=== PATIENT | male | born 1960 | race Caucasian/White ===

== ENCOUNTER → 2016-07-25 | Outpatient (CLI) | payer BC ==
[2016-07-25 08:21] LABS: MEAN CORPUSCULAR HEMOGLOBIN 30.2 pg (27.0-33.0); MEAN CORPUSCULAR HGB CONC 33.6 g/dl (32.0-36.5); MEAN CORPUSCULAR VOLUME 89.8 fl (80.0-96.0); RED CELL DISTRIBUTION WIDTH 13.7 % (11.5-14.5); WHITE BLOOD COUNT 4.7 K/mm3 (4.0-10.0)
[2016-07-25 08:26] LABS: ALBUMIN 4.1 GM/DL (3.2-5.2); ALBUMIN/GLOBULIN RATIO 1.52 (1.00-1.93); ALKALINE PHOSPHATASE 118 U/L (45-117); ALT/SGPT 47 U/L (12-78); ANION GAP 8 MEQ/L (8-16); AST/SGOT 21 U/L (15-37); BILIRUBIN,TOTAL 0.8 MG/DL (0.2-1.0); BLOOD UREA NITROGEN 18 MG/DL (7-18); CALCIUM LEVEL 8.9 MG/DL (8.5-10.1); CARBON DIOXIDE LEVEL 25 MEQ/L (21-32); CHLORIDE LEVEL 108 MEQ/L (98-107); CREATININE FOR GFR 1.09 MG/DL (0.70-1.30); GLOMERULAR FILTRATION RATE > 60.0 (>56); GLUCOSE, FASTING 91 MG/DL (70-105); IMMUNOGLOBULIN A 95.9 MG/DL (70-400); MAGNESIUM LEVEL 2.2 MG/DL (1.8-2.4); POTASSIUM SERUM 4.3 MEQ/L (3.5-5.1); SODIUM LEVEL 141 MEQ/L (136-145); TOTAL PROTEIN 6.8 GM/DL (6.4-8.2)
[2016-07-25 09:02] LABS: VITAMIN B12 LEVEL 366 PG/ML (247-911)
[2016-07-30 00:06] LABS: ANTI-SACCHAROMYCES CEREV. IgA <20.0 Units (0.0-24.9); ANTI-SACCHAROMYCES CEREV. IgG <20.0 Units (0.0-24.9); ENDOMYSIAL ABY IgA Negative (Negative); TISSUE TRANSGLUTAMINASE IgG <2 U/mL (0-5)
== END ==
LOC: M LAB 07:32
PROVIDERS: ATTEND Internal Medicine Gastroenterology
DX: K21.9 Gastro-esophageal reflux disease without esophagitis (principal); K59.1 Functional diarrhea; D51.8 Other vitamin B12 deficiency anemias; E55.9 Vitamin D deficiency, unspecified

== ENCOUNTER → 2016-11-26 | Outpatient (REF) | payer BC | LOC: M SFHCCLAY 15:20 | PROVIDERS: ATTEND Nurse Practitioner | DX: B34.9 Viral infection, unspecified (principal) ==

== ENCOUNTER → 2017-05-12 | Outpatient (CLI) | payer BC ==
--- NOTE | 2017-05-12 16:15 | REP ---
Clinical: Nontraumatic pain times 2 weeks. Technique: AP, lateral, bilateral oblique and sunrise views left knee. Findings: The osseous structures and joint spaces are intact and relatively normal for age. There is no evidence for acute fracture or dislocation. No definite joint effusion is appreciated. Surrounding soft tissues are unremarkable. No subcutaneous emphysema or radiodense foreign body. Impression: Mild age-related changes. No acute fracture or dislocation.
== END ==
LOC: M CLY 15:37
PROVIDERS: ATTEND Family Medicine
DX: M25.562 Pain in left knee (principal)

== ENCOUNTER → 2017-11-03 | Outpatient (CLI) | payer BC ==
[2017-11-03 11:18] LABS: HEMATOCRIT 41.5 % (42.0-52.0); HEMOGLOBIN 14.1 g/dl (13.5-17.5); MEAN CORPUSCULAR HEMOGLOBIN 30.4 pg (27.0-33.0); MEAN CORPUSCULAR VOLUME 89.4 fl (80.0-96.0); PLATELET COUNT, AUTOMATED 132 10^3/uL (150-450); RED BLOOD COUNT 4.64 10^6/uL (4.30-6.10); RED CELL DISTRIBUTION WIDTH 13.1 % (11.5-14.5); WHITE BLOOD COUNT 4.9 10^3/uL (4.0-10.0)
[2017-11-03 11:52] LABS: TOTAL 25(OH) VITAMIN D 30.1 NG/ML (30.0-100.0)
[2017-11-03 12:00] LABS: ALBUMIN 4.1 GM/DL (3.2-5.2); ALBUMIN/GLOBULIN RATIO 1.37 (1.00-1.93); ALKALINE PHOSPHATASE 148 U/L (45-117); ALT/SGPT 70 U/L (12-78); ANION GAP 5 MEQ/L (8-16); AST/SGOT 37 U/L (7-37); BILIRUBIN,TOTAL 1.2 MG/DL (0.2-1.0); BLOOD UREA NITROGEN 13 MG/DL (7-18); CALCIUM LEVEL 8.8 MG/DL (8.5-10.1); CARBON DIOXIDE LEVEL 26 MEQ/L (21-32); CHLORIDE LEVEL 109 MEQ/L (98-107); CREATININE FOR GFR 1.13 MG/DL (0.70-1.30); GLOMERULAR FILTRATION RATE > 60.0 (>56); GLUCOSE, FASTING 96 MG/DL (70-100); MAGNESIUM LEVEL 2.4 MG/DL (1.8-2.4); POTASSIUM SERUM 4.3 MEQ/L (3.5-5.1); SODIUM LEVEL 140 MEQ/L (136-145); TOTAL PROTEIN 7.1 GM/DL (6.4-8.2)
== END ==
LOC: M LAB 10:34
DX: K59.1 Functional diarrhea (principal); K44.9 Diaphragmatic hernia without obstruction or gangrene; K57.30 Diverticulosis of large intestine without perforation or abscess without bleeding; K22.70 Barrett's esophagus without dysplasia
CPT/HCPCS: 83735

== ENCOUNTER → 2017-11-19 | Outpatient (CLI) | payer BC ==
[2017-11-19 15:42] LABS: ALKALINE PHOSPHATASE 147 U/L (45-117); BILIRUBIN,DIRECT 0.2 MG/DL (0.0-0.2); BILIRUBIN,TOTAL 0.9 MG/DL (0.2-1.0); GAMMA GLUTAMYLTRANSPEPTIDASE 573 U/L (15-85)
[2017-11-19 16:25] LABS: STABLE ALKPHOS 32 U/L
[2017-11-19 16:27] LABS: LABILE ALKPHOS 115 U/L
== END ==
LOC: M LAB 14:10
DX: K22.70 Barrett's esophagus without dysplasia (principal); R19.5 Other fecal abnormalities; Z86.010 Personal history of colon polyps; R74.8 Abnormal levels of other serum enzymes
CPT/HCPCS: 82247

== ENCOUNTER → 2018-01-07 | Outpatient (CLI) | payer BC ==
[2018-01-07 09:47] LABS: RHEUMATOID FACTOR QUANT < 10.0 IU/ML (<15.0)
[2018-01-07 09:47] LABS: URIC ACID 8.5 MG/DL (3.5-7.2)
[2018-01-07 09:53] LABS: HEMATOCRIT 41.4 % (42.0-52.0); HEMOGLOBIN 14.1 g/dl (13.5-17.5); MEAN CORPUSCULAR HEMOGLOBIN 30.7 pg (27.0-33.0); MEAN CORPUSCULAR HGB CONC 34.1 g/dl (32.0-36.5); MEAN CORPUSCULAR VOLUME 90.2 fl (80.0-96.0); PLATELET COUNT, AUTOMATED 125 10^3/uL (150-450); RED BLOOD COUNT 4.59 10^6/uL (4.30-6.10); RED CELL DISTRIBUTION WIDTH 12.8 % (11.5-14.5); WHITE BLOOD COUNT 4.9 10^3/uL (4.0-10.0)
[2018-01-07 10:31] LABS: ERYTHROCYTE SEDIMENTATION RATE 7 mm/hr (0-20)
[2018-01-10 00:14] LABS: ANTINUCLEAR ANTIBODIES DIRECT Negative (Negative); Lyme Disease IgG Ab 18 kDa Ban Absent (.); Lyme Disease IgG Ab 23 kDa Ban Absent (.); Lyme Disease IgG Ab 28 kDa Ban Absent (.); Lyme Disease IgG Ab 30 kDa Ban Absent (.); Lyme Disease IgG Ab 39 kDa Ban Absent (.); Lyme Disease IgG Ab 41 kDa Ban Present (.); Lyme Disease IgG Ab 45 kDa Ban Absent (.); Lyme Disease IgG Ab 58 kDa Ban Absent (.); Lyme Disease IgG Ab 66 kDa Ban Absent (.); Lyme Disease IgG Ab 93 kDa Ban Absent (.); Lyme Disease IgG West Blot Int Negative (.); Lyme Disease IgG/IgM Antibodie <0.91 ISR (0.00-0.90); Lyme Disease IgM Ab 23 kDa Ban Present (.); Lyme Disease IgM Ab 39 kDa Ban Absent (.); Lyme Disease IgM Ab 41 kDa Ban Absent (.); Lyme Disease IgM Ab Quantitati 1.05 index (0.00-0.79); Lyme Disease IgM West Blot Int Negative (.)
== END ==
LOC: M LAB 08:15
DX: M79.674 Pain in right toe(s) (principal)
CPT/HCPCS: 73630

== ENCOUNTER → 2018-07-22 | Outpatient (CLI) | payer BC ==
[2018-07-22 08:49] LABS: BLOOD UREA NITROGEN 17 MG/DL (7-18); CALCIUM LEVEL 8.1 MG/DL (8.5-10.1); CARBON DIOXIDE LEVEL 25 MEQ/L (21-32); CHLORIDE LEVEL 106 MEQ/L (98-107); CHOLESTEROL LEVEL 118 MG/DL (<200); CHOLESTEROL RISK RATIO 2.878 (<5); GLOMERULAR FILTRATION RATE > 60.0 (>56); GLUCOSE, FASTING 84 MG/DL (70-100); HDL CHOLESTEROL 41 MG/DL (>40); LDL CHOLESTEROL 0 MG/DL (<100); NON-HDL-C 77 MG/DL; POTASSIUM SERUM 4.3 MEQ/L (3.5-5.1); SODIUM LEVEL 138 MEQ/L (136-145); TRIGLYCERIDES LEVEL 384 MG/DL (<150)
[2018-07-24 08:38] LABS: VITAMIN B12 LEVEL 545 PG/ML (232-1245)
== END ==
LOC: M LAB 07:35
PROVIDERS: ATTEND Internal Medicine Cardiovascular Disease
DX: I25.10 Atherosclerotic heart disease of native coronary artery without angina pectoris (principal); D51.9 Vitamin B12 deficiency anemia, unspecified

== ENCOUNTER 2018-08-26 09:18 | Emergency (ER) | payer BC ==
[~2018-08-26] VITALS: Ht 185.4 cm; Wt 104.5 kg
[2018-08-26] MEDS ORDERED: PRED20TA (09:29)
[2018-08-26] MEDS ORDERED: VITA2000 (09:29)
[2018-08-26] MEDS ORDERED: ZYLO300T6 (09:29)
[2018-08-26] MEDS ORDERED: ATOR80TA59 (09:29)
[2018-08-26] MEDS ORDERED: METO1TAB7 (09:29)
[2018-08-26] MEDS ORDERED: OMEP20CA3 (09:29)
[2018-08-26] MEDS ORDERED: RAMI1CAP24 (09:30)
[2018-08-26] MEDS ORDERED: MECLIZINE 25 MG TABLET PO ONE (10:30)
[2018-08-26 10:51] LABS: BASO % 0.6 % (0.0-1.0); EOS # 0.1 10^3/uL (0.0-0.50); EOS % 2.8 % (0.0-3.0); HEMATOCRIT 41.6 % (42.0-52.0); HEMOGLOBIN 13.9 g/dl (13.5-17.5); LYMPH # 1.1 10^3/uL (1.5-4.5); LYMPH % 22.9 % (24.0-44.0); MEAN CORPUSCULAR HEMOGLOBIN 30.2 pg (27.0-33.0); MEAN CORPUSCULAR HGB CONC 33.4 g/dl (32.0-36.5); MEAN CORPUSCULAR VOLUME 90.4 fl (80.0-96.0); MONO # 0.3 10^3/uL (0.0-0.8); MONO % 5.6 % (0.0-5.0); NEUTROPHILS # 3.3 10^3/uL (1.8-7.7); NEUTROPHILS % 66.7 % (36.0-66.0); PLATELET COUNT, AUTOMATED 132 10^3/uL (150-450)
[2018-08-26 11:04] LABS: BLOOD UREA NITROGEN 13 MG/DL (7-18); CALCIUM LEVEL 8.8 MG/DL (8.5-10.1); CARBON DIOXIDE LEVEL 26 MEQ/L (21-32); CHLORIDE LEVEL 106 MEQ/L (98-107); CPK CREATINE PHOSPHOKINASE 110 U/L (39-308); CREATININE FOR GFR 1.05 MG/DL (0.70-1.30); GLOMERULAR FILTRATION RATE > 60.0 (>56); GLUCOSE, FASTING 98 MG/DL (70-100); MB/CK RELATIVE INDEX 1.36 (< OR =4); SODIUM LEVEL 139 MEQ/L (136-145); TROPONIN I 0.19 NG/ML (< 0.10)
--- NOTE | 2018-08-26 11:08 | REP ---
Clinical: Near-syncopal episode . Comparison: 09/08/2014 . Findings: The mediastinum and cardiac silhouette are stable and within normal limits for portable technique. The lung jefferson are clear without acute consolidation, effusion, or pneumothorax. Skeletal structures are intact. Impression: No acute cardiopulmonary process appreciated. Electronically Signed by Federico Higuera MD 08/26/2018 10:59 A
--- NOTE | 2018-08-26 11:11 | REP ---
CT Head without contrast HISTORY: Vertigo COMPARISON: None There is no intraparenchymal hemorrhage, acute infarct, mass or midline shift. The ventricular system is normal in appearance. A cavum septum pellucidi and vergae are present. The cortical sulci are dilated consistent with minimal volume loss. There is no extra cerebral collection. There is no fracture. The visualized sinuses are clear. IMPRESSION: Minimal volume loss. Electronically Signed by Richy Marsh MD 08/26/2018 11:02 A
[2018-08-26 12:31] VITALS: BP 129/86
[2018-08-26 12:44] LABS: MB/CK RELATIVE INDEX 1.46 (< OR =4); TROPONIN I 0.16 NG/ML (< 0.10)
[2018-08-26] MEDS ORDERED: MECL-68 PO (13:16)
--- NOTE | 2018-08-26 20:58 | ECGEPIP ---
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
--- NOTE | 2018-08-26 21:03 | ECGEPIP ---
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
== END 2018-08-26 13:33 | disposition home or self-care (01) ==
LOC: M ED 09:18
DX: H83.09 Labyrinthitis, unspecified ear (principal); I10 Essential (primary) hypertension; E78.5 Hyperlipidemia, unspecified; I25.10 Atherosclerotic heart disease of native coronary artery without angina pectoris; I25.2 Old myocardial infarction; Z95.5 Presence of coronary angioplasty implant and graft; Z79.899 Other long term (current) drug therapy

== ENCOUNTER → 2018-10-01 | Outpatient (CLI) | payer BC ==
[~2018-10-01] MED LIST: ATOR80TA59; MECL-68 PO; METO1TAB7; OMEP20CA3; PRED20TA; RAMI1CAP24; VITA2000; ZYLO300T6
[2018-10-01 11:26] LABS: HEMATOCRIT 42.9 % (42.0-52.0); HEMOGLOBIN 14.3 g/dl (13.5-17.5); MEAN CORPUSCULAR HGB CONC 33.3 g/dl (32.0-36.5); MEAN CORPUSCULAR VOLUME 89.9 fl (80.0-96.0); PLATELET COUNT, AUTOMATED 142 10^3/uL (150-450); RED BLOOD COUNT 4.77 10^6/uL (4.30-6.10); WHITE BLOOD COUNT 6.1 10^3/uL (4.0-10.0)
[2018-10-01 11:49] LABS: ALBUMIN 4.3 GM/DL (3.2-5.2); ALT/SGPT 50 U/L (12-78); BILIRUBIN,TOTAL 0.9 MG/DL (0.2-1.0); BLOOD UREA NITROGEN 15 MG/DL (7-18); CALCIUM LEVEL 8.7 MG/DL (8.5-10.1); CARBON DIOXIDE LEVEL 29 MEQ/L (21-32); CHLORIDE LEVEL 105 MEQ/L (98-107); CREATININE FOR GFR 1.02 MG/DL (0.70-1.30); GLOMERULAR FILTRATION RATE > 60.0 (>56); GLUCOSE, FASTING 79 MG/DL (70-100); POTASSIUM SERUM 4.2 MEQ/L (3.5-5.1); SODIUM LEVEL 140 MEQ/L (136-145); TOTAL PROTEIN 6.9 GM/DL (6.4-8.2); URIC ACID 4.5 MG/DL (3.5-7.2)
--- NOTE | 2018-10-01 12:25 | REP ---
RIGHT TOE, FIVE VIEWS: HISTORY: Gout. There is no acute fracture or dislocation. The joint spaces are normal in appearance. IMPRESSION: There is no acute fracture or dislocation. Electronically Signed by Richy Marsh MD 10/01/2018 12:32 P
== END ==
LOC: M LAB 10:51
PROVIDERS: ATTEND Nurse Practitioner Family
DX: D64.9 Anemia, unspecified (principal); I10 Essential (primary) hypertension; M1A.9XX1 Chronic gout, unspecified, with tophus (tophi)

== ENCOUNTER → 2019-03-10 | Outpatient (CLI) | payer BC ==
[~2019-03-10] MED LIST changes: -OMEP20CA3; +OMEP20CA4
[2019-03-10 09:39] LABS: HEMATOCRIT 41.1 % (42.0-52.0); HEMOGLOBIN 14.1 g/dl (13.5-17.5); MEAN CORPUSCULAR HEMOGLOBIN 31.5 pg (27.0-33.0); MEAN CORPUSCULAR HGB CONC 34.3 g/dl (32.0-36.5); MEAN CORPUSCULAR VOLUME 91.9 fl (80.0-96.0); PLATELET COUNT, AUTOMATED 116 10^3/uL (150-450); RED BLOOD COUNT 4.47 10^6/uL (4.30-6.10)
[2019-03-10 10:06] LABS: ALBUMIN 3.9 GM/DL (3.2-5.2); ALT/SGPT 45 U/L (12-78); BILIRUBIN,TOTAL 0.8 MG/DL (0.2-1.0); BLOOD UREA NITROGEN 17 MG/DL (7-18); CALCIUM LEVEL 9.2 MG/DL (8.5-10.1); CARBON DIOXIDE LEVEL 23 MEQ/L (21-32); CHLORIDE LEVEL 106 MEQ/L (98-107); CREATININE FOR GFR 1.02 MG/DL (0.70-1.30); FERRITIN 350 NG/ML (26-388); GAMMA GLUTAMYLTRANSPEPTIDASE 274 U/L (15-85); GLOMERULAR FILTRATION RATE > 60.0 (>56); GLUCOSE, FASTING 119 MG/DL (70-100); IRON (FE) 81 UG/DL (65-175); MAGNESIUM LEVEL 1.8 MG/DL (1.8-2.4); PERCENT SATURATION 25.4 % (19.7-50.0); POTASSIUM SERUM 3.9 MEQ/L (3.5-5.1); SODIUM LEVEL 141 MEQ/L (136-145); TOTAL IRON BINDING CAPACITY 319 UG/DL (250-450); TOTAL PROTEIN 6.3 GM/DL (6.4-8.2)
[2019-03-10 10:12] LABS: TOTAL 25(OH) VITAMIN D 38.3 NG/ML (30.0-100.0); VITAMIN B12 LEVEL 508 PG/ML (247-911)
== END ==
LOC: M LAB 08:26
PROVIDERS: ATTEND Internal Medicine Gastroenterology
DX: Z90.5 Acquired absence of kidney (principal)

== ENCOUNTER → 2019-12-01 | Outpatient (CLI) | payer BC ==
[~2019-12-01] MED LIST changes: -MECL-68 PO; +MECL1TAB31 PO; +OMEP1CAP73; -OMEP20CA4
[2019-12-01 13:42] LABS: BASO % 0.8 % (0.0-1.0); EOS # 0.2 10^3/uL (0.0-0.5); EOS % 3.6 % (0.0-3.0); HEMATOCRIT 43.3 % (42.0-52.0); LYMPH # 1.5 10^3/uL (1.5-5.0); MEAN CORPUSCULAR HEMOGLOBIN 29.5 pg (27.0-33.0); MEAN CORPUSCULAR HGB CONC 32.3 g/dl (32.0-36.5); MEAN CORPUSCULAR VOLUME 91.4 fl (80.0-96.0); MONO # 0.4 10^3/uL (0.0-0.8); NEUTROPHILS # 2.9 10^3/uL (1.5-8.5); RED BLOOD COUNT 4.74 10^6/uL (4.30-6.10)
[2019-12-01 13:55] LABS: PLTBLUE- EDTA FREE CALC 116 K/mm3 (172-450)
[2019-12-01 14:09] LABS: PLATELET COUNT, AUTOMATED 124 10^3/uL (150-450)
[2019-12-01 14:20] LABS: PLTBLUE- EDTA FREE MACHINE 105 10^3/uL (172-450)
== END ==
LOC: M LAB 12:42
PROVIDERS: ATTEND Family Medicine
DX: D69.6 Thrombocytopenia, unspecified (principal)

== ENCOUNTER → 2020-08-14 | Outpatient (CLI) | payer SELFPAY | LOC: M LABSMTC 11:26 | PROVIDERS: ATTEND Pediatrics | DX: Z20.822 Contact with and (suspected) exposure to COVID-19 (principal) ==

== ENCOUNTER → 2020-10-30 | Outpatient (REF) | payer BC | LOC: M SFHCCLAY 11:44 | PROVIDERS: ATTEND Family Medicine | DX: B35.1 Tinea unguium (principal) ==

== ENCOUNTER → 2020-11-16 | Outpatient (REF) | payer BC | LOC: M SFHCCLAY 07:36 | PROVIDERS: ATTEND Family Medicine | DX: Z53.9 Procedure and treatment not carried out, unspecified reason (principal); M10.9 Gout, unspecified; D69.6 Thrombocytopenia, unspecified; I25.2 Old myocardial infarction; Z95.5 Presence of coronary angioplasty implant and graft; I10 Essential (primary) hypertension ==

== ENCOUNTER → 2020-11-22 | Outpatient (CLI) | payer BC ==
[2020-11-22 11:38] LABS: BILIRUBIN,DIRECT 0.2 MG/DL (0.0-0.2); MAGNESIUM LEVEL 2.1 MG/DL (1.8-2.4); TOTAL PROTEIN 6.5 GM/DL (6.4-8.2)
[2020-11-22 11:39] LABS: TOTAL 25(OH) VITAMIN D 32.1 NG/ML (30.0-100.0)
== END ==
LOC: M LAB 08:12
PROVIDERS: ATTEND Nurse Practitioner Family
DX: K22.70 Barrett's esophagus without dysplasia (principal); K21.9 Gastro-esophageal reflux disease without esophagitis; Z86.010 Personal history of colon polyps; K76.0 Fatty (change of) liver, not elsewhere classified; E55.9 Vitamin D deficiency, unspecified

== ENCOUNTER → 2020-11-22 | Outpatient (CLI) | payer BC ==
[2020-11-22 09:24] LABS: BASO % 0.9 % (0.0-1.0); EOS # 0.1 10^3/uL (0.0-0.5); EOS % 2.6 % (0.0-3.0); HEMATOCRIT 42.3 % (42.0-52.0); HEMOGLOBIN 13.9 g/dl (13.5-17.5); LYMPH % 23.5 % (24.0-44.0); MEAN CORPUSCULAR HEMOGLOBIN 30.1 pg (27.0-33.0); MEAN CORPUSCULAR HGB CONC 32.9 g/dl (32.0-36.5); MEAN CORPUSCULAR VOLUME 91.6 fl (80.0-96.0); MONO # 0.3 10^3/uL (0.0-0.8); MONO % 7.3 % (2.0-8.0); NEUTROPHILS # 2.7 10^3/uL (1.5-8.5); NEUTROPHILS % 64.8 % (36.0-66.0); PLATELET COUNT, AUTOMATED 119 10^3/uL (150-450); RED BLOOD COUNT 4.62 10^6/uL (4.30-6.10); WHITE BLOOD COUNT 4.2 10^3/uL (4.0-10.0)
[2020-11-22 11:38] LABS: BLOOD UREA NITROGEN 14 MG/DL (7-18); CALCIUM LEVEL 8.8 MG/DL (8.5-10.1); CARBON DIOXIDE LEVEL 26 MEQ/L (21-32); CHLORIDE LEVEL 106 MEQ/L (98-107); CHOLESTEROL LEVEL 111 MG/DL (<200); CHOLESTEROL RISK RATIO 2.413 (<5); CREATININE FOR GFR 1.08 MG/DL (0.70-1.30); GLOMERULAR FILTRATION RATE > 60.0 (>56); GLUCOSE, FASTING 86 MG/DL (70-100); HDL CHOLESTEROL 46 MG/DL (>40); LDL CHOLESTEROL 18 MG/DL (<100); NON-HDL-C 65 MG/DL; POTASSIUM SERUM 4.2 MEQ/L (3.5-5.1); SODIUM LEVEL 139 MEQ/L (136-145); TRIGLYCERIDES LEVEL 235 MG/DL (<150); URIC ACID 4.7 MG/DL (3.5-7.2)
== END ==
LOC: M LAB 08:08
PROVIDERS: ATTEND Family Medicine
DX: M10.9 Gout, unspecified (principal); D69.6 Thrombocytopenia, unspecified; I25.2 Old myocardial infarction; E78.00 Pure hypercholesterolemia, unspecified; I10 Essential (primary) hypertension; Z95.5 Presence of coronary angioplasty implant and graft

== ENCOUNTER → 2021-03-28 | Outpatient (CLI) | payer BC | LOC: M LABSMTC 10:03 | PROVIDERS: ATTEND Pediatrics | DX: Z20.822 Contact with and (suspected) exposure to COVID-19 (principal) | CPT/HCPCS: C9803; U0003 ==

== ENCOUNTER 2021-05-17 10:27 | Emergency (ER) | payer BC ==
[~2021-05-17] VITALS: Ht 188 cm; Wt 111.3 kg
--- OUTSIDE RECORDS SUMMARY | 2021-05-17 10:35 | CCD ---
Author Author [facility] Organization [facility] Address Unknown Phone Unavailable Care Team Providers Care Cotton Ginner Helper Name Role Phone Billy De La Torre Unavailable PROBLEMS Type Condition ICD9-CM Code [id number] Code Onset Dates Condition S tatus W/U Status Risk SNOMED Code Notes Problem Lyme disease A69.20 Active confirmed 6688002 6 Problem Essential hypertension I10 Active confirmed 10496044 Problem Plantar fasciitis M72.2 Active confirmed 20 7364935 Problem Arthritis M19.90 Active confirmed 7769730 Problem Irritable bowel syndrome with diarrhea K58.0 A ctive confirmed 590499817 Problem Vitamin B12 deficiency E53.8 Active confirmed 692274944 Problem Sinusitis, unspecified chronicity, unspecified location J32.9 Active confirmed 41259663 Problem Diaphragmatic hernia without obstruction and without gangr robe K44.9 Active confirmed 05297033 Problem Cough R05 Active confirmed 53408690 Problem Chronic pansinusitis J32.4 Active confirmed 99237177 Problem 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, unspecified cause M1A.9XX0 Active confirmed 742110493 Problem Thrombocytopenia D69.6 Active confirmed 415 966370 Problem BRAIN (obstructive sleep apnea) G47.33 Active confirm ed 76281286 Problem 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, unspecified cause M1A.9XX1 Active confirmed 45759987 Problem Other malaise and fatigue R53.81 Active confirmed 836006982 Problem Encounter for general adult medical examination without abnormal findings Z00.00 Active confirmed 973119104 Problem Gout involving toe, unspecif ied cause, unspecified chronicity, unspecified laterality M10.9 Active confirmed 2039301 04 Problem Anemia, unspecified type D64.9 Active confirmed 289352282 Problem Other and unspecified hyperlipidemia E78.5 Act nupur confirmed 65770072 Problem Allergic rhinitis, unspecified seasonality, unspecifie d trigger J30.9 Active confirmed 55287314 Problem History of anterior wall myocardial infarction I25 .2 Active confirmed 436638400 Problem Hypercholesterolemia E78.00 Active confirmed 65793133 Problem S/P coronary artery stent placement Z95.5 Acti ve confirmed 373955848 ALLERGIES No Known Allergies ENCOUNTERS from 1960 to 2021-03-27 Encounter Location Date Provider Diagnosis [facility] [address] [facility] [phone] [place] [address] Feb, Billy De La Torre IMMUNIZATIONS Vaccine Route Administration Date Status Vitamin B-12 1000mcg/1mL Cyanocobalamin IM Intramuscular May 29, 2016 Administered Vitamin B-12 1000mcg/1mL Cyanocobalamin IM Intramuscular May 01, 2016 Administered Vitamin B-12 1000mcg/1mL Cyanocobalamin IM Intramuscular Apr 11, 2016 Administered Vitamin B-12 1000mcg/1mL Cyanocobalamin IM Intramuscular Feb Administered Vitamin B-12 1000mcg/1mL Cyanocobalamin IM Intramuscular Feb 01, 2016 Administered Vitamin B-12 1000mcg/1mL Cyanocobalamin IM Intramuscular December Administered COVID-19 dose #1 given elsewhere Unspecified Unknown [facility] 2020 Administered Vitamin B-12 1000mcg/1mL Cyanocobalamin IM Intramuscular November Administered COVID-19 dose #2 given elsewhere Unspecified Unknown [facility] 2020 Administered Vitamin B-12 1000mcg/1mL Cyanocobalamin IM Intramuscular Aug 24, 2015 Administered Influenza 6mo & up Fluzone IM Intramuscular Aug 02, 2016 Admi nistered SOCIAL HISTORY Tobacco Use: Social History Observation Description Date Details (start date - stop date) Never Smoker Sex Assigned At : Social History Observation Description Sex Assigned At Unknown Education: Question Answer Notes Level of Education: Finished College Audit Question Answer Notes Total Score: 9 Interpretation: Simple Advice Language: Question Answer Notes Languages spoken: Belarusian Baptist: Question Answer Notes Baptist No congregation beliefs that would impact health care. Sexual Hx: Question Answer Notes Had sex in the last 12 months (vaginal, oral, or anal)? Yes Have you ever had an STD? No with Women only Use protection? No Drug and Alcohol Question Answer Notes Total Score: 0 Interpretation: No problems reported Alcohol Screening: Question Answer Notes Did you have a drink containing alcohol in the past year? No Points 0 Interpretation Negative BMI Care Goal Follow-Up Question Answer Notes Above Normal BMI Follow-Up Dietary management educatio n, guidance, and counseling Tobacco Use: Question Answer Notes Are you a: never smoker NEVER A SMOKER REASON FOR REFERRAL No Information VITAL SIGNS No information MEDICATIONS Medication SIG (Take, Route, Frequency, Duration) Notes Start Da te End Date Status Lipitor 80 MG 1 tablet Orally Once a day Active Vitamin B 12 100 MCG Orally Acti ve Toprol XL 50mg 1 Orally Once a day A ctive Colchicine 0.6 MG 1 capsule Orally bid Sep, Active Aspirin 81 MG 1 tablet Orally Daily Active Allopurinol 300 MG 1 tablet Orally Once a day for 90 Active Mometasone Furoate 50 MCG/ACT 2 sprays in each nostril Nasally Once a day for 30 day(s) Nov, Active hydrOXYzine HCl 25 mg 1 tablet as needed Orally qhs, prn sleep Active Altace 5 5mg 1 oral daily Active Omeprazole 20 MG 1 capsule Orally Once a day Active PROCEDURES No Information RESULTS No Results REASON FOR VISIT cold sx MEDICAL (GENERAL) HISTORY Type Description Date Medical History Hx of [place] Medical History Hx heart burn Medical History Glaucoma-Dr Douglas Medical History Lyme disease Medical History CPAP Medical History Colonoscopy/Endoscopy 08/2016 Surgical History Stents cardiac 2005 Surgical History Colonoscopy/ endoscopy 2016 Surgical History Left arthroscopic knee 2017 Surgical History ENT [facility] 2020 Hospitalization History Heart Issues Hospitalization History surgery Goals Section No Information Health Concerns No Information MEDICAL EQUIPMENT No Information MENTAL STATUS No Information FUNCTIONAL STATUS No Information ASSESSMENTS No Information PLAN OF TREATMENT Medication Medication Name Sig Start Date Stop Date Lipitor 80 MG 1 tablet Orally Once a day hydrOXYzine HCl 25 mg 1 tablet as needed Orally qhs, prn sleep Altace 5 5mg 1 oral daily Mometasone Furoate 50 MCG/ACT 2 sprays in each nostril Nasally Once a day for 30 day(s) Nov, Toprol XL 50mg 1 Orally Once a day Vitamin B 12 100 MCG Orally Colchicine 0.6 MG 1 capsule Orally bid Sep, Aspirin 81 MG 1 tablet Orally Daily Allopurinol 300 MG 1 tablet Orally Once a day for 90 Omeprazole 20 MG 1 capsule Orally Once a day Next Appt Details Provider Name:Shanice Denson, 2021-06-06 02:15:00 PM, [address] [place] [address], , [place], [address], Provider Name:Billy De La Torre, 2021-11-20 07 :15:00 AM, [address] [place] [address], , [place], [address], Insurance Providers Payer Name Payer Address Payer Phone Insured Name Patient Relati onship to Insured Coverage Start Date Coverage End Date [phone] [facility] [place] [address] NIVIA ARMSTRONG self
--- OUTSIDE RECORDS SUMMARY | 2021-05-17 10:35 | CCD ---
Author Author [facility] Organization [facility] Address Unknown Phone Unavailable Care Team Providers Care Paid Internship Name Role Phone Billy De La Torre Unavailable PROBLEMS Type Condition ICD9-CM Code [id number] Code Onset Dates Condition S tatus W/U Status Risk SNOMED Code Notes Problem Lyme disease A69.20 Active confirmed 6005021 6 Problem Essential hypertension I10 Active confirmed 27455508 Problem Plantar fasciitis M72.2 Active confirmed 20 7801729 Problem Arthritis M19.90 Active confirmed 3540340 Problem Irritable bowel syndrome with diarrhea K58.0 A ctive confirmed 922772516 Problem Vitamin B12 deficiency E53.8 Active confirmed 228382698 Problem Sinusitis, unspecified chronicity, unspecified location J32.9 Active confirmed 89661761 Problem Diaphragmatic hernia without obstruction and without gangr robe K44.9 Active confirmed 57416045 Problem Cough R05 Active confirmed 76416747 Problem Chronic pansinusitis J32.4 Active confirmed 63381534 Problem 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, unspecified cause M1A.9XX0 Active confirmed 852309514 Problem Thrombocytopenia D69.6 Active confirmed 415 159539 Problem BRAIN (obstructive sleep apnea) G47.33 Active confirm ed 01819289 Problem 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, unspecified cause M1A.9XX1 Active confirmed 56983906 Problem Other malaise and fatigue R53.81 Active confirmed 348304343 Problem Encounter for general adult medical examination without abnormal findings Z00.00 Active confirmed 855070445 Problem Gout involving toe, unspecif ied cause, unspecified chronicity, unspecified laterality M10.9 Active confirmed 5260919 04 Problem Anemia, unspecified type D64.9 Active confirmed 056535739 Problem Other and unspecified hyperlipidemia E78.5 Act nupur confirmed 20799145 Problem Allergic rhinitis, unspecified seasonality, unspecifie d trigger J30.9 Active confirmed 44034409 Problem History of anterior wall myocardial infarction I25 .2 Active confirmed 290301411 Problem Hypercholesterolemia E78.00 Active confirmed 28993604 Problem S/P coronary artery stent placement Z95.5 Acti ve confirmed 011497259 ALLERGIES No Known Allergies ENCOUNTERS from 1960 to 2021-04-12 Encounter Location Date Provider Diagnosis [facility] George Kalli CHILO [phone] [place] [address] 14 Mar, 2021 Billy De La Torre IMMUNIZATIONS Vaccine Route Administration Date Status COVID-19 dose #2 given elsewhere Unspecified Unknown [facility] 2020 Administered COVID-19 dose #1 given elsewhere Unspecified Unknown [facility] 2020 Administered Vitamin B-12 1000mcg/1mL Cyanocobalamin IM Intramuscular Apr 11, 2016 Administered Vitamin B-12 1000mcg/1mL Cyanocobalamin IM Intramuscular Feb Administered Vitamin B-12 1000mcg/1mL Cyanocobalamin IM Intramuscular Feb 01, 2016 Administered Vitamin B-12 1000mcg/1mL Cyanocobalamin IM Intramuscular December Administered Vitamin B-12 1000mcg/1mL Cyanocobalamin IM Intramuscular May 01, 2016 Administered Vitamin B-12 1000mcg/1mL Cyanocobalamin IM Intramuscular November Administered Vitamin B-12 1000mcg/1mL Cyanocobalamin IM Intramuscular [...] Advice Language: Question Answer Notes Languages spoken: Estonian Sabianist: Question Answer Notes Sabianist No mormon beliefs that would impact health care. Sexual [...] 1 Orally Once a day A ctive Aspirin 81 MG 1 tablet Orally Daily Active Altace 5 5mg 1 oral daily Active Omeprazole 20 MG 1 capsule Orally Once a day Active Mometasone Furoate 50 MCG/ACT 2 sprays in each nostril Nasally Once a day for 30 day(s) Nov, Active hydrOXYzine HCl 25 mg 1 tablet as needed Orally qhs, prn sleep Active Allopurinol 300 MG TAKE ONE TABLET BY MOUTH EVERY DAY for 90 Active Colchicine 0.6 MG 1 capsule Orally bid Sep, Active PROCEDURES No Information RESULTS No Results REASON FOR VISIT No Information MEDICAL (GENERAL) HISTORY Type Description Date Medical History Hx of [place] Medical History Hx heart burn Medical History Glaucoma-Dr Douglas Medical History Lyme disease Medical History CPAP Medical History Colonoscopy/Endoscopy 08/2016 Surgical History Stents cardiac 2004 Surgical History Colonoscopy/ endoscopy 2016 Surgical History Left arthroscopic knee 2017 Surgical History ENT [facility] 2020 Hospitalization History Heart Issues Hospitalization History surgery Goals Section No Information Health Concerns No Information MEDICAL EQUIPMENT No Information MENTAL STATUS No Information FUNCTIONAL STATUS No Information ASSESSMENTS No Information PLAN OF TREATMENT Medication Medication Name Sig Start Date Stop Date Lipitor 80 MG 1 tablet Orally Once a day hydrOXYzine HCl 25 mg 1 tablet as needed Orally qhs, prn sleep Allopurinol 300 MG TAKE ONE TABLET BY MOUTH EVERY DAY for 90 Mometasone Furoate 50 MCG/ACT 2 sprays in each nostril Nasally Once a day for 30 day(s) Nov, Toprol XL 50mg 1 Orally Once a day Vitamin B 12 100 MCG Orally Aspirin 81 MG 1 tablet Orally Daily Altace 5 5mg 1 oral daily Omeprazole 20 MG 1 capsule Orally Once a day Colchicine 0.6 MG 1 capsule Orally bid Sep, Next Appt Details Provider Name:Shanice Denson, 2021-06-06 02:15:00 PM, [address] [place] [address], , [place], [address], Provider Name:Billy De La Torre, 2021-11-20 07 :15:00 AM, [address] [place] [address], , [place], [address], Insurance Providers Payer Name Payer Address Payer Phone Insured Name Patient Relati onship to Insured Coverage Start Date Coverage End Date [facility] [place] [facility] [phone] [facility] [place] [facility] [address] NIVIA ARMSTRONG self
--- OUTSIDE RECORDS SUMMARY | 2021-05-17 10:35 | CCD ---
Author Author [facility] Organization [facility] Address Unknown Phone Unavailable Care Team Providers Care Manager Metrology Name Role Phone Billy De La Torre Unavailable PROBLEMS Type Condition ICD9-CM Code LGE50-GL Code Onset Dates Condition S tatus W/U Status Risk SNOMED Code Notes Problem Lyme disease A69.20 Active confirmed 9233546 6 Problem Essential hypertension I10 Active confirmed 34521996 Problem Plantar fasciitis M72.2 Active confirmed 20 1188248 Problem Arthritis M19.90 Active confirmed 8740349 Problem Irritable bowel syndrome with diarrhea K58.0 A ctive confirmed 171304511 Problem Vitamin B12 deficiency E53.8 Active confirmed 421595547 Problem Sinusitis, unspecified chronicity, unspecified location J32.9 Active confirmed 30467034 Problem Diaphragmatic hernia without obstruction and without gangr robe K44.9 Active confirmed 82379777 Problem Cough R05 Active confirmed 56525532 Problem Chronic pansinusitis J32.4 Active confirmed 85357527 Problem 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, unspecified cause M1A.9XX0 Active confirmed 668238262 Problem Thrombocytopenia D69.6 Active confirmed 415 063381 Problem BRAIN (obstructive sleep apnea) G47.33 Active confirm ed 93807045 Problem 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, unspecified cause M1A.9XX1 Active confirmed 48815521 Problem Other malaise and fatigue R53.81 Active confirmed 977987145 Problem Encounter for general adult medical examination without abnormal findings Z00.00 Active confirmed 348850890 Problem Gout involving toe, unspecif ied cause, unspecified chronicity, unspecified laterality M10.9 Active confirmed 2645253 04 Problem Anemia, unspecified type D64.9 Active confirmed 637254644 Problem Other and unspecified hyperlipidemia E78.5 Act nupur confirmed 81785318 Problem Allergic rhinitis, unspecified seasonality, unspecifie d trigger J30.9 Active confirmed 48426157 Problem History of anterior wall myocardial infarction I25 .2 Active confirmed 081846782 Problem Hypercholesterolemia E78.00 Active confirmed 94182112 Problem S/P coronary artery stent placement Z95.5 Acti ve confirmed 423600991 ALLERGIES No Known Allergies ENCOUNTERS from 1960 to 2021-04-05 Encounter Location Date Provider Diagnosis [facility] [phone] [place] [address] Mar, Billy De La Torre IMMUNIZATIONS Vaccine Route [...] COVID-19 dose #1 given elsewhere Unspecified Unknown [facility] 2020 Administered Vitamin B-12 1000mcg/1mL Cyanocobalamin IM Intramuscular November Administered COVID-19 dose #2 given elsewhere Unspecified Unknown [facility] 2020 Administered Vitamin B-12 1000mcg/1mL Cyanocobalamin IM [...] Advice Language: Question Answer Notes Languages spoken: Uzbek Sabianist: Question Answer Notes Sabianist No baptism beliefs that would impact health care. Sexual [...] Type Description Date Medical History Hx of [place] Medical History Hx heart burn Medical History Glaucoma-Dr Douglas Medical History Lyme disease Medical History CPAP Medical History Colonoscopy/Endoscopy 08/2016 Surgical History Stents cardiac 2004 Surgical History Colonoscopy/ endoscopy 2016 Surgical History Left arthroscopic knee 2017 Surgical History ENT [facility] 2020 Hospitalization History Heart Issues Hospitalization [...] Details Provider Name:Shanice Denson, 2021-06-06 02:15:00 PM, [address] [place] [address], , [place], [address], Provider Name:Billy De La Torre, 2021-11-20 07 :15:00 AM, [address] [place] [address], , [place], [address], Insurance Providers Payer Name Payer Address Payer Phone Insured Name Patient Relati onship to Insured Coverage Start Date Coverage End Date BCBS [place] [phone] [facility] [place] [facility] [place] [address] NIVIA ARMSTRONG self
--- OUTSIDE RECORDS SUMMARY | 2021-05-17 10:35 | CCD ---
Author Author [facility] Organization [facility] Address Unknown Phone Unavailable Care Team Providers Care Cold Food Packer Name Role Phone Billy De La Torre Unavailable PROBLEMS Type Condition ICD9-CM Code EWS57-BG Code Onset Dates Condition S tatus W/U Status Risk SNOMED Code Notes Problem Lyme disease A69.20 Active confirmed 4935564 6 Problem Essential hypertension I10 Active confirmed 07387351 Problem Plantar fasciitis M72.2 Active confirmed 20 7192987 Problem Arthritis M19.90 Active confirmed 4957669 Problem Irritable bowel syndrome with diarrhea K58.0 A ctive confirmed 981000811 Problem Vitamin B12 deficiency E53.8 Active confirmed 840102107 Problem Sinusitis, unspecified chronicity, unspecified location J32.9 Active confirmed 31714304 Problem Diaphragmatic hernia without obstruction and without gangr robe K44.9 Active confirmed 33957394 Problem Cough R05 Active confirmed 00064321 Problem Chronic pansinusitis J32.4 Active confirmed 02951541 Problem 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, unspecified cause M1A.9XX0 Active confirmed 732133426 Problem Thrombocytopenia D69.6 Active confirmed 415 552694 Problem BRAIN (obstructive sleep apnea) G47.33 Active confirm ed 95990187 Problem 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, unspecified cause M1A.9XX1 Active confirmed 16078003 Problem Other malaise and fatigue R53.81 Active confirmed 214950200 Problem Encounter for general adult medical examination without abnormal findings Z00.00 Active confirmed 229130768 Problem Gout involving toe, unspecif ied cause, unspecified chronicity, unspecified laterality M10.9 Active confirmed 7958943 04 Problem Anemia, unspecified type D64.9 Active confirmed 762746647 Problem Other and unspecified hyperlipidemia E78.5 Act nupur confirmed 28835901 Problem Allergic rhinitis, unspecified seasonality, unspecifie d trigger J30.9 Active confirmed 16527579 Problem History of anterior wall myocardial infarction I25 .2 Active confirmed 852939768 Problem Hypercholesterolemia E78.00 Active confirmed 30795163 Problem S/P coronary artery stent placement Z95.5 Acti ve confirmed 432727535 ALLERGIES No Known Allergies ENCOUNTERS from 1960 to 2021-04-12 Encounter Location Date Provider Diagnosis [facility] George Kalli CHILO [phone] [place] [address] 14 Mar, 2021 Billy De La Torre IMMUNIZATIONS Vaccine Route Administration Date Status COVID-19 dose #2 given elsewhere Unspecified Unknown [facility] 2020 Administered COVID-19 dose #1 given elsewhere Unspecified Unknown [facility] 2020 Administered Vitamin B-12 1000mcg/1mL Cyanocobalamin IM [...] Advice Language: Question Answer Notes Languages spoken: Pashto Tenriism: Question Answer Notes Tenriism No congregation beliefs that would impact health [...] Type Description Date Medical History Hx of [place] Medical History Hx heart burn Medical History Glaucoma-Dr Douglas Medical History Lyme disease Medical History CPAP Medical History Colonoscopy/Endoscopy 08/2016 Surgical History Stents cardiac 2004 Surgical History Colonoscopy/ endoscopy 2016 Surgical History Left arthroscopic knee 2017 Surgical History ENT [facility] 2020 Hospitalization History Heart Issues [...] Details Provider Name:Shanice Denson, 2021-06-06 02:15:00 PM, [address] [place] [address], , [place], [address], Provider Name:Billy De La Torre, 2021-11-20 07 :15:00 AM, [address] [place] [address], , [place], [address], Insurance Providers Payer Name Payer Address Payer Phone Insured Name Patient Relati onship to Insured Coverage Start Date Coverage End Date [facility] [place] [phone] [facility] [place] [facility] [place] [address] NIVIA ARMSTRONG self
--- OUTSIDE RECORDS SUMMARY | 2021-05-17 10:36 | CCD ---
Author Author [facility] Organization [facility] Address Unknown Phone Unavailable Care Team Providers Care Inspector Tool Name Role Phone Shorty EPPS, T Javad Unavailable Shorty EPPS, T Javad Unavailable Shorty EPPS, T Javad Unavailable Shorty EPPS, T Javad Unavailable Shorty EPPS, T Javad Unavailable Shorty EPPS, T Javad Unavailable Shorty EPPS, T Javad Unavailable Shorty EPPS, T Javad Unavailable Shorty EPPS, T Javad Unavailable Shorty EPPS, T Javad Unavailable Shorty EPPS, T Javad Unavailable Shorty EPPS, T Javad Unavailable Shorty EPPS, T Javad Unavailable Shorty EPPS, T Javad Unavailable Shorty EPPS, T Javad Unavailable Shorty EPPS, T Javad Unavailable Shorty EPPS, T Javad Unavailable Shorty EPPS, T Javad Unavailable Shorty EPPS, T Javad Unavailable Shorty MD, T Javad Unavailable Shorty EPPS, T Javad Unavailable Shorty MD, T Javad Unavailable Shorty MD, T Javad Unavailable Shorty MD, T Javad Unavailable Shorty MD, T Javad Unavailable Shorty MD, T Javad Unavailable Shorty MD, T Javad Unavailable Shorty MD, T Javad Unavailable Shorty MD, T Javad Unavailable Shorty MD, T Javad Unavailable Shorty MD, T Javad Unavailable Shorty MD, T Javad Unavailable Shorty MD, T Javad Unavailable Shorty MD, T Javad Unavailable Shorty MD, T Javad Unavailable Shorty EPPS, T Javad Unavailable Shorty MD, T Javad Unavailable Shorty MD, T Javad Unavailable Shorty MD, T Javad Unavailable Shorty EPPS, T Javad Unavailable Shorty EPPS, T Javad Unavailable Shorty EPPS, T Javad Unavailable Shorty EPPS, T Javad Unavailable Shorty EPPS, T Javad Unavailable Shorty EPPS, T Javad Unavailable Shorty EPPS, T Javad Unavailable Shorty EPPS, T Javad Unavailable Shorty EPPS, T Javad Unavailable Shorty , T Javad Unavailable Shorty EPPS, T Javad Unavailable Shorty EPPS, T Javad Unavailable Shorty EPPS, T Javad Unavailable Shorty EPPS, T Javad Unavailable Shorty EPPS, T Javad Unavailable IRENE (SERGIO), Cherrie PALENCIA MD Unavailable Unavailab le IRENE (SERGIO), Cherrie PALENCIA MD Unavailable Unavailab le IRENE (SERGIO), Cherrie PALENCIA MD Unavailable Unavailab le IRENE (SERGIO), Cherrie PALENCIA MD Unavailable Unavailab le IRENE (SERGIO), Cherrie PALENCIA MD Unavailable Unavailab le IRENE (SERGIO), Cherrie PALENCIA MD Unavailable Unavailab le IRENE (SERGIO), Cherrie PALENCIA MD Unavailable Unavailab le IRENE (SERGIO), Cherrie PALENCIA MD Unavailable Unavailab le IRENE (SERGIO), Cherrie PALENCIA MD Unavailable Unavailab le IRENE (SERGIO), Cherrie PALENCIA MD Unavailable Unavailab le IRENE (SERGIO), Cherrie PALENCIA MD Unavailable Unavailab le IRENE (SERGIO), Cherrie PALENCIA MD Unavailable Unavailab le IRENE (SERGIO), Cherrie PALENCIA MD Unavailable Unavailab le IRENE (SERGIO), Cherrie PALENCIA MD Unavailable Unavailab le IRENE (SERGIO), Cherrie PALENCIA MD Unavailable Unavailab le IRENE (SERGIO), Cherrie PALENCIA MD Unavailable Unavailab le IRENE (SERGIO), Cherrie PALENCIA MD Unavailable Unavailab le IRENE (SERGIO), Cherrie PALENCIA MD Unavailable Unavailab le IRENE (SERGIO), Cherrie PALENCIA MD Unavailable Unavailab le IRENE (SERGIO), Cherrie PALENCIA MD Unavailable Unavailab le IRENE (SERGIO), Cherrie PALENCIA MD Unavailable Unavailab le IRENE (SERGIO), Cherrie PALENCIA MD Unavailable Unavailab le IRENE (SERGIO), Cherrie PALENCIA MD Unavailable Unavailab le IRENE (SERGIO), Cherrie PALENCIA MD Unavailable Unavailab le IRENE (SERGIO), Cherrie PALENCIA MD Unavailable Unavailab le IRENE (SERGIO), Cherrie PALENCIA MD Unavailable Unavailab le IRENE (SERGIO), Cherrie PALENCIA MD Unavailable Unavailab le IRENE (SERGIO), Cherrie PALENCIA MD Unavailable Unavailab le IRENE (SERGIO), Cherrie PALENCIA MD Unavailable Unavailab le IRENE (SERGIO), Cherrie PALENCIA MD Unavailable Unavailab le IRENE (SERGIO), Cherrie PALENCIA MD Unavailable Unavailab le IRENE (SERGIO), Cherrie PALENCIA MD Unavailable Unavailab le IRENE (SERGIO), Cherrie PALENCIA MD Unavailable Unavailab le IRENE (SERGIO), Cherrie PALENCIA MD Unavailable Unavailab le IRENE (SERGIO), Cherrie PALENCIA MD Unavailable Unavailab le IRENE (SERGIO), Cherrie PALENCIA MD Unavailable Unavailab le IRENE (SERGIO), Cherrie PALENCIA MD Unavailable Unavailab le IRENE (SERGIO), Cherrie PALENCIA MD Unavailable Unavailab le IRENE (SERGIO), Cherrie PALENCIA MD Unavailable Unavailab le IRENE (SERGIO), Cherrie PALENCIA MD Unavailable Unavailab le IRENE (SERGIO), Cherrie PALENCIA MD Unavailable Unavailab le IRENE (SERGIO), Cherrie PALENCIA MD Unavailable Unavailab le IRENE (SERGIO), Cherrie PALENCIA MD Unavailable Unavailab le IRENE (SERGIO), Cherrie PALENCIA MD Unavailable Unavailab le IRENE (SERGIO), Cherrie PALENCIA MD Unavailable Unavailab le IRENE (SERGIO), Cherrie PALENCIA MD Unavailable Unavailab le IRENE (SERGIO), Cherrie PALENCIA MD Unavailable Unavailab le IRENE (SERGIO), Cherrie PALENCIA MD Unavailable Unavailab le IRENE (SERGIO), Cherrie PALENCIA MD Unavailable Unavailab le IRENE (SERGIO), Cherrie PALENCIA MD Unavailable Unavailab le IRENE (SERGIO), Cherrie PALENCIA MD Unavailable Unavailab le IRENE (SERGIO), Cherrie PALENCIA MD Unavailable Unavailab le IRENE (SERGIO), Cherrie PALENCIA MD Unavailable Unavailab le IRENE (SERGIO), Cherrie PALENCIA MD Unavailable Unavailab le IRENE (SERGIO), Cherrie PALENCIA MD Unavailable Unavailab le IRENE (SERGIO), Cherrie PALENCIA MD Unavailable Unavailab le IRENE (SERGIO), Cherrie PALENCIA MD Unavailable Unavailab le IRENE (SERGIO), Cherrie PALENCIA MD Unavailable Unavailab le IRENE (SERGIO), Cherrie PALENCIA MD Unavailable Unavailab le IRENE (SERGIO), Cherrie PALENCIA MD Unavailable Unavailab le IRENE (SERGIO), Cherrie PALENCIA MD Unavailable Unavailab le IRENE (SERGIO), Cherrie PALENCIA MD Unavailable Unavailab le IRENE (SERGIO), Cherrie PALENCIA MD Unavailable Unavailab le IRENE (SERGIO), Cherrie PALENCIA MD Unavailable Unavailab le IRENE (SERGIO), Cherrie PALENCIA MD Unavailable Unavailab le IRENE (SERGIO), Cherrie PALENCIA MD Unavailable Unavailab le IRENE (SERGIO), Cherrie PALENCIA MD Unavailable Unavailab le IRENE (SERGIO), Cherrie PALENCIA MD Unavailable Unavailab le IRENE (SERGIO), Cherrie PALENCIA MD Unavailable Unavailab le IRENE (SERGIO), Cherrie PALENCIA MD Unavailable Unavailab le IRENE (SERGIO), Cherrie PALENCIA MD Unavailable Unavailab le IRENE (SERGIO), Cherrie PALENCIA MD Unavailable Unavailab le IRENE (SERGIO), Cherrie PALENCIA MD Unavailable Unavailab le IRENE (SERGIO), Cherrie PALENCIA MD Unavailable Unavailab le IRENE (SERGIO), Cherrie PALENCIA MD Unavailable Unavailab le IRENE (SERGIO), Cherrie PALENCIA MD Unavailable Unavailab le IRENE (SERGIO), Cherrie PALENCIA MD Unavailable Unavailab le IRENE (SERGIO), Cherrie PALENCIA MD Unavailable Unavailab le IRENE (SERGIO), Cherrie PALENCIA MD Unavailable Unavailab le IRENE (SERGIO), Cherrie PALENCIA MD Unavailable Unavailab le IRENE (SERGIO), Cherrie PALENCIA MD Unavailable Unavailab le IRENE (SERGIO), Cherrie PALENCIA MD Unavailable Unavailab le IRENE (SERGIO), Cherrie PALENCIA MD Unavailable Unavailab le IRENE (SERGIO), Cherrie PALENCIA MD Unavailable Unavailab le IRENE (SERGIO), Cherrie PALENCIA MD Unavailable Unavailab le IRENE (SERGIO), Cherrie PALENCIA MD Unavailable Unavailab le IRENE (SERGIO), Cherrie PALENCIA MD Unavailable Unavailab le SHORTY, T JAVAD Unavailable Unavailable Kaplan, L Yenny PA Unavailable Unavailable Kaplan, L Yenny PA Unavailable Unavailable Kaplan, L Yenny PA Unavailable Unavailable Kaplan, L Yenny PA Unavailable Unavailable Kaplan, L Yenny PA Unavailable Unavailable Kaplan, L Yenny PA Unavailable Unavailable Kaplan, L Yenny PA Unavailable Unavailable Kaplan, L Yenny PA Unavailable Unavailable Kaplan, L Yenny PA Unavailable Unavailable Kaplan, L Yenny PA Unavailable Unavailable Kaplan, L Yneny PA Unavailable Unavailable Kaplan, L Yenny PA Unavailable Unavailable Kaplan, L Yenny PA Unavailable Unavailable Kaplan, L Yenny PA Unavailable Unavailable Kaplan, L Yenny PA Unavailable Unavailable Kaplan, L Yenny PA Unavailable Unavailable Kaplan, L Yenny PA Unavailable Unavailable Kaplan, L Yenny PA Unavailable Unavailable Kaplan, L Yenny PA Unavailable Unavailable Kaplan, L Yenny PA Unavailable Unavailable Kaplan, L Yenny PA Unavailable Unavailable Kaplan, L Yenny PA Unavailable Unavailable Kaplan, L Yenny PA Unavailable Unavailable Kaplan, L Yenny PA Unavailable Unavailable Kaplan, L Yenny PA Unavailable Unavailable Kaplan, L Yenny PA Unavailable Unavailable Kaplan, L Yenny PA Unavailable Unavailable Kaplan, L Yenny PA Unavailable Unavailable Kaplan, L Yenny PA Unavailable Unavailable Kaplan, L Yenny PA Unavailable Unavailable Kaplan, L Yenny PA Unavailable Unavailable Kaplan, L Yenny PA Unavailable Unavailable Kaplan, L Yenny PA Unavailable Unavailable Kaplan, L Yenny PA Unavailable Unavailable Kapaln, L Yenny PA Unavailable Unavailable Kaplan, L Yenny PA Unavailable Unavailable Kaplan, L Yenny PA Unavailable Unavailable Kaplan, L Yenny PA Unavailable Unavailable Kaplan, L Yenny PA Unavailable Unavailable LESIA BECKMAN Unavailable Unavailable Desmond De La Torre MD Unavailable Unavailable Desmond De La Torre MD Unavailable Unavailable Desmond De La Torre MD Unavailable Unavailable Desmond De La Torre MD Unavailable Unavailable Desmond De La Torre MD Unavailable Unavailable Desmond De La Torre MD Unavailable Unavailable Desmond De La Torre MD Unavailable Unavailable Desmond De La Torre MD Unavailable Unavailable Desmond De La Torre MD Unavailable Unavailable Desmond De La Torre MD Unavailable Unavailable Desmond De La Torre MD Unavailable Unavailable Desmond De La Torre MD Unavailable Unavailable Desmond De La Torre MD Unavailable Unavailable Desmond De La Torre MD Unavailable Unavailable Desmond De La Torre MD Unavailable Unavailable Desmond De La Torre MD Unavailable Unavailable Desmond De La Torre MD Unavailable Unavailable Desmond De La Torre MD Unavailable Unavailable Desmond De La Torre MD Unavailable Unavailable Desmond De La Torre MD Unavailable Unavailable Desmond De La Torre MD Unavailable Unavailable Desmond De La Torre MD Unavailable Unavailable Desmond De La Torre MD Unavailable Unavailable Desmond De La Torre MD Unavailable Unavailable Desmond De La Torre MD Unavailable Unavailable Desmond De La Torre MD Unavailable Unavailable Desmond De La Torre MD Unavailable Unavailable Desmond De La Torre MD Unavailable Unavailable Desmond De La Torre MD Unavailable Unavailable Desmond De La Torre MD Unavailable Unavailable Desmond De La Torre MD Unavailable Unavailable Desmond De La Torre MD Unavailable Unavailable Desmond De La Torre MD Unavailable Unavailable Desmond De La Torre MD Unavailable Unavailable Desmond De La Torre MD Unavailable Unavailable Desmond De La Torre MD Unavailable Unavailable Desmond De La Torre MD Unavailable Unavailable Desmond De La Torre MD Unavailable Unavailable Desmond De La Torre MD Unavailable Unavailable Desmond De La Torre MD Unavailable Unavailable Desmond De La Torre MD Unavailable Unavailable Desmond De La Torre MD Unavailable Unavailable Desmond De La Torre MD Unavailable Unavailable Desmond De La Torre MD Unavailable Unavailable Desmond De La Torre MD Unavailable Unavailable Desmond De La Torre MD Unavailable Unavailable Desmond De La Torre MD Unavailable Unavailable Desmond De La Torre MD Unavailable Unavailable Desmond De La Torre MD Unavailable Unavailable Desmond De La Torre MD Unavailable Unavailable Desmond De La Torre MD Unavailable Unavailable Desmond De La Torre MD Unavailable Unavailable Desmond De La Torre MD Unavailable Unavailable Desmond De La Torre MD Unavailable Unavailable Desmond De La Torre MD Unavailable Unavailable Desmond De La Torre MD Unavailable Unavailable Desmond De La Torre MD Unavailable Unavailable Desmond De La Torre MD Unavailable Unavailable Desmond De La Torre MD Unavailable Unavailable Desmond De La Torre MD Unavailable Unavailable Desmond De La Torre MD Unavailable Unavailable Desmond De La Torre MD Unavailable Unavailable Desmond De La Torre MD Unavailable Unavailable Desmond De La Torre MD Unavailable Unavailable Desmond De La Torre MD Unavailable Unavailable Desmond De La Torre MD Unavailable Unavailable Desmond De La Torre MD Unavailable Unavailable Desmond De La Torre MD Unavailable Unavailable Desmond De La Torre MD Unavailable Unavailable Desmond De La Torre MD Unavailable Unavailable Desmond De La Torre MD Unavailable Unavailable Desmond De La Torre MD Unavailable Unavailable Desmond De La Torre MD Unavailable Unavailable Desmond De La Torre MD Unavailable Unavailable Desmond De La Torre MD Unavailable Unavailable Desmond De La Torre MD Unavailable Unavailable Desmond De La Torre MD Unavailable Unavailable Desmond De La Torre MD Unavailable Unavailable Desmond De La Torre MD Unavailable Unavailable Desmond De La Torre MD Unavailable Unavailable Desmond De La Torre MD Unavailable Unavailable Desmond De La Torre MD Unavailable Unavailable Desmond De La Torre MD Unavailable Unavailable Desmond De La Torre MD Unavailable Unavailable Desmond De La Torre MD Unavailable Unavailable Desmond De La Torre MD Unavailable Unavailable Desmond De La Torre MD Unavailable Unavailable Desmond De La Torre MD Unavailable Unavailable Desmond De La Torre MD Unavailable Unavailable Desmond De La Torre MD Unavailable Unavailable Desmond De La Torre MD Unavailable Unavailable Desmond De La Torre MD Unavailable Unavailable Desmond De La Torre MD Unavailable Unavailable Desmond De La Torre MD Unavailable Unavailable Desmond De La Torre MD Unavailable Unavailable Desmond De La Torre MD Unavailable Unavailable Desmond De La Torre MD Unavailable Unavailable Desmond De La Torre MD Unavailable Unavailable Desmond De La Torre MD Unavailable Unavailable Desmond De La Torre MD Unavailable Unavailable Desmond De La Torre MD Unavailable Unavailable De La TorreDesmond little MD Unavailable Unavailable De La TorreDesmond MD Unavailable Unavailable De La TorreDesmond MD Unavailable Unavailable De La TorreDesmond MD Unavailable Unavailable De La TorreDesmond MD Unavailable Unavailable De La TorreDesmond MD Unavailable Unavailable De La TorreDesmond MD Unavailable Unavailable De La TorreDesmond MD Unavailable Unavailable De La TorreDesmond MD Unavailable Unavailable De La TorreDesmond MD Unavailable Unavailable De La TorreDesmond MD Unavailable Unavailable De La Torre, Desmond Cervantes MD Unavailable Unavailable De La Torre, Desmond Cervantes MD Unavailable Unavailable De La Torre, Desmond Cevrantes MD Unavailable Unavailable De La TorreDesmond MD Unavailable Unavailable De La TorreeDsmond MD Unavailable Unavailable De La Torre, Desmond Cervantes MD Unavailable Unavailable De La TorreDesmond MD Unavailable Unavailable De La Torre, Desmond Cervantes MD Unavailable Unavailable De La Torre, Desmond Cervantes MD Unavailable Unavailable De La TorreDesmond MD Unavailable Unavailable De La Torre, Desmond Cervantes MD Unavailable Unavailable De La TorreDesmond MD Unavailable Unavailable De La Torre, Desmond Cervantes MD Unavailable Unavailable De La Torre, Desmond Cervantes MD Unavailable Unavailable De La Torre, Desmond Cervantes MD Unavailable Unavailable De La Torre, Desmond Cervantes MD Unavailable Unavailable De La Torre, Desmond Cervantes MD Unavailable Unavailable De La Torre, Desmond Cervantes MD Unavailable Unavailable De La TorreDesmond MD Unavailable Unavailable De La Torre, Desmond Cervantes MD Unavailable Unavailable De La Torre, Desmond Cervantes MD Unavailable Unavailable De La TorerDesmond MD Unavailable Unavailable De La TorreDesmond MD Unavailable Unavailable De La Torre, Desmond Cervantes MD Unavailable Unavailable De La TorreDesmond MD Unavailable Unavailable De La Torre, Desmond Cervantes MD Unavailable Unavailable De La TorreDesmond MD Unavailable Unavailable De La TorreDesmond MD Unavailable Unavailable De La Torre, Desmond Cervantes MD Unavailable Unavailable De La TorreDesmond MD Unavailable Unavailable De La TorreDesmond MD Unavailable Unavailable De La TorreDesmond MD Unavailable Unavailable De La TorreDesmond MD Unavailable Unavailable De La TorreDesmond MD Unavailable Unavailable De La TorreDesmond MD Unavailable Unavailable De La TorreDesmond MD Unavailable Unavailable Re-disclosure Warning The records that you are about to access may contain information from federally-assisted alcohol or drug abuse programs. If such information is present, then the following federally mandated warning applies: This information has been disclosed to you from records protected by federal confidentiality rules (42 CFR part 2). The federal rules prohibit you from making any further disclosure of this information unless further disclosure is expressly permitted by the written consent of the person to whom it pertains or as otherwise permitted by 42 CFR part 2. A general authorization for the release of medical or other information is NOT sufficient for this purpose. The Federal rules restrict any use of the information to criminally investigate or prosecute any alcohol or drug abuse patient.The records that you are about to access may contain highly sensitive health information, the redisclosure of which is protected by Article 27-F of the [facility] Public Health law. If you continue you may have access to information: Regarding HIV / AIDS; Provided by facilities licensed or operated by the [facility] Office of Mental Health; or Provided by the [facility] Office for People With Developmental Disabilities. If such information is present, then the following [facility] mandated warning applies: This information has been disclosed to you from confidential records which are protected by state law. State law prohibits you from making any further disclosure of this information without the specific written consent of the person to whom it pertains, or as otherwise permitted by law. Any unauthorized further disclosure in violation of state law may result in a fine or snf sentence or both. A general authorization for the release of medical or other information is NOT sufficient authorization for further disc losure. Family History Family Member Name Family Member Gender Family Member Status Date o f Status Description Data Source(s) Unknown Unknown Problem MED[facility] ([facility]) Unknown Male Problem MEDENT ([facility]) Encounters Encounter Providers Location Date Indications Data Source(s ) Outpatient Attender: Javad Oro MDAttender: JAVAD COBIAN 10/16/2021 12:00:00 AM [facility] Unknown [address] [facility] [place] [address] 04/12/2021 12:00:00 AM EDT eCW1 ([facility]) Unknown [address] [facility] [id number] 04/12/2021 12:00:00 AM EDT eCW1 ([facility]) Unknown [address] [facility] [place] [address] 04/05/2021 12:00:00 AM EDT eCW1 ([facility]) Unknown [address] [facility] [place] [address] 03/27/2021 12:00:00 AM EDT eCW1 ([facility]) Unknown [address] [facility] [place] [address] 01/29/2021 12:00:00 AM EDT eCW1 ([facility]) Outpatient Attender: Javad Oro MDA ttender: JAVAD OROReferrtommie: Billy De La Torre MD [id number] 12/19/2020 12:00:00 AM EDT Chronic maxillary sin usitis [facility] Chronic maxillary sinusitis Attender: TALHA VOSS) MDReferrer: Tia De La Torre MD 12/04/2020 08:21:06 PM EDT [facility] Outpatient Attender: Yenny RIDLEY [email or web address] 07:55:12 AM EDT - 11/17/2020 09:23:23 AM EDT [facility] [address] [facility] [place] [address] 11/16/2020 12:00:00 AM EDT eCW1 ([facility]) Attender: TALHA BONILLA (MITCHELL) MDReferrer: Tia De La Torre MD 10/10/2020 08:21:04 PM EDT [facility] [address] [facility] [place] [address] 10/05/2020 12:00:00 AM EDT eCW1 ([facility]) [place] [address] [facility] [place] [address] 10/05/2020 12:00:00 AM EDT eCW1 ([facility]) Outpatient Attender: JAVAD Pyleerrtommie: Billy De La Torre MD [id number] 08/16/2020 12:00:00 AM EST Allergic rhinitis, unspecified [facility] Allergic rhinitis, unspecified Outpatient Attender: JAVAD Mixon: Billy De La Torre MD [id number] 07/11/2020 12:00:00 AM EST Chronic frontal sinusitis [facility] Chronic frontal sinusitis [place] [address] [facility] [place] [address] 07/07/2020 12:00:00 AM EST eCW1 ([facility]) [place] [address] [facility] [place] [address] 07/06/2020 12:00:00 AM EST eCW1 ([facility]) Outpatient Attender: JAVAD OROReferrer: Billy De La Torre MD [id number] 06/09/2020 12:00:00 AM EST Chronic maxillary sinusitis [facility] Chronic maxillary sinusitis Outpatient Attender: HUGO Reneeer: JAVAD ORO [id number] 06/05/2020 12:00:00 AM EST - 06/06/2020 12:00:00 AM EST [facility] Outpatient Attender: JAVAD ORO [id number] 03/21/2020 12:00:00 A M EDT [facility] Outpatient Referrer: JAVAD ORO 03/21/2020 12:00 :00 AM EDT Chronic maxillary sinusitis [facility] Chronic maxillary sinusitis [place] [address] [facility] [place] [address] 03/21/2020 12:00:00 AM EDT eCW1 ([facility]) Immunizations Vaccine Date Status Description Data Source(s) COVID-19 dose #2 given elsewhere Unspecified 09/20/2020 12:0 1:00 PM EDT completed eCW1 ([facility]) COVID-19 dose #2 given elsewhere Unspecified 09/20/2020 12:0 1:00 PM EDT completed eCW1 ([facility]) COVID-19 dose #2 given elsewhere Unspecified 09/20/2020 12:0 1:00 PM EDT completed eCW1 ([facility]) COVID-19 dose #2 given elsewhere Unspecified 09/20/2020 12:0 1:00 PM EDT completed eCW1 ([facility]) COVID-19 dose #2 given elsewhere Unspecified 09/20/2020 12:0 1:00 PM EDT completed eCW1 ([facility]) COVID-19 dose #2 given elsewhere Unspecified 09/20/2020 12:0 1:00 PM EDT completed eCW1 ([facility]) COVID-19 dose #2 given elsewhere Unspecified 09/20/2020 12:0 1:00 PM EDT completed eCW1 ([facility]) COVID-19 dose #2 given elsewhere Unspecified 09/20/2020 12:0 1:00 PM EDT completed eCW1 ([facility]) COVID-19 VACCINE Pfizer 09/20/2020 12:00:00 AM EDT completed [facility] Vaccine Series Complete: YESThis Data wa s Submitted to [facility] Via [employer]. COVID-19 dose #1 given elsewhere Unspecified 08/30/2020 12:0 0:00 PM EST completed eCW1 ([facility]) COVID-19 dose #1 given elsewhere Unspecified 08/30/2020 12:0 0:00 PM EST completed eCW1 ([facility]) COVID-19 dose #1 given elsewhere Unspecified 08/30/2020 12:0 0:00 PM EST completed eCW1 ([facility]) COVID-19 dose #1 given elsewhere Unspecified 08/30/2020 12:0 0:00 PM EST completed eCW1 ([facility]) COVID-19 dose #1 given elsewhere Unspecified 08/30/2020 12:0 0:00 PM EST completed eCW1 ([facility]) COVID-19 dose #1 given elsewhere Unspecified 08/30/2020 12:0 0:00 PM EST completed eCW1 ([facility]) COVID-19 dose #1 given elsewhere Unspecified 08/30/2020 12:0 0:00 PM EST completed eCW1 ([facility]) COVID-19 dose #1 given elsewhere Unspecified 08/30/2020 12:0 0:00 PM EST completed eCW1 ([facility]) COVID-19 VACCINE Pfizer 08/30/2020 12:00:00 AM EST completed [facility] Vaccine Series Complete: NOThis Data was Submitted to [facility] Via [employer]. Medications Medication Brand Name Start Date Product Form Dose Route Admi nistrative Instructions Pharmacy Instructions Status Indications Reaction Description Data Source(s) 2.5 % 05/05/2021 12:00:00 AM EDT cream with perineal angelina licator 28 USE TWICE A DAY DIRECTED USE TWICE A DAY DIRECTED SOLD: 05/07/2021 [facility] Ramipril 5 MG Oral Capsule RAMIPRIL 04/12/2021 12:00:00 AM EDT capsul e 90 TAKE ONE CAPSULE BY MOUTH EVERY DAY TAKE ONE CAPSULE BY MOUTH EVERY DAY SOLD: 04/12/2021 [facility] 300 mg 04/05/2021 12:00:00 AM EDT tablet 90 TAKE ONE TABLET BY MOUTH EVERY DAY TAKE ONE TABLET BY MOUTH EVERY DAY SOLD: 04/07/2021 [facility] 150 mg 03/11/2021 12:00:00 AM EDT tablet 60 TAKE ONE TABLET BY MOUTH EVERY DAY TAKE ONE TABLET BY MOUTH EVERY DAY SOLD: 03/13/2021 [facility] 80 mg 01/18/2021 12:00:00 AM EDT tablet 90 TAKE ONE TABLET BY MOUTH EVERY DAY TAKE ONE TABLET BY MOUTH EVERY DAY SOLD: 04/19/2021 [facility] 80 mg 01/18/2021 12:00:00 AM EDT tablet 90 TAKE ONE TABLET BY MOUTH EVERY DAY TAKE ONE TABLET BY MOUTH EVERY DAY SOLD: 01/23/2021 [facility] 300 mg 01/03/2021 12:00:00 AM EDT tablet 90 TAKE ONE TABLET BY MOUTH EVERY DAY TAKE ONE TABLET BY MOUTH EVERY DAY SOLD: 01/05/2021 [facility] 137 mcg (0.1 %) 12/12/2020 12:00:00 AM EDT aerosol,spray 30 SPRAY TWO SPRAYS IN EACH NOSTRIL EVERY MORNING SPRAY TWO SPRAYS IN EACH NOSTRIL EVERY MORNING SOLD: 02/09/2021 [facility] 137 mcg (0.1 %) 12/12/2020 12:00:00 AM EDT aerosol,spray 30 SPRAY TWO SPRAYS IN EACH NOSTRIL EVERY MORNING SPRAY TWO SPRAYS IN EACH NOSTRIL EVERY MORNING SOLD: 05/09/2021 [facility] 137 mcg (0.1 %) 12/12/2020 12:00:00 AM EDT aerosol,spray 30 SPRAY TWO SPRAYS IN EACH NOSTRIL EVERY MORNING SPRAY TWO SPRAYS IN EACH NOSTRIL EVERY MORNING SOLD: 12/13/2020 [facility] SUPREP BOWEL PREP KIT 17.5-3.13-1.6 gram SODIUM, POTASSIUM,M AG SULFATES 12/04/2020 12:00:00 AM EDT [facility] 354 USE A S DIRECTED BY [facility] USE DIRECTED BY [facility] SOLD: 12/06/2020 [facility] 25 mg 11/17/2020 12:00:00 AM EDT tablet extended release 24 hr 90 TAKE ONE TABLET BY MOUTH EVERY DAY TAKE ONE TABLET BY MOUTH EVERY DAY SOLD: 03/24/2021 [facility] 24 HR metoprolol succinate 25 MG Extende d Release Oral Tablet metoprolol succinate (TOPROL-XL) 25 MG 24 hr tablet metoprolol succinate (TOPROL-XL) 25 MG 24 hr tablet 11/17/2020 12:00:00 AM EDT 25 mg Oral active Coronary angioplasty status Take 1 tablet (25 mg total) by mouth henny john [facility] Coronary angioplasty status 25 mg 11/17/2020 12:00:00 AM EDT tablet extended release 24 hr 90 TAKE ONE TABLET BY MOUTH EVERY DAY TAKE ONE TABLET BY MOUTH EVERY DAY SOLD: 11/19/2020 [facility] 50 mcg/actuation 11/16/2020 12:00:00 AM EDT spray,non-aeroso l 17 SPRAY TWO SPRAYS IN EACH NOSTRIL EVERY DAY SPRAY TWO SPRAYS IN EACH NOSTRIL EVERY DAY SOLD: 11/19/2020 [facility] 50 mcg/actuation 11/16/2020 12:00:00 AM EDT spray,non-aeroso l 17 SPRAY TWO SPRAYS IN EACH NOSTRIL EVERY DAY SPRAY TWO SPRAYS IN EACH NOSTRIL EVERY DAY SOLD: 02/09/2021 [facility] 0.6 mg 10/06/2020 12:00:00 AM EDT capsule 20 TAKE ONE CAPSULE BY MOUTH TWO TIMES A DAY TAKE ONE CAPSULE BY MOUTH TWO TIMES A DAY SOLD: 10/09/2020 [facility] Colchicine 0.6 MG Oral Capsule Colchicine 0.6 MG Oral Capsul e 10/06/2020 12:00:00 AM EDT active TAKE ONE CAPSULE BY MOUTH TWO TIMES A DAY [facility] 25 mg 10/04/2020 12:00:00 AM EDT suppository 15 INSERT ONE SUPPOSITORY RECTALLY THREE TIMES A DAY NEEDED INSERT ONE SUPPOSITORY RECTALLY THREE TI MES A DAY NEEDED SOLD: 10/09/2020 [facility] 300 mg 10/03/2020 12:00:00 AM EDT tablet 90 TAKE ONE TABLET BY MOUTH EVERY DAY TAKE ONE TABLET BY MOUTH EVERY DAY SOLD: 10/04/2020 [facility] Allopurinol 300 MG Oral Tablet Allopurinol 300 MG Oral Tablet (ZYLOPRIM) Allopurinol 300 MG Oral Tablet (ZYLOPRIM) 10/03/2020 12:00:00 AM EDT 300 mg Oral active Take 300 mg by mouth daily [facility] 80 mg 07/19/2020 12:00:00 AM EST tablet 90 TAKE ONE TABLET BY MOUTH EVERY DAY TAKE ONE TABLET BY MOUTH EVERY DAY SOLD: 07/21/2020 [facility] 80 mg 07/19/2020 12:00:00 AM EST tablet 90 TAKE ONE TABLET BY MOUTH EVERY DAY TAKE ONE TABLET BY MOUTH EVERY DAY SOLD: 10/18/2020 [facility] atorvastatin 80 MG Oral Tablet atorvastatin (LIPITOR) 80 MG tablet atorvastatin (LIPITOR) 80 MG tablet 07/18/2020 12:00:00 AM EST active TAKE ONE TABLET BY MOUTH EVERY DAY [facility] 875-125 mg 07/14/2020 12:00:00 AM EST tablet 20 TAKE ONE TABLET BY MOUTH TWICE A DAY FOR 10 DAYS TAKE ONE TABLET BY MOUTH TWICE A DAY FOR 10 DAYS SOLD: 07/15/2020 [facility] Ramipril 5 MG Oral Capsule RAMIPRIL 07/05/2020 12:00:00 AM EST capsul e 90 TAKE ONE CAPSULE BY MOUTH EVERY DAY TAKE ONE CAPSULE BY MOUTH EVERY DAY SOLD: 07/06/2020 [facility] Ramipril 5 MG Oral Capsule RAMIPRIL 07/05/2020 12:00:00 AM EST capsul e 90 TAKE ONE CAPSULE BY MOUTH EVERY DAY TAKE ONE CAPSULE BY MOUTH EVERY DAY SOLD: 01/05/2021 [facility] 50 mg 07/05/2020 12:00:00 AM EST tablet extended release 24 hr 90 TAKE ONE TABLET BY MOUTH EVERY DAY TAKE ONE TABLET BY MOUTH EVERY DAY SOLD: 07/06/2020 [facility] 50 mg 07/05/2020 12:00:00 AM EST tablet extended release 24 hr 90 TAKE ONE TABLET BY MOUTH EVERY DAY TAKE ONE TABLET BY MOUTH EVERY DAY SOLD: 10/18/2020 [facility] Ramipril 5 MG Oral Capsule RAMIPRIL 07/05/2020 12:00:00 AM EST capsul e 90 TAKE ONE CAPSULE BY MOUTH EVERY DAY TAKE ONE CAPSULE BY MOUTH EVERY DAY SOLD: 10/03/2020 [facility] 24 HR metoprolol succinate 50 MG Extende d Release Oral Tablet metoprolol succinate (TOPROL-XL) 50 MG 24 hr tablet metoprolol succinate (TOPROL-XL) 50 MG 24 hr tablet 07/04/2020 12:00:00 AM EST 50 mg Oral abort ed Take 1 tablet (50 mg total) by mouth daily [facility] Ramipril 5 MG Oral Capsule ramipril (ALTACE) 5 MG caps ule ramipril (ALTACE) 5 MG capsule 07/04/2020 12:00:00 AM EST active TAKE ONE CAPSULE BY MOUTH EVERY DAY [facility] 24 HR metoprolol succinate 50 MG Extende d Release Oral Tablet metoprolol succinate (TOPROL-XL) 50 MG 24 hr tablet metoprolol succinate (TOPROL-XL) 50 MG 24 hr tablet 07/04/2020 12:00:00 AM EST abort ed TAKE ONE TABLET BY MOUTH EVERY DAY [facility] 20 mg 06/28/2020 12:00:00 AM EST capsule,delayed release (DR/EC) 180 TAKE ONE CAPSULE BY MOUTH TWICE A DAY NEEDED TAKE ONE CAPSULE BY MOUTH TWICE A DAY NEEDED SOLD: 12/25/2020 [facility] 20 mg 06/28/2020 12:00:00 AM EST capsule,delayed release (DR/EC) 180 TAKE ONE CAPSULE BY MOUTH TWICE A DAY NEEDED TAKE ONE CAPSULE BY MOUTH TWICE A DAY NEEDED SOLD: 07/03/2020 [facility] 5 mg 06/08/2020 12:00:00 AM EST tablet 4 TAKE 1-2 TABLETS BY MOUTH 1 HOUR BEFORE PROCEDURE MAX=2TABS/DAY TAKE 1-2 TABLETS BY MOUTH 1 HOUR BEFORE PROCEDURE MAX=2TABS/DAY SOLD: 06/08/2020 [facility] Diazepam 5 MG Oral Tablet diazePAM 5 MG Oral Tablet (V alium) diazePAM 5 MG Oral Tablet (Valium) 06/08/2020 12:00:00 AM EST ac tive Take 1-2 an hour before procedure [facility] 5-325 mg 06/07/2020 12:00:00 AM EST tablet 12 TAKE ONE TABLET BY MOUTH EVERY 8 HOURS NEEDED FOR PAIN FOR UP TO 3 DAYS MAX=3TABS/DAY TAKE ONE TABLET BY MOUTH EVERY 8 HOURS NEEDED FOR PAIN FOR UP TO 3 DAYS MAX=3TABS/DAY SOLD: 06/08/2020 [facility] Amoxicillin 875 MG / Clavulanate 125 MG Oral Tablet Amoxicillin-Pot Clavulanate 875-125 MG Oral Tablet Amoxicillin-Pot Clavulanate 875-125 MG Oral Tablet 06/07/2020 12:00:00 AM EST 1 {tbl} Oral active Take 1 tablet by mouth Two Times Daily for 10 days [facility] Acetaminophen 325 MG / Hydrocodone Lionel trate 5 MG Oral Tablet HYDROcodone- Acetaminophen 5-325 MG Oral Tablet (LORTAB) HYDROcodone-Acetaminophen 5-325 MG Oral Tablet (LORTAB) 06/07/2020 12:00:00 AM EST 1 {tbl} Oral active Take 1 tablet by mouth every 8 (eight) hours as needed for Pain for up to 3 days, Max Daily Dose: 3 tablets [facility] 875-125 mg 06/07/2020 12:00:00 AM EST tablet 20 TAKE ONE TABLET BY MOUTH TWICE A DAY FOR 10 DAYS TAKE ONE TABLET BY MOUTH TWICE A DAY FOR 10 DAYS SOLD: 06/08/2020 [facility] Ramipril 5 MG Oral Capsule RAMIPRIL 04/06/2020 12:00:00 AM EDT capsul e 90 TAKE ONE CAPSULE BY MOUTH EVERY DAY TAKE ONE CAPSULE BY MOUTH EVERY DAY SOLD: 04/07/2020 [facility] 300 mg 04/05/2020 12:00:00 AM EDT tablet 90 TAKE ONE TABLET BY MOUTH EVERY DAY TAKE ONE TABLET BY MOUTH EVERY DAY SOLD: 07/05/2020 [facility] 300 mg 04/05/2020 12:00:00 AM EDT tablet 90 TAKE ONE TABLET BY MOUTH EVERY DAY TAKE ONE TABLET BY MOUTH EVERY DAY SOLD: 04/07/2020 [facility] 10 mg 04/01/2020 12:00:00 AM EDT tablet 30 TAKE ONE TABLET BY MOUTH EVERY DAY TAKE ONE TABLET BY MOUTH EVERY DAY SOLD: 04/05/2020 [facility] montelukast 10 MG Oral Tablet MONTELUKAST SODIUM 04/01/2020 12:0 0:00 AM EDT tablet 30 TAKE ONE TABLET BY MOUTH EVERY D AY TAKE ONE TABLET BY MOUTH EVERY DAY SOLD: 04/05/2020 [facility] cetirizine hydrochloride 10 MG Oral Tablet Cetirizine HCl 10 MG Cetirizine HCl 10 MG 03/31/2020 12:00:00 AM EDT 1.0 {tablet} suspe nded Cetirizine HCl 10 MG [facility] cetirizine hydrochloride 10 MG Oral Tablet Cetirizine HCl 10 MG Cetirizine HCl 10 MG 03/31/2020 12:00:00 AM EDT 1.0 {tablet} activ e Cetirizine HCl 10 MG eCW1 ([facility]) cetirizine hydrochloride 10 MG Oral Tablet Cetirizine HCl 10 MG Cetirizine HCl 10 MG 03/31/2020 12:00:00 AM EDT 1.0 {tablet} suspe nded Cetirizine HCl 10 MG eCW1 ([facility]) cetirizine hydrochloride 10 MG Oral Tablet Cetirizine HCl 10 MG Cetirizine HCl 10 MG 03/31/2020 12:00:00 AM EDT 1.0 {tablet} activ e Cetirizine HCl 10 MG eCW1 ([facility]) cetirizine hydrochloride 10 MG Oral Tablet Cetirizine HCl 10 MG Cetirizine HCl 10 MG 03/31/2020 12:00:00 AM EDT 1.0 {tablet} activ e Cetirizine HCl 10 MG eCW1 ([facility]) 24 HR metoprolol succinate 50 MG Extende d Release Oral Tablet Metoprolol Succinate ER 50 MG Oral Tablet Extended Release 24 Hour (TOPROL-XL) Metoprolol Succinate ER 50 MG Oral Tablet Extended Release 24 Hour (TOPROL-XL) 03/14/2020 12:00:00 AM EDT 50 mg Oral aborted Take 50 mg by mouth daily [facility] atorvastatin 80 MG Oral Tablet ATORVASTATIN CALCIUM 01/18/2020 1 2:00:00 AM EDT tablet 90 TAKE ONE TABLET BY MOUTH EVERY D AY TAKE ONE TABLET BY MOUTH EVERY DAY SOLD: 04/20/2020 [facility] cetirizine hydrochloride 10 MG Oral Tablet cetirizine (ZYRTEC) 10 MG tablet cetirizine (ZYRTEC) 10 MG tablet 11/17/2019 12:00:00 AM EDT 10 mg Oral aborted Take 10 mg by mouth daily [facility] Azelastine HCl 137 MCG/SPRAY SOLN 37915-674-37 06/07/2019 12:00:00 AM EST aborted [facility] 137 mcg (0.1 %) 06/07/2019 12:00:00 AM EST aerosol,spray 30 SPRAY TWO SPRAYS IN EACH NOSTRIL EVERY MORNING SPRAY TWO SPRAYS IN EACH NOSTRIL EVERY MORNING SOLD: 05/10/2020 [facility] Loratadine 10 MG Oral Tablet loratadine (CLARITIN) 10 MG tablet loratadine (CLARITIN) 10 MG tablet 07/09/2018 12:00:00 AM EST aborted CLARITIN 10 MG TABS [facility] Ergocalciferol 400 UNT Oral Tablet Ergocalciferol 10 M CG (400 UNIT) TABS Ergocalciferol 10 MCG (400 UNIT) TABS 12/02/2016 12:00:00 AM EDT aborted VITAMIN D2 TABS [facility] fluticasone (FLONASE) 50 MCG/ACT nasal spray 6501-9784-86 12/25/2014 12:00:00 AM EDT aborted [facility] Omeprazole 20 MG Delayed Release Oral Ta blet Omeprazole Magnesium 20 MG Oral Tablet Delayed Release (PRILOSEC OTC) Omeprazole Magnesium 20 MG Oral Tablet Delayed Release (PRILOSEC OTC) 07/25/2011 12:00:00 AM EST 20 mg Or al aborted Take 20 mg by mouth [facility] 60 ACTUAT formoterol fumarate 0.005 MG/A CTUAT / mometasone furoate 0.1 MG/ACTUAT Metered Dose Inhaler Mometasone Furo-Formoterol Fum 100-5 MCG/ACT Inhalation Aerosol (DULERA) Mometasone Furo-Formoterol Fum 100-5 MCG /ACT Inhalation Aerosol (DULERA) 2 {puff} Inhalation aborted Inhale 2 puffs into the lungs [facility] Insurance Providers Payer name Policy type / Coverage type Policy ID Covered libertarian ID Covered libertarian's relationship to brown Policy Brown Plan Information ANGELO [facility] Part B [id number] Self [id number] EXCELLUS H [id number] Self [id number] EXCELLUS H [id number] Self [id number] BS [place] [employer] [id number] Self [id number] Blue Cross Blue Shield P [id number] SELF [id number] [employer] HMO PPO POS [id number] EXCELLUS H [id number] Self [id number] EXCELLUS H [id number] Self [id number] EXCELLUS BCBS [id number] Margaret YND [id number] EXCELLUS BCBS [id number] mLEDI-Commercial [id number] [employer] [id number] ANSI-Commercial [id number] [employer] [id number] ANSI-Commercial [id number] [employer] [id number] ANSI-Commercial [id number] ANSI-Commercial [id number] ANSI-Commercial [id number] ANSI-Commercial [id number] [place]BS [place] [id number] S YND [id number] [place] WATN PPO 302/307 [id number] SP [id number] EXCELLUS BCBS P [id number] S VYS [id number] [place] PPO 302/307 [id number] SP [id number] [place] PPO 302/307 [id number] SP [id number] SELF PAY ONLY [id number] SP [id number] [place]BS [place] WAT[place] PPO 302/307 [id number] SP [id number] [place] PPO 302/307 [id number] SP [id number] [employer] BCBS Health Maintenance Organization (HMO) [id number] Self [id number] BCBS .[id number] Blue Cross/Bl ue Shield .[id number] ANSI-Commercial [id number] ANSI-Commercial [id number] ANSI-Commercial [id number] Problems, Conditions, and Diagnoses Code Display Name Description Problem Type Effective Dates Data Source(s) Z98.61 Coronary angioplasty status Coronary angioplasty statu s Diagnosis 11/17/2020 07:55:12 AM EDT [facility] G47.33 Obstructive sleep apnea (adult) (pediatr ic) Obstructive sleep apnea (adult) (pediatr Diagnosis 11/17/2020 07:55:12 AM EDT [facility] E78.00 Pure hypercholesterolemia, unspecified P ure hypercholesterolemia, unspecified Diagnosis 11/17/2020 07:55:12 AM EDT [facility] G47.33 Obstructive sleep apnea (adult) (pediatr ic) Obstructive sleep apnea (adult) (pediatric) Diagnosis 08/15/2020 04:09:13 PM [facility] Z95.5 [id number] S/P coronary artery stent placement Probl em 11/16/2020 12:00:00 AM EDT [facility]CW[facility]) E78.00 [id number] Hypercholesterolemia Problem 11/16/2020 12:0 0:00 AM EDT eCW1 ([facility]) I25.2 [id number] History of anterior wall myocardial infar ction Problem 11/16/2020 12:00:00 AM EDT eCW1 ([facility]) Z00.00 [id number] Encounter for genera l adult medical examination without abnormal findings Problem 11/16/2020 12:00:00 AM EDT eCW1 ([facility]) G47.33 [id number] BRAIN (obstructive sleep apnea) Problem 11/16/2020 12:00:00 AM EDT eCW1 ([facility]) Surgeries/Procedures Procedure Description Date Indications Data Source(s) ECG ROUTINE ECG W/LEAST 12 LDS W/I&R <td>POCT AMB EKG</td><td>Routine</td><td>11/17/2020 9:11 AM EDT</td><td> Coronary angioplasty status</td><td> </td> 11/17/2020 09:11:00 AM EDT Coronary angioplasty status [facility] Coronary angioplasty status CT MAXILLOFACIAL W/O CONTRAST MATERIAL <td>CT MAXILLOF ACIAL WITHOUT CONTRAST [id number]</td><td>Routine</td><td>03/21/2020 9:10 AM EDT</td><td> Chronic maxillary sinusitis Chronic ethmoidal sinusitis Chronic allergic rhinitis Chronic frontal sinusitis</td><td> </td> 03/21/2020 09:10:11 AM EDT Chronic frontal sinusitisChronic allergi c rhinitisChronic ethmoidal sinusitisChronic maxillary sinusitis [facility] Chronic frontal sinusitis Chronic allergic rhinitis Chronic ethmoidal sinusitis Chronic maxillary sinusitis Results ID Date Data Source [id number] 01/18/2021 08:45:00 AM EDT [facility] Name Value Range Interpretation Code Description Data Mahogany rce(s) Supporting Document(s) [facility] VMUSUd0lYuCUJpTiMASfBpvJWDzzBRngBHZdN1Y0LXrdQj4NFHfqnfWfNZDxAa7+HQClOS0ygy0qLZCs gMy [file] ii19fmkClklH2GHT69Pg6R3+SZ/hq4vyyD+inmma+2Sm1uhuAKfGlWnPkNL9+1u/wiCKJ32fNY+Driver Examiner+o [file] 5+F1+VU272Q4I++y3GSJ50ya+Ea6pChJ3XJb7c/B1G9U+AP72f+3ew/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+0RepMPHozQC19H/4Prr+Fk [file] dgawHyJ45EuiJIWF0DJ6oZHiTNI/Amh/aUZ0sb62KUn+[place]+sYeR66kxUzONiyj+KVlo5vTxwDI7EFtO 2Cn2UpjUnc/3+tyLiE7udcu67FD7bm2yAanDJkeHTpbmqfpz3phcLDqufzQtkEZH/clD0+Ne2DtvRs6p OWlPvky5C7Fx3r2ZQ8OJ/aFFAh0iI4mP798c5EORNI AIcUu4zMhg5BIHfUPIob4ICwo8dwwZs85YLFGEg43rGeppXZlx3xbATe0IWvxRg6WCYJHYcwj9GXojAg 1gzg/gws7yPAIQGu5cSm4MSn3YyOkItPW1pH37vaAItoll9MLIrds1BekKHQGsndutdVGJ2XgyOfyT1t amogl6RuADUt+YNnpG2k+Zb1oTZahJqWIOfsmcwx2W uDah8boQPv6poeh1r10ouD8BDqD3+OabrRiX/0LjGhWUc3j/xexek15Qyn1sERzGpbyNqIsNvwytbMRh nUHzAyZGWLekz99MJT9jimYD8zgGu1Emm76UiJOTlBQHRNia+Kxspm5cWzcmR7A5gSDB1VFBBgcei20F ryY+Gj2XWZu9c4yn569nib47bisheKYAKpL7enU9B5 CuqxleVfExxcgovTdzOWINErW/FVa5c6uvou1Ez3682dJdUZ4BMJFSc+2uqiC0VXdNdPsCx8wtNlTubn SNny6lJKt9h2lg/5UzGhCEVixshNkq866DeBT3BDjmvvhJ97gBmoyRTEhDwlPdXsUiDbOimMbS95SCR3 8/89rFzteuLvTveUxIu9N/Fnrm9b6oGzIIr4MZcpmh csv6gEXWEqGQo6YvqqNwaJXQU4FboOnQzBU/ZSh+Jarrod+LXwBb+9LrgCWgAEmQZM3Yxez5rDI3Cc5cNVnA [file] VTjQv5BUGNQNTi8LcL2NyZFrOROPvybJhbIXnrRWh7NRyqxtJOqlS7egFaEFKR9wPqS3RCR158fI+vocational counselor [file] YZz1V+sFATVd/z3rL9zf49YEFPZiNJJPTnxwr8ZODP Hm8futvdfqLsKBjgD5cZcXuVnAowLzXA4M0DT9yzhT3Qml2hfvuB4sVLF7A5Aut6m3qdnhByt+sVzFQ2 9RYuwKgX1kKaKJS9TpqDIZD65Q2PfzsoBzCS0Gt8pZZ9kZMTeWL3aaRmjczol73fhv6f/fwXUyugUMBb WbXje6NJ/8cECvvTvJVW8Olh0ZdYaGLvr2ac0db5NT heEkyD7/0gyYtn66CcY1gmKSjmjfPiqTmH3leQThm6d1K0swYSjkKiq/4wklyTxDfMA1waoWp9Q1gHO8 iSsL6YLb/PjoMtYG6Hie/XtGIbhGKHk7LZkkUOYRdCfQH/Lk/t8aIQu4KeEETF4CiqFMu+Kr4NOClXv+ zHw3PxntV9513uKyODwzZgvFRVIGUDMRp2uVYl/TKf Sc6RDbvx4MPbSBo/e9n04FB1yCwnyNAmjp4H+2lywbOhYHkcubg6dZq2LGW3eor2eJaWY6y5etg8vcy2 8txvbYHrl2TahcL5w5UO5NwpLcvwQuYGrtnG+H8U4Db3vpb2yQC1lh7lDc4k6y1qDG9VNC7hhe2wYfUL kTHWh/EiM/4cBCq+ZIoYyIE0lhVlxRw55EwsjzZldX bRmwkFN4XR2PUGWNlQPsfFG7EGOX9GD4v3Gyig45xyx+0cxB5kLjsiPDC+Ov8N+5l7guRJ3VYIhyzSX1 k36CWBRFbd4lgZrY2UOcik6jRKSc/iaL2HbChLaG273/viaqZ7x+Cx3SsQSk4ahgKH2f4qt/JHg01f72 BEDXXlJLdfakcerNsuRRYpBXROiGJPywKGN7qHCqbY Fy/hag3x4+OqchOugDkZNIPhCvlHFimkVHIMw+I1slK+hiHujtmMozbhK+8lbfu+veE0/Jose Raul/g3aSnTA [file] logistics planning engineer+CuBW8N3AS+e0kAX6hh6wtsqFPg6EQ4+IFWMukQ [file] Анна/yHWHSXNju/1WSIK6+4opTl2zk9VMVkdkJ9Jz5A [file] c33ljbUgsX97jO3cP2St8iLDpuRs8kQUUMKF0N+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+Rb1kYD3UeWsFhkNE2fKhBb8hDLo784GSbG8TKm Kg7SJxEObM5l3SCB1lrazkXaRHMkZXhJS6kFnKf8jg a7j69AUgEaAkZL+6pXF9lpYKZPTwDzDBPPbnsxAKEhyxl7RyVJz3NDvD6ZF/p222Acnx45mKl9DtHKss KaXIchjg9WKwMASvDeUS0f1bEfT2b06uezIZXCJQhuUz4oDA5hpq0nkiAN6Lfow4P4N82p+dme4Ydddb 7RqPhmWx79ABX+ZI1a1MiypTbUwMsMQXUp2yDbMBeU Kpbw1g/yh65zMXQsFSVeJ0I6YhVaP7y+rGaH3Daoanu+RyVX+md3zmYnFiTsYP1UplcMPRRuJZc4KRP6 CpD8BKtesn8YauSsne4zfbPDgDu3p9oVJDa4Z9m9v34cw2PPPZJHYwzo+35XTlyCA6mOCOgmd6QEFyxy KGjErcphUPUJZghgEkeVojZOIvP1E+MDd8ysmp6fZB Jm3e9w2ce/g+ci1jg0VzlkDtj7xll+Q986Y6x4kzDG3cgBDJ+hEwvLAhdotFdQ+AZEXCZ/fuMjydV2Ek EF6kJVaTnCpxTCdgI6WOvawDNtt807oxFI4xmFp53PF3h3zjGqfSQJTLeYMUoYB+qTsxZDxe+L7wluGT /fEOTybhJASyDGrs5GSG7fuGNuY85ZD373tOw1xEf9 WnVYjjkBd8sXynVxaOD0+UV+Da9HwLxvBsSQcjLR+4XEj+ZByrXkXq7VXFwz42qoaZxVKcDpJ4p5HoeN awoo7WJCA2lQVtPqCgknjVd6de7xW0LYMXo2ZY1cUwiH2tM4rQI1DrfC4W8osCIbHg+rhb3iHtq4Sbq4 RO4vRI6msO7KIz8tJ0Ik6soCJ4crZPbMrDDDW0M0eZ C95OSZRKLhrQx4QM0N0l5oGwhWqLxQPeEzO7wJ33ve+Bong/x8ZbegjnBhYYE38I8y9cPB2NE1QwTQOuf [file] ln+3pChXkFKAAfABcqwy2kv85D4wglsEbsbrHd7qlisidL3EPHfhQVsm51F1fkdhJckt/Bear+6ZSK8CM uEDdTpHwjjt4qdCtcYcjI6gTAVZG5oY8xu+y/2iTLf+ATTjvVitHmlZhhiLR75B+GHwpFe70WFWm1LfN js5MwLEuk7nowlynYT+HC09qysa3tFJ/7v7GRkve7G Isjmxj9qWJxKDXXL7IOxC8d8y/++5zsMDMz/taheF/0uLBIe2K8CWK6jz8GbJGCfBQWcVS9hvm2eIqWr JY5pmx19BI4MPR6lwTowZcF+PaF0ydKcrX3QdOa6GMInTOQkIBn9JsUhCLLuJ62ZM5efWmYsRG8QBX8C YZ4nx9QaQKGmJDLaPN8umx3rKmMeQU3usu57OK0HlI l2EMVaT2RxRLCpGTLnh6YaS7szjzs0rNE1XJ0JMLLwTDADIkK3ZwCGCQDOLYfbBQWCFwF6ZFCaEcXJTP EKXdLPXqZ9FPG5VPJ1LuNoN8SKPMYYZ3PKYNbSJJHuBNARYjFKAKQ+CE1Wj253NRGdDUWBO8iaTo9pHb OeWBKpG1m1VEDnIP1JsYXfOA7KFuWhD3npPgBfFXDp XT4+z8LhWQObYVg59sHuCMGgBLHMzwdv7xMLcxEIlZEq8tUNBO12T8PBGbbHm3Xxz/6eZViWALH2Uxdo YoMgwk2GTEdMZ9uAMfIvTMU5ojCwqY7AWI0tk0IfQV3Az4ZqglX2yeXpSOy8UIT8QCQGMaMhNX6Q ID Date Data Source [id number] 12/19/2020 02:02:04 PM EDT [facility] Name Value Range Interpretation Code Description Data Mahogany rce(s) Supporting Document(s) Progress Note [facility] MEWULm1jQkJSFuYo68/IJGopPUXlw7MbHIsrQSa6WFfnQNImR7DeNNI6yA0lOTD8TFdBQeKmFjNbDmOm lbm [file] RkPyYBBvWyqlKk1dOAKDAb0+DJyvtROlpYgaYWDBRqTdUZVdYIgeNORZPk4K ID Date Data Source [id number] 10/10/2020 07:30:00 AM EDT [facility] Name Value Range Interpretation Code Description Data Mahogany rce(s) Supporting Document(s) Follow Up [facility] WWXDBb6fWqKUMdCyXECrUleXITvhVFvnJGOdQ9A2PLonIh7LNKvcxeFvOKIaYi7+DKFmQN1meb3zTGNo gMy [file] YyTkx/wnUFgx4bbFJr/i1zSSXe0FCzdOHlRjH956Z7NhjG81G7pqqv/FMKK9vvvrkoIYBQBBIbXnq/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 [file] principal programmer+XYfWh90nB1CAltp5bi1bqRzCxVF5YJGjw+5U3jtUj4x4u1od/K5HLl7EL6gxJ2VHVUMlM/bOgULw [file] 9MlNIxO9QsNHRd2ED00uvWqBlm/A3np4ANCGIF+Sofía [file] eY1Mb2eir3eQ6/ve6WUVVZAtvhtn3XsceKhl9q7cO48YPL0lPj7VWdDHJBsI0zhm4LxeNh4lSvkP/[place] [file] 2Yfti3XSbmn4+wUB8f3kWnp/Igmx3wmKbZtM4o0+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 [file] rsycZsZpJYoC8Ayzmj+IWWBkgcakWSaDCwuuweJ2x1 qb1llKNmq5671Fpco5zk077pvhROr8VsVqnB1xNXV3qxJzEifTwk4xUs2ywGfGWSCdfEuQKGmtg5cwIA lCEqSYmMBKn2HrNOaUUYhvYJL8wAN9jvKaqvb4sgF9QwTnbnmtPq3rQGbD9ceze1CZkQuR0a3h7fa+2Q 5QrtR3ARLRcPXyC0I2Dd4/LUfzr+5UNXxtpZxCy4r6 cxys5ixYFbM5UqQOvV5oupEVs5sZYRmr0am9bfAyB/Gg7hZyBmubOpNpXlqIU2BmcimaKa5NPzvcNDzQ 70JYT4WybD3YUMVzJiFmeUiBLjjf9B1ghzGXrme95aPYBcjm5hZHSK/kb2mFAsOKgs2OAXqOz25UMkCy GMuPYiQjeX3eyHoh9q+/3igTyM/u52Wp4T7LXKe079 zkqxEz6r7F4Noe1ipstxK0B07TT7YYGbFbTXqgXWayjQYtNO6dT4stlQEMBiAW+2hHo5qiQBduj0qNiS pedKC85fRT7lU5t5FcwoeuNBQ/s8/TvAEdaNGL8rUmkLi7Ea0YWW6JBaNMX9WEx5nDVq0AWkOT2x1/+N //6L0Ie4EzCP7u0UPF44jqJipPki6EkNxbi1rAVzG9 E0VhZ2xd3PKmsZ/Gahb0dTAf4RG5VKaO8ztFghZfmh/ZgLRgUNeJJTWfh4T6DVnI2HPWKhg17TTBtv9C g6mhHvKeR5/fen5o/a7i10TeNxC6gmayUC4fyGAirWJJ/dILOXJODlWKk/g7yJwW9cQoi5JPQQAQwACj zYk5Mcn++/JXfh8/nN4K47cPhomrXPqsggBZpm [file] ann marie+WsxcjNcQzY1eqsT48SnYWayBIYI6aF9IVNtSnZ [file] r4ULR2CGCVjdox+diamante+8a8ay/UzlT3GphPIFSYrihW6FMHTct6dXb+Gu+O9TFOgcPlenqSGBNgifXnUfI SpWgx1mlons8X/NbUBzsTXP2SoEeRdjvlbIH8DftDWs8uPcHgaMN85bM4SJPhhERkMxpesNNZg9ZMJ2Q rxusrSv97CZQv1ORmGilObHJ1lB5nNutksv/CVqsxP 6e9byLFiy9Lcg4kDURvtc2lFv2ZRYx3G74zr/d00j0FQjoQVZpsgk4SAFm/JiabJ/zRqb6xIj2F1t/WX 5u44u6PUWnVlAD7+BghEHcQXexqKVxUKFri/wTne7HLc12K4TCA5VMrjE4WhrW4XqHJPHZRucTOUmcNr HU7G5U+h1+ok6LRqAZmM10hdY+40A6Sq4+L58ooxCc 2Emct+kOyD8jyHna9EpdYW9GkAIDLGO+ruglTOu8k1DiO4hIUGRBb2W9XiihPe6tfBvkNiLNgvHidsHR J80ot8VKf7vvVsIWh6NkfaeJF2TG3AqWq9Ach5rojDmWjUiYImm4LDjzsjls3ZkItov55n39Bgff8qKr f2fNfBHs7h6G9v8pgQ5+ktbmLcmmGnW/AQgjefVMFm yuckv2x1wSOjcz3bVenIj5B6WOPP0O5EzEfm5+usx9NNgHE+uJ1eitEsKaRbpDDPs4iMKQZiLqTJSy5g 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+tanWM8h4H2oV1uMqpmzDjaXJOFv2k+LuL65uShAH2oEIqcH7aYPHbYz73n29Jo+ZPbQ67FfMIF71X [file] SD1b4HNFQjRyVoGWJ6CS+55I+90FUe9hR07/Hg40BRm1ZO2hUzIHeXA6xYpZKhTCzZeZ+Luis A/OB0xvzx [file] 61GImAIZecOQ2O9G0abq7szQuBa7r8YisT0/luis a+9w [file] dv1NCgNkxAGMcAvF2ofBCrO5IolHArLuvVfRSwcy+Sarah Beth+WmzzcbGiuphLA7aV9010cwR0Va9lyD7mv5 [file] CLINICAL PHARMACY TECHNICIAN/BGIGax3VpjZi9BtB8hFbN3IdPpIK6pi9rwMgV2J [file] 2BDO+loss prevention [file] fzVR1N1g27Sl2Nh/fKzaNLEf3ZrXSeHyKYK6wQ577S/Service Car Operator+MuFtX+kkQWHtqFyWt2ti/bh1E3yhfnKnTb [file] Luis A+/kYRLLK04sqyRXe87s+d3zTxRiPRM+SmYDNcebMsUQFrrvQ/5Vn/6dYfYk7ySpRq4hI9WD9Yjdsc klJP6jn22R8x2RbF06GRT91B2QEnrz/3pK0scOjp5Yy7IMfAPbxBTfvqWmXEXetmwTZBkvrtBOHOVtlG LMpFvjLcim/Jkc+sqeDfnoLLezM8C9e8v+F/jXSW75 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/P7+3LrP0mUb5IlTgPWX1rq8yk3kQy5K0biw2M8nmpK7mjCke9FI0ycUXcHUHz97zZD7/mZpsrZuRE 4d/ZiTOZsih1TADjaCUMyHwswDf4o0PugJ9Q1E9orxvgZ5dajYra27xlA/+xR50iYKRL5we7ZzkDiW [file] 1M39uAukkvkj8V9NgxpTy1BPgFnWPF/student specialist/FmSxwvMXlRSFIuAY+LGthx+hJx9sFiyMo+Kimq29cwz0t [file] Ángel/D5Z1oeiWgfbfNGdJmFQRhqYElsXCBBcGYdqiFM1bZq1/AOZETUyF2IRRn9M4sKKhf7YX2wSt3+J4 [file] AEigi1lhEpMc7U7/vZ+[employer] portal developer/MG3a5NdOc+L/q+Hp2BX [file] on58BqyvcCBjh2gT7mTwTlKnCkR8OlvUHVlXJEYVsUg0/wXyXeqxO/PTSimeJJSil9stQaAZA9Hn/warehouse administrative assistant [file] tgY/film rental clerk+yH7FwzmjDqiZLxJhTkseXuDAgGaqDFQXOIRijEjYxSFpgeBItXFuoy4xtQ2Tuw5ItSq9EsY2 [file] 5WIM9hn8CaYN8Ik1MxclA2iuUcIHbeHIP2SoL1VPfyPPDJYp== ID Date Data Source [id number] 08/16/2020 09:44:35 AM [facility] Name Value Range Interpretation Code Description Data Mahogany rce(s) Supporting Document(s) Progress Note [facility] LIKCPl9yWpSTZfEf82/TCKnxJSZql1PeXHakCDb1ZMzyIQMoX3AzPEQ8cB2sRJM3ODmRLtLjEdJzNgL4 lbm KaYjmLYrIyPYZoNkwLZcUsWCznLidfePZiSR5YjHD4SCYqA50uPWKgMKVtT3SmBYBcUUJ+Uj9EXYFdpI FbHG8TVewD9J0nn9aSVu0ghY/DBkGaX3SstdcByaIaXXfMSyp8DFqS/ZDpBfqbP9u7Mmnjf365PN8KyK 4vyZxsYIKNmBOTvkdOotm1RwFU//6tDgPPsiyV/9v8 GkRaDa/VH/+gmsccvXms+EI8IA0BOizZ0HbTl0231YoQY+nbkoHstDnonN6afgS11JWz+YwspiEA54N2 /kSdxcvlOLlVJ+cuo3I587mnWstS3gmFl5XzT+u5sT85XghecgetJV+YnvZdqYr8sNrD1RNPjSAIUUb1 PC627mDA6h8JP5BYoT42M75cs8Qahg4itrfZgr8RsR tHM4VhlbD8oTxTDNXg83B4sFnptWmMHr9N6dD+LDrCsJgwR6tj0Zv++ZK4pP7YHbHmBOdpjnQ2fSzj [file] qgRUgjHYEUDl0T ID Date Data Source [id number] 07/11/2020 01:41:45 PM [facility] Name Value Range Interpretation Code Description Data Mahogany rce(s) Supporting Document(s) Progress Note [facility] MGZTEn6mZfIWPjZo62/XPZjxJBIdz0TgOQgtSLo8SJluUDXlE1NwMOH6hI8hDIG5YZuYVqRwShOtXIEm lbm [file] ICAgICAgICAgICAgICAgICAgICAgICAgICAgICAgIC AgICAgICAgICAgICAgICAgICAgICAgICAgICAgICAgICAgICAgICAgICAgICAgICAgICAgICAgICAgIC KqZASlZGCvKS9EZHEaOEAfFDRbUEVnVHXmBRBaQJPbREQmFXUfQZIyRQNeYNXlDOFfEORqOSBwYVMiJZ AgICAgICAgICAgICAgICAgICAgICAgICAgICAgICAg RAHgMSJdWBFjHYBvWQTbACWnSB9ENJIwRQPqMZBtPXVhBEIgQERyMARjYRZqYVLcOJLlOJRoAEDzHIPq ICAgICAgICAgICAgICAgICAgICAgICAgICAgICAgICAgICAgICAgICAgICAgICAgICAgICAgICAgICAg IS7PDKTrUFOaNHTbMGRaFUQxLFIlXJUgJUXuWTOzWE AgICAgICAgICAgICAgICAgICAgICAgICAgICAgICAgICAgICAgICAgICAgICAgICAgICAgICAgICAgIC PyAXEkUTTrZDJeWE5RMFNcMJNsUYPnVMXfTEEuWKStOGUdMUWoMLAqAYQrGCUrRGEkZYJnLXLeEBGbSD AgICAgICAgICAgICAgICAgICAgICAgICAgICAgICAg SIYvOYPrKNDpEUHwCLWaOYNjXUSoGT7BLDJlUFEhXZUkWOIkOVNvPYDfFAMsUKJePNRzJNWbFJHiKOCr ICAgICAgICAgICAgICAgICAgICAgICAgICAgICAgICAgICAgICAgICAgICAgICAgICAgICAgICAgICAg HLWsJW5VTWMvFQPlXSJyRKRxSDMeBBVlQXBpEHBfAY AgICAgICAgICAgICAgICAgICAgICAgICAgICAgICAgICAgICAgICAgICAgICAgICAgICAgICAgICAgIC HxCNZaQCRsJZHvRLHdNR4LPRDoELBoSFFsTJOqWMDnQFYpIXBgOEEdVQVjHELbEULeSFOuAELcCWAoHX AgICAgICAgICAgICAgICAgICAgICAgICAgICAgICAg DQCtCMJtVVKyJNMdEYIuZUSvOMAjPEZdOI8BHLDnRRNdYOOdISSuMWUyHAHrNFQiSQXxELStTVXqBIGj ICAgICAgICAgICAgICAgICAgICAgICAgICAgICAgICAgICAgICAgICAgICAgICAgICAgICAgICAgICAg PNTtIRBvTP0FLH18vCUxd8S7ETIlFQ6ttug/Pg0KDQ jdwoOoyGFcEK7DXuTfXC4lpr8OAkHyKB9kcv7FBHeDZuYpF5Q0nDAnITAcVQDRMhJfF15sHVjvAp21FU upHMRjGdUuUZm2Oj9RVqAqF8ftDIKoJeM5RTPvKqW2TIYdDqTvUSoxGZ9Km4YltDOdSEi+Ol9ITE0zi6 WwFXyeBBVwUL9xvw5ICNeRLpYyP4YtwxW8ILTkXMMm Wl3WGGXpREPstLBjScMzLOCKQqWiH0PnoP37MNZHHg8+GRljovFePsvKVxRrCCPcj2PkIZc3XB9VJWMa MPf6zFFyQMCqQ8Elr0BqVx53LSAgEdeaWelkpFTvSHIFVAzekFtxlYmmDDBzWALcAO8rEi4xBAWdHKVg LjAoPUWASI6ZJEGaFKXnnUHgDPGrQWGCUA5YBKeoMS T9RGZjlwEyaDVaLOruQT2ODZZyvgXaOlDoEVIAFLm+Zq6AUC6vm1JtBLnjZzYyMH8ugr4MGHoQSkYdA0 D5sOMaI1P0HWkzWc4EFZVyVGVxSBbtLWAHLSajRR1TND2uxwJ9RE8RoOUzNCKbLEKktBPtXTa1X00kxF AyWKjbJY0EEIR+Bear+Yn3RCZHaFNClVUUuLrMgAPXY HxSsJ0PdV1BFi0KpB8BlCS78wWavimNzBGksNE3CLL0sHKIuKHCWSC0VhYOseH8kbtFqGMTqGCVHNlYu P77edGOaSZRdPDYuCZTuIp6EHFUgF2KazoUpuFwfejVnOJNnJEIOOO0WVRdencPzjHJasKpaLB28bYcw TC2VAp4IVxEtOG0ucj6OtPCqSp7LPIQfFN7NZWWzBJ CkNSRwJRE8LLKsMoBvXVdbYKSiAGCsOOT0MHMdOEMbXC4PPdGvMQPjIfL1LATxWALzLDDgad1BPFEfZC KvNeD3GPFvBOEdEZPlJYjqEORlEJThOVW3PURsYXCuQL1FUoYmIUBqNXU7XtViZORxFBQybx7WYQJrKM IjYvz0QIUpUBCdCZUsHYetWRSfMAT1AxYzXJGhJEEc NJ4EWxQkBQNdCCT8NAzmKSAlZOBzxs6DFKEvBNKeVaP8BtLkGHJjNXMiLFibNSGbXII6NfJkTRFfVHXx CA2ENsGxQXZnOHk2HZBjZLMeOATnfu7UHKGkCNLwLAhtDfXeGTXgLCKiWRwjUIHzESM8FCL8QXGmAWTu NN9WEjImJMDvJYogJNRhQISyVWQkvu6QEBAgWHEqDI A0MzWnACMyKJQxBPysQTJyMURiXMHyBASmCPZzBN2RWxKcEEIxEaGtBfWnASOeDFKwcm5DRYWzLYLrHX YaQcHaYFFnVSNdQJwrCHKhPBBsYAK9CSPlBYYmCO6NFnEbZEIbNzO1QGweWEEjMOMeoo5NEDEfYVZzRz JkMtGfZUTiYGIbXBylBSSdZLIfVis4OXXhVBKvYR6W EmApDTUrAmZ4HdAjVAWzXKNyaj2EeDRxcLkdkj9TNMeNTa0KlVmcDWR7IUtoHa3zyIZcSzNjKKHJEw7Q xmBhKCXiBABVTHcvHTIgXRA6UPxlNZTtSILfYAPmKWO1QNEfBsZxYME6IAfkZZFpYmR8PCPyLNF4SlRx WkUzNUT8DDLlMHZoVmEpIKvdSJOkT2E+QY0cSCq+Ae5Zf3VhdmF0cqJeORroZzz6NZ1IRNAHR9EEXl== ID Date Data Source [id number] 06/09/2020 02:42:24 PM [facility] Name Value Range Interpretation Code Description Data Mahogany rce(s) Supporting Document(s) Progress Note [facility] SSCSUj0cXeVOAaVj64/YMAbzQVQqe8ZgDDkhNNe8RAxnMKYlL2JkDLW0dE2aOQU9FNeVHsUmJqUuUkCe lbm [file] AgICAgICAgICAgICAgICAgICAgICAgICAgICAgICAgICAgICAgICAgICAgICAgICAgICAgICAgICAgIC AgICAgICAgICAgICAgICAgICANCiAgICAgICAgICAg ICAgICAgICAgICAgICAgICAgICAgICAgICAgICAgICAgICAgICAgICAgICAgICAgICAgICAgICAgICAg ICAgICAgICAgICAgICAgICAgICAgICAgICAgICANCiAgICAgICAgICAgICAgICAgICAgICAgICAgICAg ICAgICAgICAgICAgICAgICAgICAgICAgICAgICAgIC AgICAgICAgICAgICAgICAgICAgICAgICAgICAgICAgICAgICAgICANCiAgICAgICAgICAgICAgICAgIC AgICAgICAgICAgICAgICAgICAgICAgICAgICAgICAgICAgICAgICAgICAgICAgICAgICAgICAgICAgIC AgICAgICAgICAgICAgICAgICAgICANCiAgICAgICAg ICAgICAgICAgICAgICAgICAgICAgICAgICAgICAgICAgICAgICAgICAgICAgICAgICAgICAgICAgICAg ICAgICAgICAgICAgICAgICAgICAgICAgICAgICAgICANCiAgICAgICAgICAgICAgICAgICAgICAgICAg ICAgICAgICAgICAgICAgICAgICAgICAgICAgICAgIC AgICAgICAgICAgICAgICAgICAgICAgICAgICAgICAgICAgICAgICAgICANCiAgICAgICAgICAgICAgIC AgICAgICAgICAgICAgICAgICAgICAgICAgICAgICAgICAgICAgICAgICAgICAgICAgICAgICAgICAgIC AgICAgICAgICAgICAgICAgICAgICAgICANCiAgICAg ICAgICAgICAgICAgICAgICAgICAgICAgICAgICAgICAgICAgICAgICAgICAgICAgICAgICAgICAgICAg ICAgICAgICAgICAgICAgICAgICAgICAgICAgICAgICAgICANCiAgICAgICAgICAgICAgICAgICAgICAg ICAgICAgICAgICAgICAgICAgICAgICAgICAgICAgIC AgICAgICAgICAgICAgICAgICAgICAgICAgICAgICAgICAgICAgICAgICAgICANCiAgICAgICAgICAgIC AgICAgICAgICAgICAgICAgICAgICAgICAgICAgICAgICAgICAgICAgICAgICAgICAgICAgICAgICAgIC AgICAgICAgICAgICAgICAgICAgICAgICAgICANCjw/ iQVqY5odiBJkcoP8E9bfUw8JLa9RKP1ip8GnJFIpQQlyiwHuZkzHHlYsYIAmUooPXna8QZouYM4QcIAv P9JtL3JrFSmgWJ4SBJOwFQEznAZwVGKwJDQaDlO3DWMaUMvbUK0DpVWpRXmxPIQjNBEmEsOfMLNiVJZa IEAnAC4NLAReG484ngIdGa6ALb4LWrXsCA3msu2AKv McYFZsNdwUZsx9TJpkMS3AdGGuzSKoYULgSBFGPwGeV2foj5UvTeZcSZXLIDnhUJ3Ho9ZilOArRDo+Pg 0IXK9pl8QyNZowFWGwGK9bnq1ASBbHPgJzG1KmyDeqRABjo2qwSCCpMT3usJKwLLR9UTGzY8ezbyHrMF SXEDxqXSlsZK8KKIJ2GYZbTxKgNlTtPpJwALI3AULr OT9yNLufNI5MVND3PAyiFZCsWSZpP2yCAmXtVKW5WxKpaOvzMI8VPzClB7RovxCafDArGoPpLJGNUv2+ BKttbcKeXsnNIfX0OBRqz7LnYSa9HA6VXNTiYWegQZ0CKPTlbF9iYWwrPX5BLfXoBHPmHGOKUrQkA13k uSIrQLq2F3YeBcXqQSFgNpjsRHYsATjkChAqHQZdXh BdDQogID4+ID4+HJpoYF8ODLrbvvTwDARtTf7PEBGiAEUuOB3fAPBgAWWlO0K9oRjkPMAIQxGmT9fggl jaHJ6zAIEpA425aWxwxoBgZRMsFJIgRc5IXBGoGPD1WSYdyVDtTpUaPPRRRSgqNG3RpLXgUPP8rV6gHA wrSCJxVOZiS2yXXmZnoApbBZ51wRcrlpZgeGTyAXr+ Yx8WET9ky2IsIUs2trRmRVpqMYP0FAtmXOWiVEYjBOScJUC0YER4ULBRDpIvRQHiHDKlUBxnKBSjWDQh ex4YXLNxRVHxYjC3QNBlUSCqVXLoPNbpQRDyNHR7WSt0UQWbWRYqZS9VGrDwBPPzGNXfNMupHVKwVTXf yw3OOYZqLLKcOgm1PCTyVWDbXOHvIMnnBCIkLZGtRE U4USLcCQKgRG3UAfVgZFAgQSkpVjslDUPhSMYqed8HNZUiNHExFrF5OsOxITZaIPLuVJjpDKQcTEX6Tj k7GNKdZTZaJH6OKtXtIRDjFQv2QRXnFIGkWHKcrr3OHOLdBERkCGP0SbDbQQNeKWEnLHtxUFEmYOW2Yw PmCHKhJRObRR1ZPiPxDHWyELw9PnErQJKmPWSfvd3S USEhYPMySDr0WjDoQYHxWDFjEHptVDDyXHCdRVe2WLMuAICnJE0ENhNmVIKdLNUsOFVeZANyZBTjmv2I IFZqRESpEuPkJyUmYLDbTSWrRKnpXLBnTTVeRUDqTXUrXSYyMF3EIwGeOJNqMvBzRaJmBZEgMTDmhu2U HKLqXVUaWmRiZiEhRBTzZUNoBCtpFYQrJCOrXRS7FY LxWGLmHO3FEaXkUANhXfB9KMxgRZIlMXEvoq2HZVKwTVExKND0ZOVkOAGmQPJqNHtyVYBgQAC1WzcrPT WcYONeGS2ETwFnWWPfOkX9HrVbOGLvMCJsdg7BkESgsJqctl8KKBuCJl1XtFspKBU0NJjxZx1zfTDkLB IdCJHHUt0LmkHaWDMcFXBHTSzxSHMsZVT3YLdjWMLd TLxfDgC2TUK7GysfNwFiPFNbIvJ1Jxm8ZeE7VJFgYFZmAzZ4VCEfUYRuCCImJcWiVSNzTpWlOBhaWeT+ HI8bIAd+Uj8Sy2LajzT3aaOkFLztXPv6Ib1CATXRZ9RIBs== ID Date Data Source [id number] 06/05/2020 12:32:26 PM [facility] Name Value Range Interpretation Code Description Data Mahogany rce(s) Supporting Document(s) Progress Note [facility] XMRCQz6aOnKRNrWt72/YXGxaHDXhl6KsSWcoQUp0TRjqBOIzD0XmPVC6qW3bREG8NLeCAcBmZnJsBtX4 lbm [file] T0YNCg== ID Date Data Source [id number] 06/05/2020 12:32:00 PM EST [facility] Name Value Range Interpretation Code Description Data Mahogany rce(s) Supporting Document(s) SARS-CoV-2 RNA [facility] This lab was ordered by [facility] and reported by [facility]. 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 [facility] Patient has symptoms related to [facility] When did you start to experience these symptoms [Date and time] [Phen X] [facility] Patient was hospitalized because of this condition [facility] patient was admitted to ICU for condition [facility] Patient resides in a congregate care setting [facility] status [facility] ID Date Data Source [id number] 03/21/2020 11:09:23 AM EDT [facility] Name Value Range Interpretation Code Description Data Mahogany rce(s) Supporting Document(s) Progress Note [facility] CJPARf0qTyPESdZb99/PTVhuEUCii5LlMRstAZj4FAzyOREpV7TaVTY1nZ6fUIT9MNzHVkYiMsShYCBo lbm [file] [id number] ID Date Data Source [id number] 03/21/2020 09:52:29 AM EDT [facility] CT MAXILLOFACIAL WITHOUT CONTRAST 34999N INAL RESULTInterpreted by:Rachael Rodriguez MDHISTORY: Chronic maxillary sinusitis.COMPARISON: NoneTECHNIQUE: Helical scans through the paranasal sinuses were obtained and reformatted in sagittal and coronal planes. Automated dose-lowering techniques and/or adjustment according to patient size were utilized for this exam.FINDINGS/IMPRESSION:Mucus retention cyst versus polyp is present in the posterior inferior aspect of the right maxillary sinus. Minimal mucosal thickening is seen in the left maxillary and sphenoid sinuses and few left posterior ethmoids air cells. Otherwise the paranasal sinuses are well-aerated. Osseous defect in the medial wall of the left maxillary sinus measuring approximately 6 mm and a 4 mm in the right medial wall could represent accessory ostia. Minimal left craig scoliosis of the posterior-superior nasal septum is present. In the left sphenoid sinus there is remodeling and small bony dehiscence along the inferior aspect of the left carotid canal.This document has been electronically signed by Rachael Rodriguez MD on 03/21/2020 9:50 AM Name Value Range Interpretation Code Description Data Mahogany rce(s) Supporting Document(s) Procedure Social History Code Duration Value Status Description Data Source(s ) Alcohol intake 12/19/2020 12:00:00 AM EDT Current drinker of al cohol (finding) completed Current drinker of alcohol (finding) [facility] Tobacco use and exposure 12/19/2020 12:00:00 AM EDT Never used co mpleted Never used [facility] Smoking 12/19/2020 12:00:00 AM EDT Never smoker completed Never s [facility] Alcohol intake 11/17/2020 12:00:00 AM EDT Current drinker of al cohol (finding) completed Current drinker of alcohol (finding) [facility] Smoking 11/16/2020 12:00:00 AM EDT Never Smoker completed Never S moker [facility] ([facility] Smoking 11/16/2020 12:00:00 AM EDT Never Smoker completed Never S moker [facility] ([facility]) Smoking 11/16/2020 12:00:00 AM EDT Never Smoker completed Never S moker [facility]CW[facility] ([facility]) Smoking 11/16/2020 12:00:00 AM EDT Never Smoker completed Never S moker eCW1 ([facility]) Smoking 11/16/2020 12:00:00 AM EDT Never Smoker completed Never S moker eCW1 ([facility]) Smoking 11/16/2020 12:00:00 AM EDT Never Smoker completed Never S moker [facility]CW1 ([facility]) Smoking 10/05/2020 12:00:00 AM EDT Never Smoker completed Never S moker eCW1 ([facility]) Smoking 10/05/2020 12:00:00 AM EDT Never Smoker completed Never S moker [facility]CW[facility] ([facility]) Alcohol intake 08/16/2020 12:00:00 AM EST Current drinker of al cohol (finding) completed Current drinker of alcohol (finding) [facility] Alcohol intake 07/11/2020 12:00:00 AM EST Current drinker of al cohol (finding) completed Current drinker of alcohol (finding) [facility] Alcohol intake 06/09/2020 12:00:00 AM EST Current drinker of al cohol (finding) completed Current drinker of alcohol (finding) [facility] Alcohol intake 03/21/2020 12:00:00 AM EDT Current drinker of al cohol (finding) completed Current drinker of alcohol (finding) [facility] Vital Signs ID Date Data Source UNK Name Value Range Interpretation Code Description Data Source(s) Systolic blood pressure 112 mm[Hg] 112 mm[Hg] [facility] Diastolic blood pressure 60 mm[Hg] 60 mm[Hg] [facility] Body mass index (BMI) [Ratio] 31.37 kg/m2 31.37 kg/m2 [facility] Body weight 107.865 kg 107.865 kg [facility] Heart rate 52 /min 52 /min [facility] Oxygen saturation in Arterial blood by Pulse oximetry 94 % 94 % [facility] Respiratory rate 18 /min 18 /min [facility] Body height 185.4 cm 185.4 cm [facility] Body height 74 [in_i] 74 [in_i] eCW1 ([facility]) Body mass index (BMI) [Ratio] 30.43 kg/m2 30.43 kg/m2 [facility] ([facility] Heart rate 62 /min 62 /min W1 ([facility]) Respiratory rate 18 /min 18 /min eCW1 ([facility]) Body temperature 97.8 [degF] 97.8 [degF] eCW[facility] ( [facility]) Systolic blood pressure 119 mm[Hg] 119 mm[Hg] e CW1 ([facility]) Diastolic blood pressure 85 mm[Hg] 85 mm[Hg] eCW1 ([facility]) Body weight 237 [lb_av] 237 [lb_av] eCW1 ([facility]) Heart rate 72 /min 72 /min eCW1 ([facility]) Respiratory rate 18 /min 18 /min eCW1 ([facility]) Body temperature 97.7 [degF] 97.7 [degF] eCW1 ( [facility]) Systolic blood pressure 110 mm[Hg] 110 mm[Hg] e CW1 ([facility]) Diastolic blood pressure 77 mm[Hg] 77 mm[Hg] eCW1 ([facility]) Body weight 245 [lb_av] 245 [lb_av] eCW1 ([facility]) Body height 74 [in_i] 74 [in_i] eCW1 ([facility]) Body mass index (BMI) [Ratio] 31.45 kg/m2 31.45 kg/m2 eCW1 ([facility]) ID Date Data Source [id number] 12/19/2020 02:02:04 PM EDT [facility] Name Value Range Interpretation Code Description Data Source(s) PREFERRED NAME [facility] ID Date Data Source [id number] 08/16/2020 09:44:35 AM [facility] Name Value Range Interpretation Code Description Data Source(s) PREFERRED NAME [facility] PREFERRED NAME [facility] ID Date Data Source [id number] 07/11/2020 01:41:45 PM [facility] Name Value Range Interpretation Code Description Data Source(s) PREFERRED NAME [facility] PREFERRED NAME [facility] ID Date Data Source [id number] 06/09/2020 03:48:17 PM [facility] Name Value Range Interpretation Code Description Data Source(s) PREFERRED NAME [facility] PREFERRED NAME [facility] ID Date Data Source [id number] 06/06/2020 06:27:25 AM [facility] Name Value Range Interpretation Code Description Data Source(s) PREFERRED NAME [facility] PREFERRED NAME [facility] Patient Treatment Plan of Care Planned Activity Planned Date Details Description Data Source (s) 24 HR metoprolol succinate 25 MG Extended Release Oral Tablet 11/17/2020 12:00:00 AM [facility] Colchicine 0.6 MG Oral Capsule 10/06/2020 12:00:00 AM [facility] Allopurinol 300 MG Oral Tablet 10/03/2020 12:00:00 AM [facility] atorvastatin 80 MG Oral Tablet 07/18/2020 12:00:00 AM [facility] 24 HR metoprolol succinate 50 MG Extended Release Oral Tablet 07/04/2020 12:00:00 AM [facility] Ramipril 5 MG Oral Capsule 07/04/2020 12:00:00 AM [facility] 24 HR metoprolol succinate 50 MG Extended Release Oral Tablet 07/04/2020 12:00:00 AM [facility] Diazepam 5 MG Oral Tablet 06/08/2020 12:00:00 AM [facility] Acetaminophen 325 MG / Hydrocodone Bitartrate 5 MG Ora l Tablet 06/07/2020 12:00:00 AM [facility] Amoxicillin 875 MG / Clavulanate 125 MG Oral Tablet 06/07/20 12:00:00 AM [facility] cetirizine hydrochloride 10 MG Oral Tablet 03/31/2020 12:00:00 AM E DT [facility]CW[facility] ([facility]) cetirizine hydrochloride 10 MG Oral Tablet 03/31/2020 12:00:00 AM E DT eCW1 ([facility]) cetirizine hydrochloride 10 MG Oral Tablet 03/31/2020 12:00:00 AM E DT eCW1 ([facility]) 24 HR metoprolol succinate 50 MG Extended Release Oral Tablet 03/14/2020 12:00:00 AM [facility] ospital cetirizine hydrochloride 10 MG Oral Tablet 11/17/2019 12:00:00 AM E DT [facility] Azelastine HCl 137 MCG/SPRAY SOLN 06/07/2019 12:00:00 AM EST [facility] Loratadine 10 MG Oral Tablet 07/09/2018 12:00:00 AM EST [facility] Ergocalciferol 400 UNT Oral Tablet 12/02/2016 12:00:00 AM EDT [facility] fluticasone (FLONASE) 50 MCG/ACT nasal spray 12/25/2014 12:00:00 AM EDT [facility] Omeprazole 20 MG Delayed Release Oral Tablet 07/25/2011 12:00:00 AM [facility] 60 ACTUAT formoterol fumarate 0.005 MG/A CTUAT / mometasone furoate 0.1 MG/ACTUAT Metered Dose Inhaler [facility]
[2021-05-17] MEDS ORDERED: LEVO500T3 (10:37)
--- OUTSIDE RECORDS SUMMARY | 2021-05-17 14:58 | CCD ---
Author Author [facility] Organization [facility] Address Unknown Phone Unavailable Care Team Providers Care Blog Writer Name Role Phone Shorty EPPS, T Javad [...] Unavailable Shorty EPPS, T Javad Unavailable Shorty PEPS, T Jaavd Unavailable Shorty EPPS, T Javad Unavailable Shorty [...] Cherrie PALENCIA MD Unavailable Unavailab le IRENE (SEGRIO), Cherrie PALENCIA MD Unavailable Unavailab le IRENE [...] (SERGIO), Cherrie PALENCIA MD Unavailable Unavailab le IREEN (SERGIO), Cherrie PALENCIA MD Unavailable Unavailab le [...] Torre MD Unavailable Unavailable Desmond De La Trore MD Unavailable Unavailable Desmond De La Torre [...] Torre MD Unavailable Unavailable Desmond De La oTrre MD Unavailable Unavailable Desmond De La Torre [...] Torre, Desmond Cervantes MD Unavailable Unavailable De Al TorreDesmond MD Unavailable Unavailable De La TorreDesmond [...] is protected by Article 27-F of the [facility] Public Health law. If you continue you may have access to information: Regarding HIV / AIDS; Provided by facilities licensed or operated by the [facility] Office of Mental Health; or Provided by the [facility] Office for People With Developmental Disabilities. If such information is present, then the following [facility] mandated warning applies: This information has been [...] law may result in a fine or shelter sentence or both. A general authorization for the release of medical or other information is NOT sufficient authorization for further disc losure. Family History Family Member Name Family Member Gender Family Member Status Date o f Status Description Data Source(s) Unknown Unknown Problem MEDENT ([facility]) Unknown Male Problem MEDENT ([facility]) Encounters Encounter Providers Location Date Indications Data Source(s ) Outpatient Attender: Javad Oro MDAttender: JAVAD COBIAN 10/16/2021 12:00:[address] [facility] Unknown [address] [facility] [place] [address] 04/12/2021 12:00:00 AM EDT eCW1 ([facility]) Unknown [address] [facility] [address] 04/12/2021 12:00:00 AM EDT eCW1 ([facility]) Unknown [address] [facility] [place] [address] 04/05/2021 12:00:00 AM EDT eCW1 ([facility]) Unknown [address] [facility] [place] [address] 03/27/2021 12:00:00 AM EDT eCW1 ([facility]) Unknown [address] [facility] [place] [address] 01/29/2021 12:00:00 AM EDT eCW1 ([facility]) Outpatient Attender: Javad Oro MDA ttender: JAVAD OROReferrtommie: Billy De La Torre MD [id number] 12/19/2020 12:00:00 AM EDT Chronic maxillary sin usitis [facility] Chronic maxillary sinusitis Attender: TALHA VOSS) MDReferrer: Tia De La Torre MD 12/04/2020 08:21:06 PM EDT [facility] Outpatient Attender: Yenny RIDLEY SJP.HERLINDA-SJP.HERLINDA 07:55:12 AM EDT - 11/17/2020 09:23:23 AM EDT [facility] [place] [address] [facility] [place] [address] 11/16/2020 12:00:00 AM EDT eCW1 ([facility]) Attender: TALHA BONILLA (MITCHELL) MDReferrer: Tia De La Torre MD 10/10/2020 08:21:04 PM EDT [facility] [place] [address] [facility] [address] [place] [address] 10/05/2020 12:00:00 AM EDT eCW1 ([facility]) [place] [address] [facility] [place] [address] 10/05/2020 12:00:00 AM EDT eCW1 ([facility]) Outpatient Attender: JAVAD Pyleerrotmmie: Billy De La Torre MD 0 [id number] 08/16/2020 12:00:00 AM EST Allergic rhinitis, unspecified [facility] Allergic rhinitis, unspecified Outpatient Attender: JAVAD Mixon: Billy De La Torre MD 0 [id number] 07/11/2020 12:00:00 AM EST Chronic frontal sinusitis [facility] Chronic frontal sinusitis [place] [address] [facility] [facility] [address] [place] [address] 07/07/2020 12:00:00 AM EST eCW1 ([facility]) [place] [address] [facility] [address] [place] [address] 07/06/2020 12:00:00 AM EST eCW1 ([facility]) Outpatient Attender: JAVAD OROReferrer: Billy De La Torre MD 0 [id number] 06/09/2020 12:00:00 AM EST Chronic maxillary sinusitis [facility] Chronic maxillary sinusitis Outpatient Attender: HUGO Reneeer: JAVAD ORO [id number] 06/05/2020 12:00:00 AM EST - 06/06/2020 12:00:00 AM EST [facility] Outpatient Attender: JAVAD OOR [id number] 03/21/2020 12:00:00 A M EDT [facility] Outpatient Referrer: JAVAD ORO 03/21/2020 12:00 :00 AM EDT Chronic maxillary sinusitis [facility] Chronic maxillary sinusitis [place] [address] [facility] [facility] [address] [place] [address] 03/21/2020 12:00:00 AM EDT eCW1 ([facility]) Immunizations Vaccine Date Status Description Data Source(s) COVID-19 dose #2 given elsewhere Unspecified 09/20/2020 12:0 1:00 PM EDT completed eCW1 ([facility]) COVID-19 dose #2 given elsewhere Unspecified 09/20/2020 12:0 1:00 PM EDT completed eCW1 ([facility]) COVID-19 dose #2 given elsewhere Unspecified 09/20/2020 12:0 1:00 PM EDT completed eCW1 ([facility]) COVID-19 dose #2 given elsewhere Unspecified 09/20/2020 12:0 1:00 PM EDT completed eCW1 ([facility]) COVID-19 dose #2 given elsewhere Unspecified 09/20/2020 12:0 1:00 PM EDT completed eCW1 ([facility]) COVID-19 dose #2 given elsewhere Unspecified 09/20/2020 12:0 1:00 PM EDT completed eCW1 ([facility]) COVID-19 dose #2 given elsewhere Unspecified 09/20/2020 12:0 1:00 PM EDT completed eCW1 ([facility]) COVID-19 dose #2 given elsewhere Unspecified 09/20/2020 12:0 1:00 PM EDT completed eCW1 ([facility]) COVID-19 VACCINE Pfizer 09/20/2020 12:00:00 AM EDT completed [facility] Vaccine Series Complete: YESThis Data wa s Submitted to [facility]. COVID-19 dose #1 given elsewhere Unspecified 08/30/2020 12:0 0:00 PM EST completed eCW1 ([facility]) COVID-19 dose #1 given elsewhere Unspecified 08/30/2020 12:0 0:00 PM EST completed eCW1 ([facility]) COVID-19 dose #1 given elsewhere Unspecified 08/30/2020 12:0 0:00 PM EST completed eCW1 ([facility]) COVID-19 dose #1 given elsewhere Unspecified 08/30/2020 12:0 0:00 PM EST completed eCW1 ([facility]) COVID-19 dose #1 given elsewhere Unspecified 08/30/2020 12:0 0:00 PM EST completed eCW1 ([facility]) COVID-19 dose #1 given elsewhere Unspecified 08/30/2020 12:0 0:00 PM EST completed eCW1 ([facility]) COVID-19 dose #1 given elsewhere Unspecified 08/30/2020 12:0 0:00 PM EST completed eCW1 ([facility]) COVID-19 dose #1 given elsewhere Unspecified 08/30/2020 12:0 0:00 PM EST completed eCW1 ([facility]) COVID-19 VACCINE Pfizer 08/30/2020 12:00:00 AM EST completed [facility] Vaccine Series Complete: NOThis Data was Submitted to [facility]. Medications Medication Brand Name Start Date Product [...] IN EACH NOSTRIL EVERY MORNING SOLD: 02/09/2021 [facility] 137 mcg (0.1 %) 12/12/2020 12:00:00 [...] (25 mg total) by mouth [facility] Coronary angioplasty status 25 mg 11/17/2020 12:00:00 [...] CAPSULE BY MOUTH TWO TIMES A DAY [facility] 25 mg 10/04/2020 12:00:00 AM [...] active Take 300 mg by mouth daily [facility] 80 mg 07/19/2020 12:00:00 AM [...] TAKE ONE TABLET BY MOUTH EVERY DAY [facility] 875-125 mg 07/14/2020 12:00:00 AM EST tablet [...] tablet (50 mg total) by mouth daily [facility] Ramipril 5 MG Oral Capsule ramipril (ALTACE) 5 MG caps ule ramipril (ALTACE) 5 MG capsule 07/04/2020 12:00:00 AM EST active TAKE ONE CAPSULE BY MOUTH EVERY DAY [facility] 24 HR metoprolol succinate 50 MG Extende d Release Oral Tablet metoprolol succinate (TOPROL-XL) 50 MG 24 hr tablet metoprolol succinate (TOPROL-XL) 50 MG 24 hr tablet 07/04/2020 12:00:00 AM EST abort ed TAKE ONE TABLET BY MOUTH EVERY DAY [facility] 20 mg 06/28/2020 12:00:00 AM EST capsule,delayed [...] tive Take 1-2 an hour before procedure [facility] 5-325 mg 06/07/2020 12:00:00 AM [...] mouth Two Times Daily for 10 days [facility] Acetaminophen 325 MG / Hydrocodone Lionle trate 5 MG Oral Tablet HYDROcodone- Acetaminophen 5-325 MG Oral Tablet (LORTAB) HYDROcodone-Acetaminophen 5-325 MG Oral Tablet (LORTAB) 06/07/2020 12:00:00 AM EST 1 {tbl} Oral active Take 1 tablet by mouth every 8 (eight) hours as needed for Pain for up to 3 days, Max Daily Dose: 3 tablets [facility] 875-125 mg 06/07/2020 12:00:00 AM [...] suspe nded Cetirizine HCl 10 MG eCW1 ([facility]) cetirizine hydrochloride 10 MG Oral Tablet Cetirizine HCl 10 MG Cetirizine HCl 10 MG 03/31/2020 12:00:00 AM EDT 1.0 {tablet} activ e Cetirizine HCl 10 MG eCW1 ([facility]) cetirizine hydrochloride 10 MG Oral Tablet Cetirizine HCl 10 MG Cetirizine HCl 10 MG 03/31/2020 12:00:00 AM EDT 1.0 {tablet} suspe nded Cetirizine HCl 10 MG eCW1 ([facility]) cetirizine hydrochloride 10 MG Oral Tablet Cetirizine HCl 10 MG Cetirizine HCl 10 MG 03/31/2020 12:00:00 AM EDT 1.0 {tablet} activ e Cetirizine HCl 10 MG eCW1 ([facility]) cetirizine hydrochloride 10 MG Oral Tablet Cetirizine HCl 10 MG Cetirizine HCl 10 MG 03/31/2020 12:00:00 AM EDT 1.0 {tablet} activ e Cetirizine HCl 10 MG eCW1 ([facility]) 24 HR metoprolol succinate 50 MG Extende d Release Oral Tablet Metoprolol Succinate ER 50 MG Oral Tablet Extended Release 24 Hour (TOPROL-XL) Metoprolol Succinate ER 50 MG Oral Tablet Extended Release 24 Hour (TOPROL-XL) 03/14/2020 12:00:00 AM EDT 50 mg Oral aborted Take 50 mg by mouth daily [facility] atorvastatin 80 MG Oral Tablet [...] aborted Take 10 mg by mouth daily [facility] Azelastine HCl 137 MCG/SPRAY SOLN 23712-105-74 06/07/2019 12:00:00 AM EST aborted [facility] 137 mcg (0.1 %) 06/07/2019 12:00:00 AM EST aerosol,spray 30 SPRAY TWO SPRAYS IN EACH NOSTRIL EVERY MORNING SPRAY TWO SPRAYS IN EACH NOSTRIL EVERY MORNING SOLD: 05/10/2020 [facility] Loratadine 10 MG Oral Tablet loratadine (CLARITIN) 10 MG tablet loratadine (CLARITIN) 10 MG tablet 07/09/2018 12:00:00 AM EST aborted CLARITIN 10 MG TABS [facility] Ergocalciferol 400 UNT Oral Tablet Ergocalciferol 10 M CG (400 UNIT) TABS Ergocalciferol 10 MCG (400 UNIT) TABS 12/02/2016 12:00:00 AM EDT aborted VITAMIN D2 TABS [facility] fluticasone (FLONASE) 50 MCG/ACT nasal spray [id number] 12/25/2014 12:00:00 AM EDT aborted [facility] Omeprazole 20 MG Delayed Release Oral Ta blet Omeprazole Magnesium 20 MG Oral Tablet Delayed Release (PRILOSEC OTC) Omeprazole Magnesium 20 MG Oral Tablet Delayed Release (PRILOSEC OTC) 07/25/2011 12:00:00 AM EST 20 mg Or al aborted Take 20 mg by mouth [facility] 60 ACTUAT formoterol fumarate 0.005 MG/A CTUAT / mometasone furoate 0.1 MG/ACTUAT Metered Dose Inhaler Mometasone Furo-Formoterol Fum 100-5 MCG/ACT Inhalation Aerosol (DULERA) Mometasone Furo-Formoterol Fum 100-5 MCG /ACT Inhalation Aerosol (DULERA) 2 {puff} Inhalation aborted Inhale 2 puffs into the lungs [facility] Insurance Providers Payer name Policy type / Coverage type Policy ID Covered democrat ID Covered democrat's relationship to brown Policy Brown Plan Information ANGELO [facility] Part B [id number] Self [id number] EXCELLUS H [id number] Self [id number] EXCELLUS H [id number] Self [id number] BS [place] Commercial [id number] Self [id number] Blue Cross Blue Shield P [id number] SELF [id number] [employer] HMO PPO POS [id number] EXCELLUS H [id number] Self [id number] EXCELLUS H [id number] Self [id number] EXCELLUS BCBS [id number] Margaret YND [id number] EXCELLUS BCBS [id number] [employer]-Commercial [id number] [employer] [id number] ANSI-Commercial [id number] [employer] [id number] ANSI-Commercial [id number] [employer] [id number] ANSI-Commercial [id number] ANSI-Commercial [id number] ANSI-Commercial [id number] ANSI-Commercial [id number] BCBS [place] [id number] S [id number] [place]BS [place] WATN PPO 302/307 [id number] SP [id number] EXCELLUS BCBS P [id number] S [id number] BCBS [place] WAT[place] PPO 302/307 [id number] SP [id number] [place]BS [place]AT[place] PPO 302/307 [id number] SP [id number] SELF PAY ONLY [id number] SP [id number] BCBS [place] WATN PPO 302/307 [id number] SP [id number] [place]BS [place] PPO 302/307 [id number] SP [id number] [employer] BCBS Health Maintenance Organization (HMO) [id number] Self [id number] BCBS .[id number] Blue Cross/Bl ue Shield .[id number] ANSI-Commercial [id number] ANSI-Commercial [id number] ANSI-Commercial [id number] Problems, Conditions, and Diagnoses Code Display Name Description Problem Type Effective Dates Data Source(s) Z98.61 Coronary angioplasty status Coronary angioplasty statu s Diagnosis 11/17/2020 07:55:12 AM EDT [facility] G47.33 Obstructive sleep apnea (adult) (pediatr ic) Obstructive sleep apnea (adult) (pediatr Diagnosis 11/17/2020 07:55:12 AM EDT [facility] E78.00 Pure hypercholesterolemia, unspecified P ure hypercholesterolemia, unspecified Diagnosis 11/17/2020 07:55:12 AM EDT [facility] G47.33 Obstructive sleep apnea (adult) (pediatr ic) Obstructive sleep apnea (adult) (pediatric) Diagnosis 08/15/2020 04:09:13 PM [facility] Z95.5 [id number] S/P coronary artery stent placement Probl em 11/16/2020 12:00:00 AM EDT eCW1 ([facility]) E78.00 [id number] Hypercholesterolemia Problem 11/16/2020 12:0 0:00 AM EDT eCW1 ([facility]) I25.2 [id number] History of anterior wall myocardial infar ction Problem 11/16/2020 12:00:00 AM EDT eCW1 ([facility]) Z00.00 [id number] Encounter for genera l adult medical examination without abnormal findings Problem 11/16/2020 12:00:00 AM EDT eCW1 ([facility]) G47.33 [id number] BRAIN (obstructive sleep apnea) Problem 11/16/2020 12:00:00 AM EDT eCW1 ([facility]) Surgeries/Procedures Procedure Description Date Indications Data Source(s) ECG ROUTINE ECG W/LEAST 12 LDS W/I&R <td>POCT AMB EKG</td><td>Routine</td><td>11/17/2020 9:11 AM EDT</td><td> Coronary angioplasty status</td><td> </td> 11/17/2020 09:11:00 AM EDT Coronary angioplasty status [facility] Coronary angioplasty status CT MAXILLOFACIAL W/O CONTRAST MATERIAL <td>CT MAXILLOF ACIAL WITHOUT CONTRAST 74999</td><td>Routine</td><td>03/21/2020 9:10 AM EDT</td><td> Chronic maxillary sinusitis Chronic ethmoidal sinusitis Chronic allergic rhinitis Chronic frontal sinusitis</td><td> </td> 03/21/2020 09:10:11 AM EDT Chronic frontal sinusitisChronic allergi c rhinitisChronic ethmoidal sinusitisChronic maxillary sinusitis [facility] Chronic frontal sinusitis Chronic allergic rhinitis Chronic ethmoidal sinusitis Chronic maxillary sinusitis Results ID Date Data Source [id number] 01/18/2021 08:45:00 AM EDT [facility] Name Value Range Interpretation Code Description Data Mahogany rce(s) Supporting Document(s) Colonoscopy [facility] SSHCFw2lNnMNCgJzXCFcLdmSQHvxTBouSSCrA5Z1BFqpSe8ZFBeivbFmKITwUb5+VMYiLB5aig6xTGXn gMy [file] xo12nspCinrB3QYL14Za5H0+SZ/ex5srpY+inmma+6Kf2gerWLiSjViYjHK0+1u/maGYH96lNV+External Grinder Tender+o [file] 5+F1+LL470E5I++r7RIK77pp+Ez6nSxH3WIp6u/B1G9U+AP72f+3ew/closer on+3NmbBZGpyPZ79G/4Prr+Fk [file] OHoDa7TFGDQZHl1HiE2RxYJqUFCQfugNzpYVwpIDx1KWxrqeEMwcJ5rgQhNEYZ5vRzD9DJG194lN+shirt hemmer [file] YZz1V+sFATVd/d9fK5el38JXDBHzDKZCEjnwr9OZSX Tu7hhvcsbmFmOUiwX9aWiNgNzCbrIzWM1Q6OX1dozF5Oeq4ryncS6qUYX2K6Vvr4c0uuvxTot+sVzFQ2 3VGmwOlP3mXgHDQ4StdUWNI52K9NfjexGcOS0Qg3eQA7tFSYpMY7ymZqqclvs43zvf0v/fwXUyugUMBb ZvLcj4LX/2zTLgzSuXDZ9Wqz4CxImXArk8lb8kj7CL heEkyD7/6rwAps34QfE3awLEthmrSohJuY0owTKsi3q7E5aaGDmhDct/8ksjeEyDxXA3gjdGk6M8bYI5 kCzV3CHi/DddZqZB5Mqm/CgYUnmVNWd9TJgbBLVUyHzOW/Lk/w1sHIt9TvKZTR1ZtdZVk+Rv0IVVaKg+ eWx4BusvC4982bRjGVetWklIXLLECOEHr3tPAu/TKf Cx5BUioo4FWkLMl/l7b35AZ1pBdtxBEfaj0G+2lrnoUtAFjxgaw6hRd2LYL7spp6zGnYL9b5din9nbp4 5llufKMav4CbhiO1q3IE8MqgPdbeAdKKfuaD+X9X3Sk7jai8nWM4gq4lCy2w7s3nQU9AUX3gko5vEcCH kTHWh/EiM/4cBCq+SDiEfVQ8kqZpbIp16NtctkTzzN nZptyDU9DG5VDVKRcQIosQD9LZMV2NP8w5Hyim08ynu+4ppZ2kPwqsQOQ+Ov8N+0s0zjUP2SKYqhjQJ0 r81WTBCArd7ctDvH3PCzhs0uLESn/ipS2CzIzYgA765/tjxhE6x+Bm0BjJCq6wukWX3n5fr/ISv97j41 RREOUcLAsgdmjnaRjkQLYjTJZNaRNXofZLU9uADlhG Fy/hag3x4+OqchOugDkZNIPhCvlHFimkVHIMw+I1slK+hiHujtmMozbhK+8lbfu+veE0/Jose Raul/r8bZtVR [file] cashier courtesy booth+JzTP9A9RZ+m8rJS6xe6sgxcLUn6LP3+IFWMukQ [file] Анна/yHWHSXNju/1WSIK6+2cmGr9yf4OJGiwfS5Tp7D [file] ln+8hMaWcVTGByVUrspq8ti01U9ysnzYlqwlMl1hxhhwjB3UTHhjVDkk38R0pteoRmjj/Bear+9TIN2WL sOGiWnBoxdn1bcBmmPguD1jJFVYX4gR8yx+y/2iTLf+LFWmzWasKflVhkcAC54S+EZkrNi30PQYc1WzY dn2PvPYxn5shzbajQP+CA31helu7pAB/6d6YDpzw7Z Mjlfix3dSQwKNAMI1EWwQ6c4e/++5zsMDMz/taheF/4hMRTb6H9ZGT3jy6JtNRDgOUHlJU2lkc1tSsCx JG6ool96ZH0NIE4sdNwnTzM+MsI4vyVggO4XiWv1PRDgHODqEAb5YmUiUIAkE62PM8myJnMjQB1NKG8I II6nr5LjWXAcHVKxXS8jcx2zQkTvLR9jdp58PL0PwN t2TKEmK0MgKODmUXNst0DwX6miaes4oLY4JZ7MDVFkTELTDaX3MpXCGRGJFJazFNIKXyK1VDQlAaRYTQ XZXnBBGrW4CGW0WVN6XbMtE7NKVSRGA5FLZHnYSSYdCIAAYuVPCLQ+II3Tt197CKNtQEVLU8cxPb4qQm SiUMPfB5r6AIXpFI9OrNSaWK3PBfRuU4rmYeQtHLDw XT4+e8GcLQWeMAk89sYlTLClDVLIhlqz3eSNvcLXyVRp3oZNIN06I1JUSscHl9Qqo/2jMHuZVGF2Zlah AbJbgc2ITFkBU8eJWcAfHKB8fvDjiA4TEW5gc0TbPH3Sn3BpokM1uzEhXJh1HAE2XNTIDkWxMB6Z ID Date Data Source [id number] 12/19/2020 02:02:04 PM EDT [facility] Name Value Range Interpretation Code Description Data Mahogany rce(s) Supporting Document(s) Progress Note [facility] JTLQDa4xUmUDDkCp17/FVJywYEZgx4GvHYkhVPx5BMojOLHeP0JeSKF6dX7mRNS2AOnMBkPoYoKoBeAd lbm [file] UeMlOKHfAsmuXx8xSJATEt7+VHepqMTevMocHWBUYtXtTKKmVDhbCKVDGz9H ID Date Data Source [id number] 10/10/2020 07:30:00 AM EDT [facility] Name Value Range Interpretation Code Description Data Mahogany rce(s) Supporting Document(s) Follow Up [facility] PRBYJo3vAvFBSiSjKUAkCqdXVBbrYBayHHPjJ9Z9KNniTv3QEUywepAhXJTmQs6+XSBsYS9pnv0pPBPr gMy [file] YyTkx/esGQwm6txUKn/c6bTSXf5HWlbDGrByA954B4VsrK29N9uicd/YHYM1wbhcroBJODCMLyUto/closer on [file] ship/rec/doc control+LIuIp43aL7CQetj6yf1rwAmSdFT0KMLtw+9N6gtEk5c6z4ys/G1LNa1WF3qnE9IWVNZqD/bOgULw [file] 0HeSCcK3NaPVYc9VY97gbNcPoe/M7uu6PHLLMF+Sofía [file] 7Nnps8INard2+nPW6a4vXox/Tuco2uzVfGzV7o9+closer on [file] arjiEdJeYXpL0Afqmg+VHWLqhtevDYiHXsranoG4c2 tw0cwLPms3534Dgfj5ip365kvrRWe5SfCouB7sKCU3zvJgAzcSqr4nRu4jaUzGWXHpxKnLMYuwe4lmGJ sWFwCEaGKHb7ZjBRiBVEmjNDP7oKD4hqSojyi8imB4QhOdaxjfPw6jOFxM4oucv3VYaBoV5p9z5ia+2Q 4JsiB4VTFGtXJdY9T3Lv3/LUfzr+1BLGvzlLfMd0s4 akmg7ogNRlZ0GdLNmI4ynoMPd4gEUPlx3mr0wtNpI/Xs1mAaVzdxCiFaVbqXP0ZblqliGo1ILkypKSkM 97PNL9PffD8WYVFbLrXnhLlLEydd0A9sohIPtqe22kBGRyon6jKUPC/zd6gSVeJOqh7GVLnMv68DDrKt UYtMEoZlgH4gqTli8p+/3igTyM/o30Ez7L7IIEx477 cphzEk1h8P8Gwm4ztrkoU7X30HA8JDKkGpGThwCSowhPFvAG3jW2trlJKPHyDZ+6qLg2hkYObwc0vWpB judUK61aVB9lI4s5XxtgrsSDH/s8/RtYJndDSK6iWyuHs7Di4FKC4LBmAZT4IFy6sASy7ZMxBG9y6/+N //8M2Za4CpGM9d0KDV31mnXtdEeq4CeSjsd8vBYgJ9 P5RnJ1pp8CCagC/Fbaq6xNCk5PL2VZeP1siMxeRpms/LuCAoHMgXRMWkc3N6YBxV7EQUQbb69KNNnf4C z0suKaIsL3/fen5o/n9e08KxKaV9hwmyTJ9ewNTgnXUE/dILOXJODlWKk/d2nGwF0vCpz6DKNZEVcEJh pDl4Tns++/JXfh8/fM0X82uCkqjaANlryqNWjz [file] lMK/0n6fvzM+9+KYMMo8liEoebsjAGR6Sx2qsscYdpn0LN7NReamh7oUxp+SENIOR CARE/u+ngywaQtVFAgX5GD [file] ann marie+PvlflQiAkW0gdyR77CjMOdlLVJJ9xJ9GPQlAeO [file] r3KPK2VUOJcdon+diamante+8a8ay/FcgY0CjuOIFLBhzoS6EKMGbj2cOn+Gu+H2POYuiLqzppQAJBdqvPvAfH QeJdn1zaqyl2K/CmRMbsCBM2RlOuHwdwilLG5UqoMYs8fAaZgxJB83wO6XYOlmCUaDogdnHSMs7BYT3H jqbqtXc54RIMg3IMnGinZrGR1eO9aTctzqw/CVqsxP 9g0dwULru7Pwc5rPJNzrf4pNn3GRZi9Y84ym/f02p1KYhvLRCadap8LQWe/JiabJ/wUer3jPx4N0c/WX 9h41z2BAJrKdGR9+BghEHcQXexqKVxUKFri/pVpm7QFr78W5BQF8RKdzG5HgaC8TfWERAXWpxGVSatSe HU7G5U+h1+du6TAqFHkF36qpB+56Y1Zv9+I92brdWo 2Emct+cVkY0ooBgz5IklLV1ZrRYVQZI+rognDEc7b6RaB9pNZCCEw7V3CgcdEn6feJjeFkCTxkOwjzAZ G58au0KIe7jgCaHXp6XndnaYO1NN2ZxXm4Yav3gpkZbSxZjQGny2YPbfkytf3QhEgum74w92Ntde3jKs k1xDnYTj7q0X2r6ykG8+ktbmLcmmGnW/AQgjefVMFm wpdnz2u9sPKzfb5gJmaKe7U3HIWT1V9OwFlf2+cpl5OHiEX+eF4cqoRzTqFvmASLq2fDDRNmUmJMUy3x closer [file] GJ8s2AYXGuOxRxMWT1SV+55I+13YJx5fZ01/Xe79PWt7ZV4sHcUMoQY9vMcOKvOMsNyG+Luis A/OO2ally [file] xhOzR1WjK+a/m2Axu1h9KpcbL6fepakIQnr6J/director of corporate communications/5f7/Qwv+1IGD1pZnYEGMXpF2mtMCxqLbtgSidfG [file] 91TCkELIwjRS6Z9L2fjk7bgHpWg6v5IxrA9/luis a+9w [file] tx8EWxZyaBGAyCxS3gxPIgJ3LkyMGfOrlUmLHmxm+Sarah Beth+DmhbioAmwnmTI3rJ7906bcA3Fv8uyG0eq0 [file] HARNESS INSPECTOR/XJMAoi4YqcOg3KiK1wMzK3TtJmNX4wc5dcLbM9U [file] 2BDO+closer on/lyGLiSSgE+M/tYTmXjLucZSVNWdyZE0CZhES7PzpJHU100QiJ8gdtZv1lpXvlYbXc57Dkeoc [file] ryGX9P8i99Jf7Vm/vQedRXCq5JlIVxLrOKP9vS525F/Wet Process Technician+MuFtX+dfNRGldKhMd5wl/xz4N1npznJlYm [file] tx0ejqQaEdT5k8ADBXf6p4+5Uue+gaMNkwgK3YIs1LSKQ5Rr2O91nmOeDRux/V3N0bp5bs+SENIOR CARE+Z1w0Y [file] Luis A+/fCXCTH03gjiVGr35v+q1kXhVyDYY+SmYDNcebMsUQFrrvQ/5Vn/4xFzOq0uPrDy2lM7RT5Ysvvt pcIY4bq47K2a3EoN57PED50I4CAcgj/9zS9tpIky5Wp0WMbQHifCZbjmOmSCYbsehEIXfmicRFQPDknV LMpFvjLcim/Jkc+wruAnwwZFeuV5F5t1d+F/jXSW75 closer on/P7+7GjG0uZa9RkRjOMH6wk1de8oHb2X0wpt7U8iunE3woOxb5XL0rxROjLRGu34qAU6/mZpsrZuRE 4d/DiPIKeuq5SZUaiZGAaOaplQn6q8IqeW8E1R2olqhvK9ldvYoo53omM/+cV71yJXKH8nc7GvlNeJ [file] um7/+cDzuBHdcgs+[place]+mczQXESYa2Zodd8OM5Y8z/owt2ymjwjGzRvAwfU+sQHAYHQSdoqgZ1cmeH4 [file] Agent+o/ [file] 7O65eZfckamz5R7OcgeSh2WTlJzZGE/animal therapist/FmSxwvMXlRSFIuAY+LGthx+nJg6zRrgGr+Dgxs06ifg8o [file] Ángel/T4B4pvwCjrtyPEnPxUHGhfDKfxXXFZpLNquhUH9oBj1/LMWTHYdQ2EQUt2H9aUGue5PP1tXp6+J4 [file] XLehx6znEeTs0L3/vZ+veterinarian small animal/BE3w6YiAn+L/q+Hp2BX [file] lh02MgydhVTfk7jC1kToWoHdRgD1CilNMYsEQHUEjIt4/wXyXeqxO/IBNccwHCGaq4guJvZJY4Dp/collection supervisor [file] 5PSB1yz8WaLE5Rl4LauqQ3coKwHRfkITP8VsN1TVteDRAOLq== ID Date Data Source [id number] 08/16/2020 09:44:35 AM [facility] Name Value Range Interpretation Code Description Data Mahogany rce(s) Supporting Document(s) Progress Note [facility] SXAILx8cHnOFQyAa75/FSJqfSFWji3AsPKloPHr7LMwmZTNjB9RfAYB5hN2tTCG9WAtYSoUcCpMxRvR9 lbm IdFbqNDrIeYPHoOfgOLmCpGTnqPqoksBSwSX4StZV5ANRbL31mQNFgPDAgK4McCXQaBPE+Eo0ZXEQjcV XeIG7TUhhB6N2gd3xSOu4iwJ/POpMpA2KblhsPuaUwITlWXvc4KMnK/HRxSmleA3p6Shsdj564UI8CiA 1rnNxtRLUVhVUYsmaJuat8VxKJ//6tDgPPsiyV/9v8 GkRaDa/VH/+gmsccvXms+AC7QK6BTukT4VcBk4247IeRT+tfrmGzxFnaaL8htdH07PZq+XbfjhDR76M6 /kSdxcvlOLlVJ+ffo9D176nrUybS9qfLs2VhW+n1yP11SfjgriswAS+HxpTzhCd8jTuB0QFKtFFIGVm1 PV086iCT7e1QF7NIaP38F52nz4Mdkr3gtwxVej0KlU kSO9BdrwX6cWyRAOKn15U7tKnziHdUEk3O9aG+GDyKxHblF7nr0Tf++SR7kE8WOmGpJVjwdtX0fAlw [file] giRUdoRETPCy3G ID Date Data Source [id number] 07/11/2020 01:41:45 PM [facility] Name Value Range Interpretation Code Description Data Mahogany rce(s) Supporting Document(s) Progress Note [facility] XWPPCo1nUgKAQuRb50/KUIlgHEPzu7EeKCjfGPh0ZIfvLFIwQ7HrATF8xA6bIQR4FVqDNaUyKgYfBLCw lbm [file] ICAgICAgICAgICAgICAgICAgICAgICAgICAgICAgIC AgICAgICAgICAgICAgICAgICAgICAgICAgICAgICAgICAgICAgICAgICAgICAgICAgICAgICAgICAgIC NwWTSdDXCfFM0VOWXaGISaATHsYORcJCEkDLOvDBFwEDRjYGGsLIAzQNNaRWFvFNJbPNBwUFXnPHOcRR AgICAgICAgICAgICAgICAgICAgICAgICAgICAgICAg QWJuBTZtPCCoRQSbHQFjTJDlCY5CBAGiJVCyGXCfKSNuYPUvCIUaZLVsSAZdBHYxAJYgKEAtBSQuVHOw ICAgICAgICAgICAgICAgICAgICAgICAgICAgICAgICAgICAgICAgICAgICAgICAgICAgICAgICAgICAg NC2ZYTKwPGAtJMHyCOPrZNAuIUSmAZTcZCGxHIYdEI AgICAgICAgICAgICAgICAgICAgICAgICAgICAgICAgICAgICAgICAgICAgICAgICAgICAgICAgICAgIC AzABMvPRXeXRScFF7SLZYmWJXdHPCsMHBzDWVbRAEzFSKvHBSmFOGkASXiSRZvXZZgVRSiCHSjSNNoLT AgICAgICAgICAgICAgICAgICAgICAgICAgICAgICAg JBAeEOKbNMZfKBAuAJHpDZCbDWRtWE3VGPSaKMYbFTZhJFHtUTOtFWHrUYCyNIYzDMSwESLwIOMbAWSs ICAgICAgICAgICAgICAgICAgICAgICAgICAgICAgICAgICAgICAgICAgICAgICAgICAgICAgICAgICAg EQThVV7DZZQbQMArSTHeABFzKVChAQNvEVFcWHCfYM AgICAgICAgICAgICAgICAgICAgICAgICAgICAgICAgICAgICAgICAgICAgICAgICAgICAgICAgICAgIC FwDNWgTTDcWSRrYBClEK5ZUPAbOTFfEUXgGZOzLUJwROSxMFGpHARmUPIdXDJxRZAuIVSoVIQfXZOyFK AgICAgICAgICAgICAgICAgICAgICAgICAgICAgICAg YIYhRTWfSFMsWYDrSBThCTKwUPNnGFNlTW6HKJBgILVhZKNrZJRcROCdDZAiWDIeWFAnBEImYFGrDTQb ICAgICAgICAgICAgICAgICAgICAgICAgICAgICAgICAgICAgICAgICAgICAgICAgICAgICAgICAgICAg GCNfYGNbXW7FDZ61kFYdo0Y1MBHaGN1rghp/Pg0KDQ qimbUcfQAqQZ2VYjRqFW2iht7WAoGpJY4xzy2DUSqCUmBiF0A5zPLxOSCvHSEVVqKbI97bRPtkFj58SH kgHXBhZyHeONa0Wz4ZBpUwK5xgMIDoUkC1FXCoJeP8OFAfBvFzAHtxRJ7Ub9ZobUBnRSp+Gp9KSD8tj1 KlCPtuGDSxRU3luu4RCHrQFuGvI0BinzU1IUTjARKf Zi8DLCMdJHDoySQpFsNyFQIMFrJwM6SkfH79UKXKMt9+AOxfqnUxQlvTFeMsNSDpq4LcFVw6SR5GDYMr LAq9cIYaGBHsF0Isn5PbKf71POEbAyycMcjnzMHwOTPFUHcloSxkjEcoFYRdDAHfNN9lOw3gLIRvZKJj BuNwOMWVQE3UFKPnUCQntLZtKCKkKNNMCH7YJHfnGR U3DHKklbRfaKOlUSsnMJ1GLPXnqvQfLkVsYWZMWSp+Nj1PIM9xn3HmVEcmNoGzRN0yei6TYOuJMgPjM0 N4qAIyP9B1AUutBb3GYBYcRTZlCAlrXCXQPFzbRX5XCV6fsrY9CU8EfQDrNBBeHTKyuNZaGOi5K16pqX LoUHyiVJ1WJMB+Bear+Lo0SEFAjXDQrSZSyFmKrZXYQ HsBxU6KoG7DYe6CyP8XjGE52fSfdxmWfAXgeMD6ZID3bUKNpPAHDDO7AmTSmcQ2ctsTcUHQoJAYJMmZb P19hfPOzXDNiKJJxCMYhEc3AYEScO7VguxNevBselhYpNZGwLTIGVS6QFJneawZtjNMikCryFJ74cMjb GH8RId5CSpFhTE5erk6HnVCwHy8XJCDwPM0QDJIkYU MtOOEuHVV3LZPiYpFfNQbdMZViTXZrKXB6IBNdBHQaBF9UMcPdMFRlAzA7EQZdKGHmYXNwby1AAFQlAX FrKqQ6TDFiTBTpBRZrXUlwKDMyEICoSDQ7MUQiGFLgBD9MMoFvAZVcLHH4ReVpNFCiCWEodp2WIZUfKO XzDqc0UUXaCFMsBWNjXZrfYPFyFAA0YxWqTPIeOKFt MP5MDlPaQRMkTVW3HOatYLSgUJRnjh0VUDNePHLsVsP4ReMkFSRaXBQdJNdqTTUjRWM8TjBiQBZhRFIs LU3TDrJcFJUgQKm3YUDuXBPyVIUpjd3IGGHgTYYuCXpaFaOcOJCyUVCtUUrjESAsUGM5CRX9MSGtPXDw LC6PGwFzUEYjEGbhKQNhPCTvQMCxil6IQQQgWGZnYZ K1GwBwDEAiAHVmKSxsDONgGAHiRATpPLNdJJKwWD3ESdStJSZtYwLpAbXaCUCrACGyes8VDQKeEPYqTA QnIbWlSVIqUDDuHDtaEIEuNRCkEHV0EIIgXCVsXQ0BXrAiLRLzPcJ1LWaeAASmFXMosj7EEYVvEGZxHw ClFkCdTAQgHEZpZVufLGYrHITsYpm5LOPoQABoDF7K UyUkCAYlCfA4EuXmAWNkCJAuav7PiBDwgBpelc8JMAoRIh7LwTdbNMO7WYjfIs3ehRBuZqBmELMEXr1D olXdYFNwBKBZTStvJAEoXXG7NFshRXUbDBDfISKhIXM3YZJgCsBvEWU9XLtiUGKxZeE2TCVyITN7LpTh BeCeSGJ1OBDnXLLrZsFtQTkuQOMeT6Y+DR8dZMd+Uy0Xk6SonqV0ifUuSPnxXow1PA6KANXFI3VPNw== ID Date Data Source [id number] 06/09/2020 02:42:24 PM [facility] Name Value Range Interpretation Code Description Data Mahogany rce(s) Supporting Document(s) Progress Note [facility] GSZHIs9qYoWUPdNw56/IIPeeUZFnj9TxMAizLGf9ZUqhQJNcZ2WtRFO0vK8mTYY6MMzCKwCvSnZoCyVb lbm [file] AgICAgICAgICAgICAgICAgICAgICAgICAgICAgICAgICAgICAgICAgICAgICAgICAgICAgICAgICAgIC AgICAgICAgICAgICAgICAgICANCiAgICAgICAgICAg ICAgICAgICAgICAgICAgICAgICAgICAgICAgICAgICAgICAgICAgICAgICAgICAgICAgICAgICAgICAg ICAgICAgICAgICAgICAgICAgICAgICAgICAgICANCiAgICAgICAgICAgICAgICAgICAgICAgICAgICAg ICAgICAgICAgICAgICAgICAgICAgICAgICAgICAgIC AgICAgICAgICAgICAgICAgICAgICAgICAgICAgICAgICAgICAgICANCiAgICAgICAgICAgICAgICAgIC AgICAgICAgICAgICAgICAgICAgICAgICAgICAgICAgICAgICAgICAgICAgICAgICAgICAgICAgICAgIC AgICAgICAgICAgICAgICAgICAgICANCiAgICAgICAg ICAgICAgICAgICAgICAgICAgICAgICAgICAgICAgICAgICAgICAgICAgICAgICAgICAgICAgICAgICAg ICAgICAgICAgICAgICAgICAgICAgICAgICAgICAgICANCiAgICAgICAgICAgICAgICAgICAgICAgICAg ICAgICAgICAgICAgICAgICAgICAgICAgICAgICAgIC AgICAgICAgICAgICAgICAgICAgICAgICAgICAgICAgICAgICAgICAgICANCiAgICAgICAgICAgICAgIC AgICAgICAgICAgICAgICAgICAgICAgICAgICAgICAgICAgICAgICAgICAgICAgICAgICAgICAgICAgIC AgICAgICAgICAgICAgICAgICAgICAgICANCiAgICAg ICAgICAgICAgICAgICAgICAgICAgICAgICAgICAgICAgICAgICAgICAgICAgICAgICAgICAgICAgICAg ICAgICAgICAgICAgICAgICAgICAgICAgICAgICAgICAgICANCiAgICAgICAgICAgICAgICAgICAgICAg ICAgICAgICAgICAgICAgICAgICAgICAgICAgICAgIC AgICAgICAgICAgICAgICAgICAgICAgICAgICAgICAgICAgICAgICAgICAgICANCiAgICAgICAgICAgIC AgICAgICAgICAgICAgICAgICAgICAgICAgICAgICAgICAgICAgICAgICAgICAgICAgICAgICAgICAgIC AgICAgICAgICAgICAgICAgICAgICAgICAgICANCjw/ xJZgF8ueiUHexoZ8O9qgFi9REh4EXD6wb8LxCLHiLRqtqjFwPcjKFpVeWTPzCzpHCrq1NAnxRY1SpTNk U4ElL2QtFFtbBX9BGPFhVGRkxUYkHLNtOYRfZiM8MIYrKSxbUB9IeGNqRMofCXMvWVKwSeMsSEQyYRSe DLLlAO7NAGSkK557qpCfNj9DMk7KYpYmRW3ivc8JLq QyNMJqXakHIde7WHzmES3MjBGpsURzWFBrWIPLJrGpV5ohn3LuQcVrAYMPXEslPB9Mo3LvoPOpITu+Pg 1ZFZ6qn4IqDTzkMIJcIX9rtv8MTIhJXtYxW2BrtTabAVGzm6fiDPEeHN7egTDjEKK2WLIbE4fmilPiYJ EJTCamDWmeRH7XMYM9WFHjLwRiYeGpFtKmATC5UQCg ZY7iCYmiGG5TRPM4GDlrTNUkYDKbC0sZNaHcRBY0GeMpoAimUK4SUeNmD6KbfoAyuDMjPnRcMSVBPi1+ BVouzkXtMktJDmS8AOAxr1NeHIu6ZM3LCUUuKFodGQ4ZWIGinP7zZLqxVD0AMbZiVDQeCWNQVeLaF15c pZBjHEb1S3RoTzLiDPLcTwgcUTOxMPvkWaLdSYYdMo BdDQogID4+ID4+ROxcBY1UNBbkxhQsDAOdYy3RGGCkTIUvQP2rSYUvBTUpQ0H5nEksWCSRZhCjU6gjah rlCE4ePTPoR407lJtakpXbAHXmLWMuYx9CCXWcYFS1VTGqnZZaYpDeBEQLVVodMM8MmNGbBAY0wS6pDF qiYEHeITMlI8aWHrKmpDmiKJ37pOnilsXgpNHrJUg+ In7WIP7hk1ZvCWa2xqPrXFhpKUX3VLzvPETrLTWtPHPyMZS1VLZ8LJBRUcClYUVzLKWnMCytLCGjITVb ou4BPEKrAZSmXhC2EIMmKAOwYESmCTehREHdOEE9RPi3LURdQGEcQB1DRuWtQVIlODYzIDpgRGUkCIZf eo9ZLVJvHYXhSyv7TDBaHZTdGHLzNJmlNEFeEJLjBC Z6ZWUrKECbQR4RZiFtXLCaEFntVyciBFOiONApcd0JHXWfNDAdDuF4YuCwUPZxWLErCIlyTRPePDK1Yy f8OJOzRDZfCU4ZApUpXWVbSKh9ARGsBDFqUZMkdg2KNVPkYIKtGCK1ZjQgZEKjBQPkFJcbDRJcMWP2Fm LvEMXoQJNySI4JPlSlSBJqMGz7HkGkFANjOTPdno4Z QBPvGUOuPCf8PzXxNXYjKOJaXOpuGRVnFFQkEYp6GACzUDKgSP8KKxJtMXYyOXLxOTTsNDGgMSBtdl9Z GUHsAMQyThUgHoKiOOEvXHSpLHktEZFeVRVySNQvIBZtTAOwVY0WGkFwGHXqKuUdVyUdIQSsAPJltd2N NBTrEANmXmGyXsVxUYZnXRXeAGttGMGoVETqALA6QO TuIVHeOW3PJfBkPXTiSsW2LIvzRKXsWVSjyp9NYSHhRPSfXCT1OECiVYHhIBPiMSoqFJMqXSF5OaduNV AlKLBxVV5KKuTiMDXhRzO0NtViXXIiSAZouk8GqPWicQakrr7SJLjIEh9YfDdcUGC8AHvwZd9mqSDsYS AfJGUAIt8TbvXxQSAsFZFGLVouSOAgZJR0KTcrJLOi VJnnKzY5AOD9LzwnRtYzIKRgGzB6Qoa5SyY3MKJfCNYcAoV0ULRhVSRzGWRbXkNrPTOiOxQmQWawFdJ+ ZA9vDLu+Ho8Mx3DmcaP6lrFaINzoKCg2Gq6KJSMEW7PKNz== ID Date Data Source [id number] 06/05/2020 12:32:26 PM [facility] Name Value Range Interpretation Code Description Data Mahogany rce(s) Supporting Document(s) Progress Note [facility] YHMFJc4gAnNBRyBj61/GJQqwPLQuv7HmIVfzPYf9MHgqQIPuJ3QhKJR9uY9mXIB4ETjCOfEgLtIcTjG5 lbm [file] T0YNCg== ID Date Data Source [id number] 06/05/2020 12:32:00 PM EST [facility] Name Value Range Interpretation Code Description Data Mahogany rce(s) Supporting Document(s) SARS-CoV-2 RNA [facility] This lab was ordered by [facility] and reported by [facility]. ID Date Data Source [id number] 06/06/2020 06:27:19 AM [facility] Name Value Range Interpretation Code Description Data Mahogany rce(s) Supporting Document(s) Specimen source [Identifier] of Unspecified specimen [facility] SARS-CoV-2 RNA 2018 nCoV Real-Time RT-PCR: NOT DETECTED [facility] Assay Performed 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 [facility] Patient has symptoms related to [facility] When did you start to experience these symptoms [Date and time] [Phen X] [facility] Patient was hospitalized because of this condition [facility] patient was admitted to ICU for condition [facility] Patient resides in a congregate care setting [facility] status [facility] ID Date Data Source [id number] 03/21/2020 11:09:23 AM EDT [facility] Name Value Range Interpretation Code Description Data Mahogany rce(s) Supporting Document(s) Progress Note [facility] SCYBSg1aQkEUXoUt80/MMTpeTRYce9JzXTcsMKo5UBvaYJYxR5EhXXP8gT3kULI7JYnZOqHjReVsTTWf lbm [file] [id number] ID Date Data Source [id number] 03/21/2020 09:52:29 AM EDT [facility] CT MAXILLOFACIAL WITHOUT CONTRAST [id number] INAL RESULTInterpreted by:Rachael Rodriguez MDHISTORY: Chronic maxillary [...] (finding) completed Current drinker of alcohol (finding) [facility] Tobacco use and exposure 12/19/2020 12:00:00 AM EDT Never used co mpleted Never used [facility] Smoking 12/19/2020 12:00:00 AM EDT Never smoker completed Never s [facility] Alcohol intake 11/17/2020 12:00:00 AM EDT Current drinker of al cohol (finding) completed Current drinker of alcohol (finding) [facility] Smoking 11/16/2020 12:00:00 AM EDT Never Smoker completed Never S moker eCW1 ([facility]) Smoking 11/16/2020 12:00:00 AM EDT Never Smoker completed Never S moker eCW1 ([facility]) Smoking 11/16/2020 12:00:00 AM EDT Never Smoker completed Never S moker eCW1 ([facility]) Smoking 11/16/2020 12:00:00 AM EDT Never Smoker completed Never S moker eCW1 ([facility]) Smoking 11/16/2020 12:00:00 AM EDT Never Smoker completed Never S moker eCW1 ([facility]) Smoking 11/16/2020 12:00:00 AM EDT Never Smoker completed Never S moker eCW1 ([facility]) Smoking 10/05/2020 12:00:00 AM EDT Never Smoker completed Never S moker eCW1 ([facility]) Smoking 10/05/2020 12:00:00 AM EDT Never Smoker completed Never S moker eCW1 ([facility]) Alcohol intake 08/16/2020 12:00:00 AM EST Current drinker of al cohol (finding) completed Current drinker of alcohol (finding) [facility] Alcohol intake 07/11/2020 12:00:00 AM EST Current drinker of al cohol (finding) completed Current drinker of alcohol (finding) [facility] Alcohol intake 06/09/2020 12:00:00 AM EST Current drinker of al cohol (finding) completed Current drinker of alcohol (finding) [facility] Alcohol intake 03/21/2020 12:00:00 AM EDT Current drinker of al cohol (finding) completed Current drinker of alcohol (finding) [facility] Vital Signs ID Date Data Source UNK Name Value Range Interpretation Code Description Data Source(s) Systolic blood pressure 112 mm[Hg] 112 mm[Hg] [facility] Diastolic blood pressure 60 mm[Hg] 60 mm[Hg] [facility] Heart rate 52 /min 52 /min [facility] Respiratory rate 18 /min 18 /min [facility] Body height 185.4 cm 185.4 cm [facility] Body weight 107.865 kg 107.865 kg [facility] Body mass index (BMI) [Ratio] 31.37 kg/m2 31.37 kg/m2 [facility] Oxygen saturation in Arterial blood by Pulse oximetry 94 % 94 % [facility] Body height 74 [in_i] 74 [in_i] eCW1 ([facility]) Body weight 237 [lb_av] 237 [lb_av] eCW1 ([facility]) Body mass index (BMI) [Ratio] 30.43 kg/m2 30.43 kg/m2 [facility] ([facility]) Heart rate 62 /min 62 /min eCW1 ([facility]) Respiratory rate 18 /min 18 /min eCW1 ([facility]) Body temperature 97.8 [degF] 97.8 [degF] eCW1 ( [facility]) Systolic blood pressure 119 mm[Hg] 119 mm[Hg] e CW1 ([facility]) Diastolic blood pressure 85 mm[Hg] 85 mm[Hg] eCW1 ([facility]) Body weight 245 [lb_av] 245 [lb_av] eCW1 ([facility]) Heart rate 72 /min 72 /min eCW1 ([facility]) Respiratory rate 18 /min 18 /min eCW1 ([facility]) Body temperature 97.7 [degF] 97.7 [degF] eCW1 ( [facility]) Systolic blood pressure 110 mm[Hg] 110 mm[Hg] e CW1 ([facility]) Diastolic blood pressure 77 mm[Hg] 77 mm[Hg] eCW1 ([facility]) Body height 74 [in_i] 74 [in_i] eCW1 ([facility]) Body mass index (BMI) [Ratio] 31.45 kg/m2 31.45 kg/m2 W1 ([facility]) ID Date Data Source [id number] 12/19/2020 02:02:04 PM EDT [facility] Name Value Range Interpretation Code Description Data Source(s) PREFERRED NAME [facility] ID Date Data Source [id number] 08/16/2020 09:44:35 AM [facility] Name Value Range Interpretation Code Description Data Source(s) PREFERRED NAME [facility] PREFERRED NAME [facility] ID Date Data Source [id number] 07/11/2020 01:41:45 PM [facility] Name Value Range Interpretation Code Description Data Source(s) PREFERRED NAME [facility] PREFERRED NAME [facility] ID Date Data Source [id number] 06/09/2020 03:48:17 PM [facility] Name Value Range Interpretation Code Description Data Source(s) PREFERRED NAME [facility] PREFERRED NAME [facility] ID Date Data Source [id number] 06/06/2020 06:27:25 AM [facility] Name Value Range Interpretation Code Description Data Source(s) PREFERRED NAME [facility] PREFERRED NAME [facility] Patient Treatment Plan of Care Planned Activity Planned Date Details Description Data Source (s) 24 HR metoprolol succinate 25 MG Extended Release Oral Tablet 11/17/2020 12:00:00 AM [facility] Colchicine 0.6 MG Oral Capsule 10/06/2020 12:00:[address] [facility] Allopurinol 300 MG Oral Tablet 10/03/2020 12:00:[address] [facility] atorvastatin 80 MG Oral Tablet 07/18/2020 12:00:00 AM [facility] 24 HR metoprolol succinate 50 MG Extended Release Oral Tablet 07/04/2020 12:00:00 AM [facility] Ramipril 5 MG Oral Capsule 07/04/2020 12:00:00 AM [facility] 24 HR metoprolol succinate 50 MG Extended Release Oral Tablet 07/04/2020 12:00:00 AM [facility] Diazepam 5 MG Oral Tablet 06/08/2020 12:00:00 AM [facility] Acetaminophen 325 MG / Hydrocodone Bitartrate 5 MG Ora l Tablet 06/07/2020 12:00:00 AM [facility] ospital Amoxicillin 875 MG / Clavulanate 125 MG Oral Tablet 06/07/20 12:00:00 AM [facility] cetirizine hydrochloride 10 MG Oral Tablet 03/31/2020 12:00:00 AM E DT eCW1 ([facility]) cetirizine hydrochloride 10 MG Oral Tablet 03/31/2020 12:00:00 AM E DT eCW1 ([facility]) cetirizine hydrochloride 10 MG Oral Tablet 03/31/2020 12:00:00 AM E DT eCW1 ([facility]) 24 HR metoprolol succinate 50 MG Extended Release Oral Tablet 03/14/2020 12:00:00 AM [facility] ospital cetirizine hydrochloride 10 MG Oral Tablet 11/17/2019 12:00:00 AM E DT [facility] Azelastine HCl 137 MCG/SPRAY SOLN 06/07/2019 12:00:00 AM EST [facility] Loratadine 10 MG Oral Tablet 07/09/2018 12:00:00 AM EST [facility] Ergocalciferol 400 UNT Oral Tablet 12/02/2016 12:00:00 AM EDT [facility] fluticasone (FLONASE) 50 MCG/ACT nasal spray 12/25/2014 12:00:00 AM EDT [facility] Omeprazole 20 MG Delayed Release Oral Tablet 07/25/2011 12:00:00 AM [facility] 60 ACTUAT formoterol fumarate 0.005 MG/A CTUAT / mometasone furoate 0.1 MG/ACTUAT Metered Dose Inhaler [facility]
--- NOTE | 2021-05-17 15:56 | REP ---
INDICATION: urinary retention, pain in bladder COMPARISON: None TECHNIQUE: Real time B-mode ultrasound examination using curved array transducer. FINDINGS: The prostate gland is enlarged and measures 6.3 x 5.7 x 6.1 cm (115 cc) causing mass effect on the base of the bladder. The bladder itself is unremarkable and currently measures 6.6 x 5.3 x 6.4 cm (146 cc). IMPRESSION: 1. Enlarged prostate gland with mass effect on the base of the bladder. <Electronically signed by Federico Higuera > 05/17/21 [id number]
[2021-05-17] MEDS ORDERED: FLOM0.4C39 PO (16:14)
[2021-05-17 16:34] VITALS: BP 142/91
== END 2021-05-17 16:37 | disposition home or self-care (01) ==
LOC: M ED 10:27
DX: N40.1 Benign prostatic hyperplasia with lower urinary tract symptoms (principal); R33.9 Retention of urine, unspecified; I25.10 Atherosclerotic heart disease of native coronary artery without angina pectoris; I25.2 Old myocardial infarction; I10 Essential (primary) hypertension; E78.5 Hyperlipidemia, unspecified; M10.9 Gout, unspecified; Z79.899 Other long term (current) drug therapy

== ENCOUNTER → 2021-05-22 | Outpatient (REF) | payer BC ==
[~2021-05-22] MED LIST changes: +FLOM0.4C39 PO; +LEVO500T3
[2021-05-23 23:07] LABS: PSA % FREE 21.4 % (.); PSA FREE 1.09 ng/mL; PSA TOTAL 5.1 ng/mL (0.0-4.0)
== END ==
LOC: M SFHCCLAY 09:04
PROVIDERS: ATTEND Physician Assistant
DX: N40.1 Benign prostatic hyperplasia with lower urinary tract symptoms (principal)

== ENCOUNTER → 2021-06-13 | Outpatient (CLI) | payer BC | LOC: M PLALAB 13:49 | PROVIDERS: ATTEND Physician Assistant | DX: N40.1 Benign prostatic hyperplasia with lower urinary tract symptoms (principal) ==

== ENCOUNTER → 2021-07-25 | Outpatient (CLI) | payer BC ==
[~2021-07-25] MED LIST changes: -LEVO500T3; +LEVO500T4
== END ==
LOC: M RAD 10:35
DX: R05.9 Cough, unspecified (principal)

== ENCOUNTER → 2021-08-24 | Outpatient (REF) | payer BC ==
[2021-08-24 14:03] LABS: APPEARANCE, URINE MANUAL CLEAR (CLEAR); BILIRUBIN, URINE MANUAL NEGATIVE (NEGATIVE); BLOOD URINE MANUAL NEGATIVE (NEGATIVE); COLOR, URINE MANUAL LT YELLOW (YELLOW); GLUCOSE, URINE (UA) MANUAL NEGATIVE (NEGATIVE); KETONE, URINE MANUAL NEGATIVE (NEGATIVE); LEUKOCYTE ESTERASE, URINE MAN NEGATIVE (NEGATIVE); NITRITE, URINE MANUAL NEGATIVE (NEGATIVE); PROTEIN, URINE MANUAL NEGATIVE (NEGATIVE); SPECIFIC GRAVITY,URINE MANUAL 1.005 (1.002-1.035); UROBILINOGEN, URINE MANUAL NORMAL (NORMAL)
== END ==
LOC: M SMT 12:46
PROVIDERS: ATTEND Nurse Practitioner Women's Health
DX: R30.0 Dysuria (principal)

== ENCOUNTER → 2021-11-06 | Outpatient (CLI) | payer BC | LOC: M CLY 13:35 | PROVIDERS: ATTEND Physician Assistant | DX: S99.921A Unspecified injury of right foot, initial encounter (principal); X58.XXXA Exposure to other specified factors, initial encounter; Y92.9 Unspecified place or not applicable; Y93.9 Activity, unspecified; Y99.9 Unspecified external cause status ==

== ENCOUNTER → 2021-11-20 | Outpatient (REF) | payer BC ==
[2021-11-20 11:29] LABS: HEMATOCRIT 40.2 % (42.0-52.0); HEMOGLOBIN 13.4 g/dl (13.5-17.5); MEAN CORPUSCULAR HEMOGLOBIN 30.9 pg (27.0-33.0); MEAN CORPUSCULAR HGB CONC 33.3 g/dl (32.0-36.5); MEAN CORPUSCULAR VOLUME 92.8 fl (80.0-96.0); PLATELET COUNT, AUTOMATED 118 10^3/uL (150-450); RED BLOOD COUNT 4.33 10^6/uL (4.30-6.10); WHITE BLOOD COUNT 4.5 10^3/uL (4.0-10.0)
[2021-11-20 12:20] LABS: ALBUMIN 3.9 GM/DL (3.2-5.2); ALT/SGPT 46 U/L (12-78); BILIRUBIN,TOTAL 1.3 MG/DL (0.2-1.0); BLOOD UREA NITROGEN 14 MG/DL (7-18); CALCIUM LEVEL 9.4 MG/DL (8.5-10.1); CARBON DIOXIDE LEVEL 25 MEQ/L (21-32); CHLORIDE LEVEL 108 MEQ/L (98-107); CHOLESTEROL LEVEL 119 MG/DL (<200); CHOLESTEROL RISK RATIO 2.531 (<5); CREATININE FOR GFR 0.93 MG/DL (0.70-1.30); GLOMERULAR FILTRATION RATE > 60.0 (>56); GLUCOSE, FASTING 88 MG/DL (70-100); HDL CHOLESTEROL 47 MG/DL (>40); LDL CHOLESTEROL 15 MG/DL (<100); NON-HDL-C 72 MG/DL; POTASSIUM SERUM 4.3 MEQ/L (3.5-5.1); SODIUM LEVEL 140 MEQ/L (136-145); TOTAL PROTEIN 6.7 GM/DL (6.4-8.2); TRIGLYCERIDES LEVEL 283 MG/DL (<150); URIC ACID 3.6 MG/DL (3.5-7.2)
== END ==
LOC: M SFHCCLAY 07:58
PROVIDERS: ATTEND Family Medicine
DX: N40.1 Benign prostatic hyperplasia with lower urinary tract symptoms (principal); Z95.5 Presence of coronary angioplasty implant and graft; M10.9 Gout, unspecified; M72.0 Palmar fascial fibromatosis [Dupuytren]; H69.81 Other specified disorders of Eustachian tube, right ear; B35.1 Tinea unguium; L85.3 Xerosis cutis

== ENCOUNTER → 2022-03-14 | Outpatient (CLI) | payer BC ==
[~2022-03-14] MED LIST changes: +LEVO1TAB39; -LEVO500T4
[2022-03-15 12:08] LABS: TESTOSTERONE FREE (DIRECT) 10.7 pg/mL (7.2-24.0)
== END ==
LOC: M LAB 07:51
PROVIDERS: ATTEND Urology
DX: R68.82 Decreased libido (principal)

== ENCOUNTER → 2022-06-18 | Outpatient (CLI) | payer BC | LOC: M SOG 08:42 | PROVIDERS: ATTEND Orthopaedic Surgery Hand Surgery | DX: M79.644 Pain in right finger(s) (principal); M79.641 Pain in right hand; M79.642 Pain in left hand ==

== ENCOUNTER → 2022-08-27 | Outpatient (CLI) | payer BC ==
[~2022-08-27] MED LIST changes: +ALLO300T2 PO; -ATOR80TA59; +ATOR80TA59 PO; +AZEL1SPR3 NARES; +BAYE81TA10 PO; +FINA5TAB2 PO; +METO1TAB32 PO; +MOME50SP2; +OMEP-173 PO; +RAMI1CAP22 PO; +TADA20TA PO; +TAMS1CAP17 PO
== END ==
LOC: M LABSMTC 07:36
PROVIDERS: ATTEND Anesthesiology
DX: Z01.812 Encounter for preprocedural laboratory examination (principal)

== ENCOUNTER 2022-08-30 06:05 | Day surgery (SDC) | payer BC ==
[~2022-08-30] VITALS: Ht 188 cm; Wt 111.6 kg
[~2022-08-30 06:05] MED LIST changes: +LIDOCAINE W/EPINEPHRINE 1% 20ML VIAL XX ONE; +SODIUM BICARBONATE 8.4% INJ 50MEQ 50ML VIAL XX ONE
[2022-08-30] MEDS ORDERED: POLYSPORIN TOPICAL OINTMENT 15GM As Ordered ONE (07:16)
[2022-08-30 08:17] VITALS: BP 146/87
== END 2022-08-30 08:25 | disposition home or self-care (01) ==
LOC: M SDC 06:05
PROVIDERS: ATTEND Orthopaedic Surgery Hand Surgery
DX: M24.541 Contracture, right hand (principal); I10 Essential (primary) hypertension; M10.9 Gout, unspecified; Z98.61 Coronary angioplasty status; I25.2 Old myocardial infarction; K21.9 Gastro-esophageal reflux disease without esophagitis; G47.33 Obstructive sleep apnea (adult) (pediatric); Z79.899 Other long term (current) drug therapy

== ENCOUNTER → 2022-11-08 | Outpatient (CLI) | payer BC ==
[~2022-11-08] MED LIST changes: -LIDOCAINE W/EPINEPHRINE 1% 20ML VIAL XX ONE; -SODIUM BICARBONATE 8.4% INJ 50MEQ 50ML VIAL XX ONE
[2022-11-08 13:42] LABS: BASO % 0.8 % (0.0-1.0); EOS # 0.2 10^3/uL (0.0-0.5); HEMATOCRIT 41.7 % (42.0-52.0); HEMOGLOBIN 13.8 g/dl (13.5-17.5); LYMPH # 1.3 10^3/uL (1.5-5.0); LYMPH % 26.3 % (24.0-44.0); MEAN CORPUSCULAR HEMOGLOBIN 31.5 pg (27.0-33.0); MEAN CORPUSCULAR HGB CONC 33.1 g/dl (32.0-36.5); MEAN CORPUSCULAR VOLUME 95.2 fl (80.0-96.0); MONO # 0.3 10^3/uL (0.0-0.8); MONO % 6.5 % (2.0-8.0); NEUTROPHILS # 3.2 10^3/uL (1.5-8.5); NEUTROPHILS % 62.4 % (36.0-66.0); PLATELET COUNT, AUTOMATED 109 10^3/uL (150-450); RED BLOOD COUNT 4.38 10^6/uL (4.30-6.10); WHITE BLOOD COUNT 5.1 10^3/uL (4.0-10.0)
[2022-11-08 13:49] LABS: ERYTHROCYTE SEDIMENTATION RATE 1 mm/hr (0-20)
[2022-11-08 13:59] LABS: URIC ACID 4.1 MG/DL (3.7-9.2)
[2022-11-08 14:02] LABS: ALKALINE PHOSPHATASE 111 U/L (46-116); ALT/SGPT 47 U/L (7.0-40); AST/SGOT 23 U/L (<34); BILIRUBIN,TOTAL 1.6 MG/DL (0.3-1.2); BLOOD UREA NITROGEN 15 MG/DL (9-23); C REACTIVE PROTEIN QUANTITATIV < 0.40 MG/DL (<1.0); CALCIUM LEVEL 8.6 MG/DL (8.3-10.6); CARBON DIOXIDE LEVEL 28 MMOL/L (20-31); CHLORIDE LEVEL 106 MMOL/L (98-107); CHOLESTEROL LEVEL 106 MG/DL (<200); CHOLESTEROL RISK RATIO 2.45 (<5); CREATININE FOR GFR 0.98 MG/DL (0.70-1.30); GLOMERULAR FILTRATION RATE > 60.0 (>49); GLUCOSE, FASTING 84 MG/DL (74-106); HDL CHOLESTEROL 43.2 MG/DL (>40); MAGNESIUM LEVEL 1.6 MG/DL (1.8-2.4); NON-HDL-C 62.8 MG/DL; POTASSIUM SERUM 3.9 MMOL/L (3.5-5.1); SODIUM LEVEL 142 MMOL/L (136-145); TOTAL PROTEIN 6.3 G/DL (5.7-8.2); TRIGLYCERIDES LEVEL 364 MG/DL (<150)
[2022-11-08 14:03] LABS: TOTAL 25(OH) VITAMIN D 40.7 NG/ML (20.0-100.0)
[2022-11-08 14:04] LABS: VITAMIN B12 LEVEL 415 PG/ML (211-911)
[2022-11-08 14:05] LABS: FERRITIN 196.9 NG/ML (10.5-307.3)
== END ==
LOC: M PLALAB 10:17
PROVIDERS: ATTEND Physician Assistant
DX: S80.861A Insect bite (nonvenomous), right lower leg, initial encounter (principal); W57.XXXA Bitten or stung by nonvenomous insect and other nonvenomous arthropods, initial encounter; R53.83 Other fatigue; M25.50 Pain in unspecified joint; M10.9 Gout, unspecified; E78.00 Pure hypercholesterolemia, unspecified; Z86.19 Personal history of other infectious and parasitic diseases; Y93.9 Activity, unspecified; Y99.9 Unspecified external cause status

== ENCOUNTER → 2022-11-27 | Outpatient (REF) | payer BC | LOC: M LABSMT 08:24 | PROVIDERS: ATTEND Urology | DX: Z53.9 Procedure and treatment not carried out, unspecified reason (principal) ==

== ENCOUNTER → 2023-05-05 | Outpatient (CLI) | payer BC ==
[~2023-05-05] MED LIST changes: +MECL-209 PO; -MECL1TAB31 PO
[2023-05-05 08:45] LABS: BASO % 0.7 % (0.0-1.0); EOS # 0.1 10^3/uL (0.0-0.5); EOS % 2.4 % (0.0-3.0); HEMATOCRIT 41.4 % (42.0-52.0); HEMOGLOBIN 13.9 g/dl (13.5-17.5); LYMPH % 23.2 % (24.0-44.0); MEAN CORPUSCULAR HEMOGLOBIN 31.6 pg (27.0-33.0); MEAN CORPUSCULAR HGB CONC 33.6 g/dl (32.0-36.5); MEAN CORPUSCULAR VOLUME 94.1 fl (80.0-96.0); MONO # 0.3 10^3/uL (0.0-0.8); NEUTROPHILS # 2.8 10^3/uL (1.5-8.5); WHITE BLOOD COUNT 4.2 10^3/uL (4.0-10.0)
[2023-05-05 08:52] LABS: HEMOGLOBIN A1c 4.2 % (4.0-6.0)
[2023-05-05 09:13] LABS: PLATELET COUNT, AUTOMATED 99 10^3/uL (150-450)
[2023-05-05 09:14] LABS: CHOLESTEROL RISK RATIO 2.56 (<5); HDL CHOLESTEROL 43.6 MG/DL (>40); LDL CHOLESTEROL 26.6 MG/DL (<100); NON-HDL-C 68.4 MG/DL
== END ==
LOC: M LAB 08:09
PROVIDERS: ATTEND Family Medicine
DX: E78.5 Hyperlipidemia, unspecified (principal); D59.6 Hemoglobinuria due to hemolysis from other external causes; I10 Essential (primary) hypertension

== ENCOUNTER → 2023-09-05 | Outpatient (REF) | payer BC | LOC: M SFHCDERM 18:13 | PROVIDERS: ATTEND Nurse Practitioner Family | DX: D48.9 Neoplasm of uncertain behavior, unspecified (principal) ==

== ENCOUNTER → 2023-11-28 | Outpatient (CLI) | payer BC ==
[~2023-11-28] MED LIST changes: -RAMI1CAP22 PO; -RAMI1CAP24; +RAMI2.5C42 PO; +RAMI5CAP60
[2023-11-29 19:06] LABS: PSA TOTAL 3.2 ng/mL (0.0-4.0)
== END ==
LOC: M LAB 08:19
PROVIDERS: ATTEND Urology
DX: N40.1 Benign prostatic hyperplasia with lower urinary tract symptoms (principal); Z87.898 Personal history of other specified conditions

== ENCOUNTER → 2023-12-31 | Outpatient (CLI) | payer BC ==
[2024-01-02 13:52] LABS: PSA TOTAL 1.1 ng/mL (< OR = 4.0)
== END ==
LOC: M LAB 09:06
PROVIDERS: ATTEND Urology
DX: R97.20 Elevated prostate specific antigen [PSA] (principal)

== ENCOUNTER → 2024-03-04 | Outpatient (REF) | payer BC ==
[2024-03-04 17:16] LABS: BASO % 0.5 % (0.0-1.0); EOS # 0.1 10^3/uL (0.0-0.5); EOS % 1.7 % (0.0-3.0); HEMATOCRIT 42.1 % (42.0-52.0); HEMOGLOBIN 14.4 g/dl (13.5-17.5); LYMPH % 17.2 % (24.0-44.0); MEAN CORPUSCULAR HEMOGLOBIN 32.4 pg (27.0-33.0); MEAN CORPUSCULAR HGB CONC 34.2 g/dl (32.0-36.5); MEAN CORPUSCULAR VOLUME 94.6 fl (80.0-96.0); MONO # 0.4 10^3/uL (0.0-0.8); MONO % 7.4 % (2.0-8.0); NEUTROPHILS # 4.2 10^3/uL (1.5-8.5); NEUTROPHILS % 72.7 % (36.0-66.0); PLATELET COUNT, AUTOMATED 112 10^3/uL (150-450); RED BLOOD COUNT 4.45 10^6/uL (4.30-6.10); WHITE BLOOD COUNT 5.8 10^3/uL (4.0-10.0)
[2024-03-04 17:19] LABS: BLOOD UREA NITROGEN 13 MG/DL (9-23); CALCIUM LEVEL 9.3 MG/DL (8.3-10.6); CARBON DIOXIDE LEVEL 28 MMOL/L (20-31); CHLORIDE LEVEL 106 MMOL/L (98-107); CREATININE FOR GFR 0.98 MG/DL (0.70-1.30); GLOMERULAR FILTRATION RATE > 60.0 (>49); GLUCOSE, FASTING 84 MG/DL (74-106); POTASSIUM SERUM 4.2 MMOL/L (3.5-5.1); SODIUM LEVEL 139 MMOL/L (136-145)
[2024-03-04 17:32] LABS: HEMOGLOBIN A1c 4.4 % (4.0-6.0)
== END ==
LOC: M SFHCCLAY 10:27
PROVIDERS: ATTEND Family Medicine
DX: I10 Essential (primary) hypertension (principal); M10.9 Gout, unspecified; D69.6 Thrombocytopenia, unspecified; E78.00 Pure hypercholesterolemia, unspecified; Z28.21 Immunization not carried out because of patient refusal

== ENCOUNTER → 2024-09-09 | Outpatient (CLI) | payer BC ==
[2024-09-09 08:37] LABS: BASO % 0.9 % (0.0-1.0); EOS # 0.2 10^3/uL (0.0-0.5); EOS % 3.4 % (0.0-3.0); HEMATOCRIT 39.9 % (42.0-52.0); HEMOGLOBIN 13.7 g/dl (13.5-17.5); LYMPH % 22.1 % (24.0-44.0); MEAN CORPUSCULAR HEMOGLOBIN 32.5 pg (27.0-33.0); MEAN CORPUSCULAR HGB CONC 34.3 g/dl (32.0-36.5); MEAN CORPUSCULAR VOLUME 94.8 fl (80.0-96.0); MONO # 0.3 10^3/uL (0.0-0.8); MONO % 6.2 % (2.0-8.0); NEUTROPHILS # 2.9 10^3/uL (1.5-8.5); PLATELET COUNT, AUTOMATED 122 10^3/uL (150-450); RED BLOOD COUNT 4.21 10^6/uL (4.30-6.10); WHITE BLOOD COUNT 4.4 10^3/uL (4.0-10.0)
[2024-09-09 09:01] LABS: ALKALINE PHOSPHATASE 95 U/L (40-129); ALT/SGPT 37 U/L (7.0-40); AST/SGOT 23 U/L (<34); BILIRUBIN,TOTAL 1.3 MG/DL (0.3-1.2); BLOOD UREA NITROGEN 11 MG/DL (9-23); CALCIUM LEVEL 8.7 MG/DL (8.3-10.6); CARBON DIOXIDE LEVEL 27 MMOL/L (20-31); CHLORIDE LEVEL 108 MMOL/L (98-107); CHOLESTEROL LEVEL 108 MG/DL (<200); CHOLESTEROL RISK RATIO 2.68 (<5); CREATININE FOR GFR 0.82 MG/DL (0.70-1.30); GLOMERULAR FILTRATION RATE > 60.0 (>49); GLUCOSE, FASTING 87 MG/DL (74-106); HDL CHOLESTEROL 40.2 MG/DL (>40); HEMOGLOBIN A1c 4.4 % (4.0-6.0); NON-HDL-C 67.8 MG/DL; POTASSIUM SERUM 4.4 MMOL/L (3.5-5.1); SODIUM LEVEL 144 MMOL/L (136-145); TOTAL PROTEIN 6.5 G/DL (5.7-8.2); TRIGLYCERIDES LEVEL 274 MG/DL (<150)
== END ==
LOC: M LAB 07:57
PROVIDERS: ATTEND Physician Assistant
DX: E78.00 Pure hypercholesterolemia, unspecified (principal); I10 Essential (primary) hypertension; G47.33 Obstructive sleep apnea (adult) (pediatric); M10.9 Gout, unspecified; D69.6 Thrombocytopenia, unspecified; I25.2 Old myocardial infarction; Z95.5 Presence of coronary angioplasty implant and graft

== ENCOUNTER → 2024-10-08 | Outpatient (CLI) | payer BC ==
[~2024-10-08] MED LIST changes: +LATANOPROST
== END ==
LOC: M RAD 09:11
PROVIDERS: ATTEND Internal Medicine Medical Oncology
DX: D69.6 Thrombocytopenia, unspecified (principal)

== ENCOUNTER → 2025-03-09 | Outpatient (REF) | payer BC ==
[~2025-03-09] MED LIST changes: -FLOM0.4C39 PO; +TAMS-18 PO
== END ==
LOC: M LAB REF 14:47
PROVIDERS: ATTEND Urology
DX: N40.0 Benign prostatic hyperplasia without lower urinary tract symptoms (principal)